=== PATIENT | male | born 1990 | race African-American/Black ===

== ENCOUNTER 2025-02-05 17:32 | Inpatient (IN) | payer OTHER, SELFPAY ==
[2025-02-05 17:51] VITALS: BP 154/74; PULSE 123; RESP 18; TEMP 36.9; O2SAT 99; BMI 21.7
--- NOTE | 2025-02-05 19:32 | ED.SKABFB ---
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 He has a history of hidradenitis suppurative and in [place] has been working with Dermatology, surgeons and primary care. And on multiple antibiotics for control including clindamycin, doxycycline, rifampin and minocycline currently is on both clindamycin and rifampin. He states that he is having a significant flare of his hidradenitis suppurative with increasing pain and difficulty sitting with purulence from multiple sites along his buttock and groin. Did speak with his heating fixture tender in [place] who said that the next step in treatment would either be surgery or 1 of the biologic injectables. 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 He comes in for further evaluation. Aside from significant pain he does not complain of fevers or chills. He is concerned that the draining is getting worse Related Data Home Medications ?Medication ?Instructions ?Recorded ?Confirmed clindamycin HCl 300 mg capsule 300 mg PO BID 02/06/25 02/06/25 prednisone 10 mg tablet 30 mg PO DAILY 02/06/25 02/06/25 rifampin 300 mg capsule 600 mg PO DAILY 02/06/25 02/06/25 Allergies Allergy/AdvReac Type Severity Reaction Status Date / Time Penicillins Allergy Severe Hives Verified 02/05/25 17:50 Review of Systems Review of Systems Narrative: Pertinent positive and negative findings as per HPI Patient History Medical History Suppurative hidradenitis Social History household members: family Smoking Status: Never smoker alcohol intake: current Smoking Status: Never smoker Exam Initial Vital Signs Initial Vital Signs: Vital Signs Temperature 98.5 F 02/05/25 17:51 Pulse Rate 123 H 02/05/25 17:51 Respiratory Rate 18 02/05/25 17:51 Blood Pressure 154/74 H 02/05/25 17:51 Pulse Oximetry 99 02/05/25 17:51 Oxygen Delivery Method Room Air 02/05/25 17:51 General: Healthy appearing, in obvious pain but Able to give a complete and coherent history. Well-nourished well-developed HEENT: Moist mucous membranes, normal sclera with reactive pupils, Respiratory: Lungs are clear to auscultation, no wheezing no rales no rhonchi. Full and symmetrical air movement Cardiac: Tachycardic but otherwise Regular rate and rhythm no murmurs no bruits Abdomen: Soft, nontender, no rebound or guarding, no flank pain Skin: Skin over the left buttocks and groin with induration and drainage with scarring consistent with hidradenitis suppurative Neurologic: Grossly neurologically intact with no obvious asymmetries or abnormalities Extremities: No trauma, well perfused Psych: Cooperative, appropriate insight and affect Course Orders Ordered: Acetaminophen (Acetaminophen 325 Mg Tablet) 975 mg PO Q6H PRN PRN Reason: Fever/Mild Pain (1-3) Hydromorphone HCl (Hydromorphone 0.5 Mg Inj) 0.5 mg IV Q2H PRN PRN Reason: Pain, Severe (7-10) Last Admin: 02/06/25 04:04 Dose: 0.5 mg Documented By: [facility] Lactated Ringer's (Lactated Ringers) 1,000 mls @ 100 mls/hr IV CONT [facility] Last Admin: 02/06/25 02:27 Dose: 100 mls/hr Documented By: [facility] Ceftriaxone Sodium 2,000 mg/ (Sodium Chloride) 100 mls @ 200 mls/hr IV Q24H [facility] Vancomycin HCl (Vancomycin) 1,000 mg in 200 mls @ 200 mls/hr IV Q8H [facility] Naloxone HCl (Naloxone 0.4 Mg/Ml Vial) 0.2 mg IV Q2MIN PRN PRN Reason: Opiate Reversal Ondansetron HCl (Ondansetron 4 Mg/2 Ml Inj) 4 mg IV Q8HR PRN PRN Reason: Nausea And Vomiting Tramadol HCl (Tramadol 50 Mg Tablet) 100 mg PO Q6H PRN PRN Reason: Pain, Moderate (4-6) Vancomycin HCl (Vancomycin Per Pharmacy) 1 request MIS NOW PRN PRN Reason: cellulitis Vancomycin HCl (Vancomycin Trough) 1 request [facility] [address] [facility] Stop: 02/07/25 11:31 Discontinued Medications Hydromorphone HCl (Hydromorphone 0.5 Mg Inj) 0.5 mg IV Q15MIN PRN PRN Reason: Pain, Ceftriaxone Sodium 2,000 mg/ (Sodium Chloride) 100 mls @ 200 mls/hr IV NOW ONE Stop: 02/05/25 19:59 Last Infusion: 02/05/25 21:10 Dose: Infused Documented By: Admin: 02/05/25 20:32 Dose: 200 mls/hr Documented By: SHRADDHA Vancomycin HCl/Dextrose (Vancomycin) 1,500 mg in 300 mls @ 200 mls/hr IV NOW ONE Stop: 02/05/25 21:44 Last Infusion: 02/05/25 22:48 Dose: Infused Documented By: Admin: 02/05/25 21:15 Dose: 200 mls/hr Documented By: LAM Vancomycin HCl 750 mg/ Sodium (Chloride) 250 mls @ 250 mls/hr IV Q8H [facility] Last Admin: 02/06/25 06:07 Dose: 250 mls/hr Documented By: DEBORAH Ketorolac Tromethamine (Ketorolac 30 Mg/Ml Vial) 15 mg IV NOW ONE Stop: 02/05/25 19:59 Last Admin: 02/05/25 20:32 Dose: 15 mg Documented By: SHRADDHA Oxycodone/Acetaminophen (Oxycodone/Acetaminophen 5/325 Tablet) 1 tab PO NOW ONE Stop: 02/05/25 23:39 Last Admin: 02/05/25 23:55 Dose: 1 tab Documented By: EDELMIRA Vancomycin HCl (Vancomycin Per Pharmacy) 1 request MISC NOW ONE Stop: 02/05/25 20:02 Last Admin: 02/05/25 21:36 Dose: 1 request Documented By: SHRADDHA Vital Signs Vital signs: Vital Signs - 8 hr 02/05/25 17:51 02/05/25 21:47 Temperature 98.5 F Pulse Rate 123 H 90 Respiratory Rate 18 18 Blood Pressure 154/74 H 115/71 Pulse Oximetry 99 100 Oxygen Delivery Method Room Air Room Air MDM - Skin/Abscess/Foreign Bdy Lab Data 02/06/25 06:32 02/06/25 06:32 Labs: Lab Results 02/05/25 Range/Units 20:15 WBC 13.3 H (4.5-11.0) X10^3/uL RBC 3.97 L (4.5-5.9) X10^6/uL Hgb 12.3 L (13.5-17.5) g/dL Hct 36.9 L (41-53) % MCV 92.9 (80-100) fL MCH 31.0 (26-34) PG MCHC 33.4 (30-36) % RDW 12.8 (11.6-14.8) % Plt Count 549 H (150-400) X10^3/uL Neut % (Auto) 71.5 (50-75) % Lymph % (Auto) 21.6 L (25-40) % [place] % (Auto) 5.4 (3-14) % Eos % (Auto) 0.8 L (2-4) % Baso % (Auto) 0.7 (0-2) % Neut # (Auto) 9500 H (1618-1408) /uL Lymph # (Auto) 2900 (2616-5155) /uL [place] # (Auto) 700 (0-900) /uL Eos # (Auto) 100 (0-450) /uL Baso # (Auto) 100 (0-100) /uL Sodium 138 (137-145) mmol/L Potassium 4.5 (3.4-5.1) mmol/L Chloride 103 (98-107) mmol/L Carbon Dioxide 27 (22-32) mmol/L BUN 16 (9-20) mg/dL Creatinine 1.15 (0.66-1.25) mg/dL Estimated GFR > 60 (>60) mL/min BUN/Creatinine Ratio 13.9 (6-22) Glucose 97 (70-99) mg/dL Lactate 1.0 (0.7-2.1) mmol/L Calcium 9.1 (8.4-10.2) mg/dL Total Bilirubin 0.3 (0.2-1.3) mg/dL AST 28 (17-59) IU/L ALT 24 (<50) IU/L Alkaline Phosphatase 99 (38-126) U/L Total Protein 9.9 H (6.3-8.2) g/dL Albumin 3.8 (3.5-5.0) g/dL Globulin 6.1 H (1.7-4.1) g/dL Albumin/Globulin Ratio 0.6 L (1.0-2.8) Imaging Data CT scan - abdomen/pelvis: Radiologist's Impression: PROCEDURE: CT ABDOMEN PELVIS W CON INDICATIONS: buttock and groin abscess TECHNIQUE: After the administration of intravenous contrast, axial sections acquired from the lung bases to the pubic symphysis. Coronal and sagittal reformats were performed. For radiation dose reduction, the following was used: automated exposure control, adjustment of mA and/or kV according to patient size. COMPARISON: None. FINDINGS: Image quality: Diagnostic. Lower Chest: No significant findings. ABDOMEN: Liver: No solid mass. Gallbladder: No wall thickening or calcified stones. Biliary ducts: No biliary dilation. Pancreas: No ductal dilation. Spleen: Size is within normal limits. Adrenal Glands: No adrenal nodules. Kidneys and Ureters: Symmetric enhancement. No nephrolithiasis or hydronephrosis. No visible mass or cyst requiring follow up. No hydroureter. Stomach and Bowel: Stomach and small bowel loops are normal caliber. Normal quantity of colonic stool. No suspicious colon wall thickening or inflammation. Normal appendix. Peritoneum: No abnormal intraperitoneal fluid. No free air. Ventral Wall: No significant ventral hernia. Abdominal Nodes: No retroperitoneal or mesenteric adenopathy by size criteria. Vessels: The abdominal aorta, IVC, and portal vein are of normal caliber. PELVIS: Pelvic Organs: Normal size prostate gland. Bladder: No bladder wall thickening, accounting for underdistention. Pelvic Nodes: Borderline left common iliac/pelvic sidewall node measuring 9 mm. Bulky left inguinal node measuring at least 1.5 cm short axis. Miscellaneous: Diffuse skin thickening over the left medial buttock from the superior gluteal cleft, inferior to the level of the thigh. At the inferior-most aspect, within the thickened skin, there is of small, ill-defined area measuring by 1.3 cm of decreased density which may be small phlegmon. There are also scattered foci of gas within the thickened skin. Skin thickening extends anteriorly to the perineal body and also involves the inferomedial right gluteal region. No other areas fluid or definite foci of gas. Bones: No aggressive osseous abnormality. IMPRESSION: Findings of cellulitis along the gluteal and perineal regions with a few foci of gas within the skin. Very small possible phlegmon in the left gluteal region. 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 Scattered reactive adenopathy in the left pelvis. Dictated by: Erica Suarez M.D. 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 Significant induration and drainage throughout the buttocks and groin worse on the left side Lab Test results independently reviewed as above. Pertinent findings: CBC shows a white count of 13.3, H and H of 12.3 and 36.9 Chemistries are reassuring with creatinine at 1.15 Lactic acid is not elevated Imaging studies independently reviewed: CT scan is reviewed. Reactive adenopathy, superficial cellulitis punctate areas of deeper infection no deeper abscess. Possibility of Yobany's gangrene was brought up by the radiologist however the subcutaneous air appreciated absolutely explained with his hidradenitis tracts. Consultations: Discussed with Dr Weber, surgeon. will consult will discuss with hospitalist. Treatments: Vancomycin, ceftriaxone Toradol, Dilaudid Re-evaluations: Discussed findings with the patient along with recommendation for hospitalization for IV antibiotics and surgical consultation to decide if any of these tracts need to be unroofed. Discussion: 34-year-old gentleman with severe hidradenitis suppurative with increasing infection despite clindamycin and rifampin appropriate suppressive doses currently being used. Increasing drainage and pain. CT scan shows a thickened skin with cellulitis, subcutaneous air as would be expected with this process no obvious deeper abscess but he does have reactive nodes. I recommended hospitalization for IV antibiotics and surgical consultation. 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
--- NOTE | 2025-02-05 19:59 | DI.CT.S_ITS ---
PROCEDURE: CT ABDOMEN PELVIS W CON INDICATIONS: buttock and groin abscess TECHNIQUE: After the administration of intravenous contrast, axial sections acquired from the lung bases to the pubic symphysis. Coronal and sagittal reformats were performed. For radiation dose reduction, the following was used: automated exposure control, adjustment of mA and/or kV according to patient size. COMPARISON: None. FINDINGS: Image quality: Diagnostic. Lower Chest: No significant findings. ABDOMEN: Liver: No solid mass. Gallbladder: No wall thickening or calcified stones. Biliary ducts: No biliary dilation. Pancreas: No ductal dilation. Spleen: Size is within normal limits. Adrenal Glands: No adrenal nodules. Kidneys and Ureters: Symmetric enhancement. No nephrolithiasis or hydronephrosis. No visible mass or cyst requiring follow up. No hydroureter. Stomach and Bowel: Stomach and small bowel loops are normal caliber. Normal quantity of colonic stool. No suspicious colon wall thickening or inflammation. Normal appendix. Peritoneum: No abnormal intraperitoneal fluid. No free air. Ventral Wall: No significant ventral hernia. Abdominal Nodes: No retroperitoneal or mesenteric adenopathy by size criteria. Vessels: The abdominal aorta, IVC, and portal vein are of normal caliber. PELVIS: Pelvic Organs: Normal size prostate gland. Bladder: No bladder wall thickening, accounting for underdistention. Pelvic Nodes: Borderline left common iliac/pelvic sidewall node measuring 9 mm. Bulky left inguinal node measuring at least 1.5 cm short axis. Miscellaneous: Diffuse skin thickening over the left medial buttock from the superior gluteal cleft, inferior to the level of the thigh. At the inferior-most aspect, within the thickened skin, there is of small, ill-defined area measuring by 1.3 cm of decreased density which may be small phlegmon. There are also scattered foci of gas within the thickened skin. Skin thickening extends anteriorly to the perineal body and also involves the inferomedial right gluteal region. No other areas fluid or definite foci of gas. Bones: No aggressive osseous abnormality. IMPRESSION: Findings of cellulitis along the gluteal and perineal regions with a few foci of gas within the skin. Very small possible phlegmon in the left gluteal region. 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 Scattered reactive adenopathy in the left pelvis. Dictated by: Erica Suarez M.D. on 02/05/2025 at 20:53 Approved by: Erica Suarez M.D. on 02/05/2025 at 21:01
[2025-02-05 20:27] LABS: Add Manual Diff / Slide Review NO; Basophils Absolute Auto 100 /uL (0-100); Basophils Percent Auto 0.7 % (0-2); Eosinophils Absolute Auto 100 /uL (0-450); Eosinophils Percent Auto 0.8 % (2-4); Hematocrit 36.9 % (41-53); Hemoglobin 12.3 g/dL (13.5-17.5); Lymphocytes Absolute Auto 2900 /uL (1100-4500); Lymphocytes Percent Auto 21.6 % (25-40); Mean Corpuscular HGB Conc 33.4 % (30-36); Mean Corpuscular Volume 92.9 fL (80-100); Monocytes Absolute Auto 700 /uL (0-900); Monocytes Percent Auto 5.4 % (3-14); Neutrophils Absolute Auto 9500 /uL (1500-7000); Neutrophils Percent Auto 71.5 % (50-75); Platelet Count 549 X10^3/uL (150-400); Red Blood Cell Count 3.97 X10^6/uL (4.5-5.9); Red Cell Distribution Width 12.8 % (11.6-14.8); White Blood Cell Count 13.3 X10^3/uL (4.5-11.0)
[2025-02-05] MEDS: cefTRIAXone 2,000 MG in SODIUM CHLORIDE 0.9% 100 ML 200 MG IV (20:32)
[2025-02-05] MEDS: KETOROLAC 30 MG/ML VIAL 15 MG IV (20:32)
[2025-02-05 20:39] LABS: Alanine Aminotransferase 24 IU/L (<50); Albumin 3.8 g/dL (3.5-5.0); Albumin Globulin Ratio 0.6 (1.0-2.8); Alkaline Phosphatase 99 U/L (38-126); Aspartate Aminotransferase 28 IU/L (17-59); BUN Creatinine Ratio 13.9 (6-22); Bilirubin Total 0.3 mg/dL (0.2-1.3); Blood Urea Nitrogen 16 mg/dL (9-20); Calcium 9.1 mg/dL (8.4-10.2); Carbon Dioxide 27 mmol/L (22-32); Chloride 103 mmol/L (98-107); Estimated Glomerular Filt Rate > 60 mL/min (>60); Globulin 6.1 g/dL (1.7-4.1); Glucose 97 mg/dL (70-99); HEMOLYSIS < 15 (0-50); Potassium 4.5 mmol/L (3.4-5.1); Sodium 138 mmol/L (137-145); Total Protein 9.9 g/dL (6.3-8.2)
[2025-02-05] MEDS: VANCOMYCIN 1,500 MG/300 ML PIGGYBACK 200 MG IV (21:15)
[2025-02-05] MEDS: VANCOMYCIN PER PHARMACY 1 REQUEST MISC (21:36)
[2025-02-05 21:47] VITALS: BP 115/71; PULSE 90; RESP 18; O2SAT 100
[2025-02-05] MEDS: OXYCODONE/ACETAMINOPHEN 5/325 TABLET 1 TAB PO (23:55)
[2025-02-06] VITALS (16 sets, daily range): BP systolic 97–141; BP diastolic 49–83; PULSE 64–91; RESP 12–18; TEMP 36.1–36.7; O2SAT 97–100; BMI 20.9
--- NOTE | 2025-02-06 01:17 | PC.WOUNDPHOT ---
Right armpit Left armpit back buttocks Left buttocks/thigh Right buttocks/thigh
--- NOTE | 2025-02-06 01:52 | PC.WOUNDPHOT ---
Left cheek/neck Right neck chin
--- NOTE | 2025-02-06 01:58 | P.HP_ITS ---
History of Present Illness History of Present Illness Date Patient Seen: 02/06/25 Time Patient Seen: 01:00 Chief complaint: swelling and pain in groin Narrative: 34 y/o with PMH of hydradenitis suppurativa on current maintenance therapy with rifampin, clindamycin and prednisone, came to ED with swelling and pain in groin and multiple draining boils on left buttock and groin. Mild leukocytosis. Has significant tenderness and pain preventing him to work. He gets care in [place] where he follows with PCP, clinical nutritionist and surgeon for hydradenitis. 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 Discussed with surgery for I&D upon admission to medicine for IV abx and pain control.. [facility] Medical History Suppurative hidradenitis Social History household members: family Smoking Status: Never smoker alcohol intake: current Meds Home Medications and Allergies Home Medications ?Medication ?Instructions ?Recorded ?Confirmed ?Type clindamycin HCl 300 mg capsule 300 mg PO BID 02/06/25 02/06/25 History prednisone 10 mg tablet 30 mg PO DAILY 02/06/2501/26 History rifampin 300 mg capsule 600 mg PO DAILY 02/06/2508/21 History Allergies Allergy/AdvReac Type Severity Reaction Status Date / Time Penicillins Allergy Severe Hives Verified 02/05/25 17:50 Review of Systems Review of Systems Narrative: General - without fever or chills CVS - w/o chest pain RS - w/o cough ro dyspnea GI / - negative SKIN - draining boils in left groin / buttock Exam Vital Signs (past 8 hours): - 02/05/25 21:47 02/06/25 00:12 02/06/25 00:30 Temperature 98.1 F Pulse Rate 90 89 89 Respiratory Rate 18 18 18 Blood Pressure 115/71 141/72 H 105/63 Pulse Oximetry 100 100 100 Oxygen Delivery Method Room Air Room Air Oxygen Flow Rate 0 02/06/25 01:17 Temperature Pulse Rate Respiratory Rate Blood Pressure Pulse Oximetry Oxygen Delivery Method Room Air Oxygen Flow Rate Oxygen Delivery Method Room Air Oxygen Flow Rate 0 Narrative Exam Narrative: General - in no distress Skin - Lt buttock / groin - cellulitis, draining hydradenitis supp. CVVS - RRR RS - normal respiratory effort Neuro - lucid, normal mood, w/o deficits Objective Imaging CT scan - abdomen: Radiologist's impression: Findings of cellulitis along the gluteal and perineal regions with a few foci of gas within the skin. Very small possible phlegmon in the left gluteal region. 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 Scattered reactive adenopathy in the left pelvis. Labs 02/05/25 20:15 02/05/25 20:15 Labs: Laboratory Results - last 24 hr 02/05/25 20:15 WBC 13.3 H RBC 3.97 L Hgb 12.3 L Hct 36.9 L MCV 92.9 MCH 31.0 MCHC 33.4 RDW 12.8 Plt Count 549 H Neut % (Auto) 71.5 Lymph % (Auto) 21.6 L [place] % (Auto) 5.4 Eos % (Auto) 0.8 L Baso % (Auto) 0.7 Neut # (Auto) 9500 H Lymph # (Auto) 2900 [place] # (Auto) 700 Eos # (Auto) 100 Baso # (Auto) 100 Sodium 138 Potassium 4.5 Chloride 103 Carbon Dioxide 27 BUN 16 Creatinine 1.15 Estimated GFR > 60 BUN/Creatinine Ratio 13.9 Glucose 97 Lactate 1.0 Calcium 9.1 Total Bilirubin 0.3 AST 28 ALT 24 Alkaline Phosphatase 99 Total Protein 9.9 H Albumin 3.8 Globulin 6.1 H Albumin/Globulin Ratio 0.6 L Assessment & Plan Assessment and plan (1) Hidradenitis suppurativa of anogenital region: Status: Acute (2) Abscess of skin or subcutaneous tissue: Qualifiers: Site of cutaneous abscess: buttock Qualified Code(s): L02.31 - Cutaneous abscess of buttock Status: Acute (3) Cellulitis: Qualifiers: Site of cellulitis: buttock Qualified Code(s): L03.317 - Cellulitis of buttock Status: Acute Assessment & Plan narrative: Hydradenitis Suppurativa of groin / Cellulitis - IV Rocephin and vancomycin on admission, can deescalate - pain control - NPO, LR for possible I&D by surgery in AM DVT prophylaxis - SCDs Patient consented to telemedicine, audio-video encounter with RN assisting during the exam. Patient located at [place], [place]. Provider located in [place]. Time-Based Coding :: [TOTAL MINUTES] spent with patient and on the chart (including review of chart, obtaining history, exam, reviewing outside data, placing orders, documenting exam and treatment plan, and counseling patient) on [DATE].
[2025-02-06] MEDS: LACTATED RINGERS 1,000 ML 100 ML IV (02:27)
--- NOTE | 2025-02-06 02:49 | PC.NURSE ---
Patient admitted to room 210 per wheelchair from ER. States he came to the ER due to HS flare. Is alert and oriented. Breath sounds CTA with RA sat of 100%. HRR. Denied nausea. BT present and abdomen is soft. Denied dysuria with urination. Is independent with mobility but has tentative movements related to discomfort from HS. Open, draining wounds beneath bilateral axilla; redressed. Open wounds surrounded by firmness noted on left buttock. Open, draining, purulent, foul smelling wounds on bilateral groin/inner thighs. Drainage is brown with blood tinge; wound cultures done and sent to lab. Denied any pain at time of assessment. Fall risk score is low. Provided urinal to use in bed so as to minimize movements. Declined use of SCD's. Seen by Dr Meyer via tele medicine. MD talked with patient and discussed need for antibiotics and surgical consult. Wound pictures taken and MD will review them in [employer] once they are uploaded to chart. Oriented to room and call light. Provided snack per MD verbal order after which he was made NPO. Placed in contact isolation until wound culture results are returned.
[2025-02-06] MEDS: HYDROMORPHONE 0.5 MG INJ IV (04:04)
[2025-02-06] MEDS: VANCOMYCIN HCL 750 MG in SODIUM CHLORIDE 0.9% 250 ML 250 MG IV (06:07)
[2025-02-06 06:43] LABS: Add Manual Diff / Slide Review NO; Basophils Absolute Auto 100 /uL (0-100); Basophils Percent Auto 0.8 % (0-2); Eosinophils Absolute Auto 200 /uL (0-450); Eosinophils Percent Auto 1.3 % (2-4); Hematocrit 33.5 % (41-53); Hemoglobin 11.5 g/dL (13.5-17.5); Lymphocytes Absolute Auto 2200 /uL (1100-4500); Lymphocytes Percent Auto 17.4 % (25-40); Mean Corpuscular HGB Conc 34.2 % (30-36); Mean Corpuscular Hemoglobin 31.6 PG (26-34); Mean Corpuscular Volume 92.5 fL (80-100); Monocytes Absolute Auto 800 /uL (0-900); Monocytes Percent Auto 6.5 % (3-14); Neutrophils Absolute Auto 9300 /uL (1500-7000); Platelet Count 448 X10^3/uL (150-400); Red Blood Cell Count 3.62 X10^6/uL (4.5-5.9); Red Cell Distribution Width 12.8 % (11.6-14.8); White Blood Cell Count 12.6 X10^3/uL (4.5-11.0)
[2025-02-06 06:54] LABS: BUN Creatinine Ratio 12.8 (6-22); Blood Urea Nitrogen 16 mg/dL (9-20); Calcium 8.8 mg/dL (8.4-10.2); Carbon Dioxide 25 mmol/L (22-32); Chloride 105 mmol/L (98-107); Estimated Glomerular Filt Rate > 60 mL/min (>60); Glucose 109 mg/dL (70-99); HEMOLYSIS < 15 (0-50); Potassium 4.2 mmol/L (3.4-5.1); Sodium 136 mmol/L (137-145)
--- NOTE | 2025-02-06 08:25 | PM.HP.IH.1 ---
History of Present Illness History of Present Illness Date Patient Seen: 02/06/25 Time Patient Seen: 08:00 Chief complaint: swelling and pain in groin [facility] Medical History Suppurative hidradenitis Social History household members: family Smoking Status: Never smoker alcohol intake: current Meds Home Medications and Allergies Home Medications ?Medication ?Instructions ?Recorded ?Confirmed ?Type clindamycin HCl 300 mg capsule 300 mg PO BID 02/06/25 02/06/25 History prednisone 10 mg tablet 30 mg PO DAILY 02/06/25 02/06/25 History rifampin 300 mg capsule 600 mg PO DAILY 02/06/25 02/06/25 History Allergies Allergy/AdvReac Type Severity Reaction Status Date / Time Penicillins Allergy Severe Hives Verified 02/05/25 17:50 Exam Vital Signs (past 8 hours): - 02/06/25 00:30 02/06/25 01:17 Temperature 98.1 F Pulse Rate 89 Respiratory Rate 18 Blood Pressure 105/63 Pulse Oximetry 100 Oxygen Delivery Method Room Air Oxygen Flow Rate 0 Oxygen Delivery Method Room Air Oxygen Flow Rate 0 Objective Labs 02/07/25 05:55 02/07/25 05:55 Labs: Laboratory Results - last 24 hr 02/05/25 02/06/25 20:15 06:32 WBC 13.3 H 12.6 H RBC 3.97 L 3.62 L Hgb 12.3 L 11.5 L Hct 36.9 L 33.5 L MCV 92.9 92.5 MCH 31.0 31.6 MCHC 33.4 34.2 RDW 12.8 12.8 Plt Count 549 H 448 H Neut % (Auto) 71.5 74.0 Lymph % (Auto) 21.6 L 17.4 L [place] % (Auto) 5.4 6.5 Eos % (Auto) 0.8 L 1.3 L Baso % (Auto) 0.7 0.8 Neut # (Auto) 9500 H 9300 H Lymph # (Auto) 2900 2200 [place] # (Auto) 700 800 Eos # (Auto) 100 200 Baso # (Auto) 100 100 Sodium 138 136 L Potassium 4.5 4.2 Chloride 103 105 Carbon Dioxide 27 25 BUN 16 16 Creatinine 1.15 1.25 Estimated GFR > 60 > 60 BUN/Creatinine Ratio 13.9 12.8 Glucose 97 109 H Lactate 1.0 Calcium 9.1 8.8 Total Bilirubin 0.3 AST 28 ALT 24 Alkaline Phosphatase 99 Total Protein 9.9 H Albumin 3.8 Globulin 6.1 H Albumin/Globulin Ratio 0.6 L Assessment & Plan Time-Based Coding :: [TOTAL MINUTES] spent with patient and on the chart (including review of chart, obtaining history, exam, reviewing outside data, placing orders, documenting exam and treatment plan, and counseling patient) on [DATE]. [employer] Document charge(s): Yes
--- NOTE | 2025-02-06 09:17 | P.CONS_ITS ---
History of Present Illness Consult details Date Patient Seen: 02/06/25 Time Patient Seen: 08:00 Chief complaint: swelling and pain in groin Narrative: 34-year-old male with history of hidradenitis suppurativa managed as an outpatient by a energy systems laboratory director in [place]. The patient's job brought him to [place] at which time he noted a flare of his hidradenitis with increased pain and drainage. Proceeded to the emergency department where several areas of drainage from both groins and both buttocks were noted. CT scan demonstrated a possible phlegmon. I am consulted to render a surgical opinion regarding the need for surgical intervention to drain the various areas of his groin and buttock. He indicates that he feels better this morning than he did at presentation last night. Meds Home Medications and Allergies Home Medications ?Medication ?Instructions ?Recorded ?Confirmed ?Type clindamycin HCl 300 mg capsule 300 mg PO BID 02/06/25 02/06/25 History prednisone 10 mg tablet 30 mg PO DAILY 02/06/2501/26 History rifampin 300 mg capsule 600 mg PO DAILY 02/06/2508/21 History Allergies Allergy/AdvReac Type Severity Reaction Status Date / Time Penicillins Allergy Severe Hives Verified 02/05/25 17:50 Review of Systems Review of Systems Narrative: Comprehensive review of systems negative to direct questioning with the exception of the previously mentioned chronic conditions. Exam Vital Signs (past 8 hours): - 02/06/25 07:00 Temperature 97.5 F L Pulse Rate 85 Respiratory Rate 16 Blood Pressure 113/67 Pulse Oximetry 99 Oxygen Flow Rate 0 Oxygen Delivery Method Room Air Oxygen Flow Rate 0 Narrative Exam Narrative: Head is normocephalic and atraumatic. Neck is supple. Back is without CVA or spinous process tenderness. Lungs are clear to auscultation. Chest is symmetric and nontender with normal inspiratory and expiratory excursion. Heart has a regular rate and rhythm with no murmur or gallop. Abdomen is soft and nontender with normal bowel sounds. Groin exam is remarkable for 1 x 2 cm areas of induration, tenderness and drainage bilaterally at the scrotal base. There is a small area of fluctuance in the right groin of 7 x 12 mm size. Right medial thigh is remarkable for a 4 x 5 cm area of tenderness and fluctuance with a few punctate areas of drainage. A similar areas present on the left medial thigh. There is on the right buttock a 3 x 4 cm area of induration with no drainage. Left buttock is remarkable for a 6 by 8 mm area of induration, tenderness with a few dependent areas of punctate drainage. Genital exam is otherwise unremarkable. Neurological exam is nonfocal. Extremities manifests full range of motion with a 5 of 5 strength. Objective Labs 02/06/25 06:32 02/06/25 06:32 Labs: Laboratory Results - last 24 hr 02/05/25 02/06/25 20:15 06:32 WBC 13.3 H 12.6 H RBC 3.97 L 3.62 L Hgb 12.3 L 11.5 L Hct 36.9 L 33.5 L MCV 92.9 92.5 MCH 31.0 31.6 MCHC 33.4 34.2 RDW 12.8 12.8 Plt Count 549 H 448 H Neut % (Auto) 71.5 74.0 Lymph % (Auto) 21.6 L 17.4 L [place] % (Auto) 5.4 6.5 Eos % (Auto) 0.8 L 1.3 L Baso % (Auto) 0.7 0.8 Neut # (Auto) 9500 H 9300 H Lymph # (Auto) 2900 2200 [place] # (Auto) 700 800 Eos # (Auto) 100 200 Baso # (Auto) 100 100 Sodium 138 136 L Potassium 4.5 4.2 Chloride 103 105 Carbon Dioxide 27 25 BUN 16 16 Creatinine 1.15 1.25 Estimated GFR > 60 > 60 BUN/Creatinine Ratio 13.9 12.8 Glucose 97 109 H Lactate 1.0 Calcium 9.1 8.8 Total Bilirubin 0.3 AST 28 ALT 24 Alkaline Phosphatase 99 Total Protein 9.9 H Albumin 3.8 Globulin 6.1 H Albumin/Globulin Ratio 0.6 L [facility] Medical History Suppurative hidradenitis Social History household members: family Tobacco & Substance Use Smoking Status: Never smoker alcohol intake: current Assessment & Plan Assessment and plan (1) Hidradenitis suppurativa of anogenital region: Status: Acute (2) Abscess of skin or subcutaneous tissue: Qualifiers: Site of cutaneous abscess: buttock Qualified Code(s): L02.31 - Cutaneous abscess of buttock Status: Acute Plan IV antibiotics are indicated. I believe the individual is best served with drainage and debridement of groin, thighs and buttock areas of induration and drainage with secondary intent healing. Alternatives, risks and benefits were discussed in detail. The patient desires to proceed as I have outlined. We will accommodate him today when an OR can be made available. Time-Based Coding :: [TOTAL MINUTES] spent with patient and on the chart (including review of chart, obtaining history, exam, reviewing outside data, placing orders, documenting exam and treatment plan, and counseling patient) on [DATE]. PROFEE Charge Codes Inpatient or Observation consultation: [id number]
--- NOTE | 2025-02-06 12:10 | CM.DANOTE ---
Initial DCP Assessment Visit Note Reviewed EMR and team rounds for pt's medical status and updates. Met with pt at bedside to introduce self and role, pt was found to be somnolent, however was alert/oriented during this visit interaction. Pt lives independently with family in his home in [place], [place]. 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 His shipping company will take care of his transportation and arrangements at the time of discharge. No CM needs other than completing Fit For Duty paperwork forms and Surgeon's recommendations in order for pt to have 2-weeks medical leave for recovery needs. Payor: Cristopher Attending: Dr. Solorzano/Hospitalist Pt is a 34 year-old M sent by his shipping company to the ED for further evaluation of painful, open, draining wounds on his buttock. Pt has a medical hx of hydradenitis suppurative, and has been working with his medical team in [place] due to several, chronic flares that he gets. He's on a combination of antibiotics and dermatology care. Unfortunately, pt does have a flare with several open, draining wounds along his buttock. Surgery was consulted, and the plan was made to take him to the OR this afternoon for an I&D. Pt may d/c after the procedure, or tomorrow am to a local motel. His company will be assisting him to make these arrangements. Discharge Planning/Care Management CM Discharge Assessment Start: 02/06/25 00:14 Freq: Status: Active Protocol: Document 02/06/25 12:08 DPL (Rec: 02/06/25 12:09 DPL [id number]) Discharge Planning Assessment Assigned Discharge MATHEUS Chen Marketing Communications Assistant Advance Directives? No History Provided By Patient,Medical Record Has Patient been No admitted in last 30 days? Prior Living House Arrangements Household Members family Type of Drives own vehicle transporation used prior to admit Independent with ADL Yes 's Is patient alert and Yes oriented? Caregiver for Yes: family Another Comment No identified home d/c needs at this time. Barriers to No Discharge Discharge Plan Home Referrals Initiated None needed Whiteboard Updated Yes in Patient Room with name and ext. # of Pig Furnace Operator Review Status In Process Please Provide Date 02/06/25 Initial DC Assessment Was Performed
[2025-02-06] MEDS: VANCOMYCIN 1,000 MG/200 ML PIGGYBACK 200 MG IV (12:22)
[2025-02-06] MEDS: LACTATED RINGERS 1,000 ML 42 ML IV (15:02)
--- NOTE | 2025-02-06 16:12 | SUR.OPER ---
Lithotomy on padded OR bed, head on pillow, arms secured on padded arm boards at <90 degrees abduction. Legs secured in padded yellow fins stirrups.
--- NOTE | 2025-02-06 16:27 | PM.HP.1 ---
History of Present Illness History of Present Illness Date Patient Seen: 02/06/25 Time Patient Seen: 01:00 Chief complaint: swelling and pain in groin Narrative: Per admitting provider, 34 y/o with PMH of hydradenitis suppurativa on current maintenance therapy with rifampin, clindamycin and prednisone, came to ED with swelling and pain in groin and multiple draining boils on left buttock and groin. Mild leukocytosis. Has significant tenderness and pain preventing him to work. 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 Discussed with surgery for I&D upon admission to medicine for IV abx and pain control.. [facility] Medical History Suppurative hidradenitis Social History household members: family Smoking Status: Never smoker alcohol intake: current Meds Home Medications and Allergies Home Medications ?Medication ?Instructions ?Recorded ?Confirmed ?Type clindamycin HCl 300 mg capsule 300 mg PO BID 02/06/25 02/06/25 History prednisone 10 mg tablet 30 mg PO DAILY 02/06/25 02/06/25 History rifampin 300 mg capsule 600 mg PO DAILY 02/06/25 02/06/25 History Allergies Allergy/AdvReac Type Severity Reaction Status Date / Time Penicillins Allergy Severe Hives Verified 02/05/25 17:50 Review of Systems Review of Systems Narrative: All other systems reviewed with the patient and are negative unless otherwise stated. Exam Vital Signs (past 8 hours): - 02/06/25 15:03 Temperature 98.1 F Pulse Rate 88 Respiratory Rate 16 Blood Pressure 104/67 Pulse Oximetry 98 Oxygen Delivery Method Room Air Oxygen Delivery Method Room Air Oxygen Flow Rate 0 Narrative Exam Narrative: General - in no distress CVVS - RRR RS - normal respiratory effort Neuro - lucid, normal mood, w/o deficits Objective Labs 02/06/25 06:32 02/06/25 06:32 Labs: Laboratory Results - last 24 hr 02/05/25 02/06/25 20:15 06:32 WBC 13.3 H 12.6 H RBC 3.97 L 3.62 L Hgb 12.3 L 11.5 L Hct 36.9 L 33.5 L MCV 92.9 92.5 MCH 31.0 31.6 MCHC 33.4 34.2 RDW 12.8 12.8 Plt Count 549 H 448 H Neut % (Auto) 71.5 74.0 Lymph % (Auto) 21.6 L 17.4 L [place] % (Auto) 5.4 6.5 Eos % (Auto) 0.8 L 1.3 L Baso % (Auto) 0.7 0.8 Neut # (Auto) 9500 H 9300 H Lymph # (Auto) 2900 2200 [place] # (Auto) 700 800 Eos # (Auto) 100 200 Baso # (Auto) 100 100 Sodium 138 136 L Potassium 4.5 4.2 Chloride 103 105 Carbon Dioxide 27 25 BUN 16 16 Creatinine 1.15 1.25 Estimated GFR > 60 > 60 BUN/Creatinine Ratio 13.9 12.8 Glucose 97 109 H Lactate 1.0 Calcium 9.1 8.8 Total Bilirubin 0.3 AST 28 ALT 24 Alkaline Phosphatase 99 Total Protein 9.9 H Albumin 3.8 Globulin 6.1 H Albumin/Globulin Ratio 0.6 L Assessment & Plan Assessment & Plan narrative: Hydradenitis Suppurativa of groin / Cellulitis - IV Rocephin and vancomycin on admission, can deescalate once cultures available. Mild leukocytosis 13 on admit improved slightly to 12.6 today. - pain control as needed. - NPO today for planned surgery. - Cr 1.25 today, 1.15 on admit, no other signs of sepsis. Continue to monitor with morning labs. DVT prophylaxis - SCDs Code: Full, discussed with patient. DVT: SCDs I have utilized all available immediate resources to obtain, update, or review the patient's current medications. Dispo: patient admitted under inpatient status. Likely discharge home in 1-2 days depending on surgical interventions and care after. Additional history obtained via discussions with the overnight hospitalist. These discussions contributed to the creation of the above assessment and plan. I have reviewed patient's presenting documentation, labs, and imaging personally. Time-Based Coding :: [TOTAL MINUTES] spent with patient and on the chart (including review of chart, obtaining history, exam, reviewing outside data, placing orders, documenting exam and treatment plan, and counseling patient) on [DATE].
[2025-02-06] MEDS: LACTATED RINGERS 1,000 ML 120 ML IV (16:48)
--- NOTE | 2025-02-06 16:55 | PM.OP.1 ---
Operative Date/Time/Diagnoses Date of procedure: 02/06/25 Time of procedure: 15:30 Pre-op diagnosis: Hidradenitis suppurative Post-op diagnosis: same Procedure & Clinicians Procedure: Incision drainage and debridement Same procedure as scheduled: Yes Indications: Hidradenitis suppurative I Surgeon: Anton Samuel Click Yes if Unassisted: Yes Anesthesia Type: General Operative Notes Findings: Hidradenitis suppurativa with multiple serpiginous sub dermal sinus tracts. Closure Type: non-primary Specimen(s): other (Wound culture) Applied: none Estimated Blood Loss (mL): 50 Blood products transfused: none Procedure in detail: Patient was transported to the operating room and was placed on the table in the supine position. General endotracheal anesthesia was induced and the patient was placed in lithotomy position. The perineum and groins were prepped and draped in the usual sterile manner. Attention was directed to the right groin where a 1 x 2 cm abscess was incised and drained. This was packed open. There was no tracking. Attention was directed to the right medial thigh in a series of drainage sites were interconnected. These were traced with hemostats and lacrimal probes. The tracts were all unroofed sharply with the electrocautery and were packed open. This resulted in an X shape wound whose legs were 6 cm in length. Attention was directed to the left medial thigh. Another series of drainage sites were tract and the tract unroofed. This resulted in a wound of 5 cm length by 1 cm. A small abscess of the right scrotal base was incised and this was of 1 cm length. Attention was directed to the left buttock where another series of drainage sites were probed with hemostats and lacrimal probes. These were all unroofed and this traced up the left side of the gluteal cleft from a point overlying the ipsilateral ischial spine a distance of about 15 cm. All sinus tracts were bluntly debrided and hemostasis was obtained with direct pressure. Tracts were traced back to the point where dermis was firmly fixed to underlying tissues and completely unroofed. Dressings were applied. The patient tolerated the procedure well and was transported to the recovery room in stable condition. Complications: none Post-operative Condition: stable Disposition: PACU Plan for aftercare: Local wound care and pain control.
[2025-02-06] MEDS: OXYCODONE IR 5 MG TABLET PO (17:09)
[2025-02-06] MEDS: HYDROMORPHONE 1 MG INJ IV ×4 (17:10→17:25)
[2025-02-06] MEDS: LACTATED RINGERS 1,000 ML 125 ML IV (18:23)
--- NOTE | 2025-02-06 21:59 | PC.NURSE ---
shift boss RN was given note from desk interviewer staff to talk with Bessie at [employer]; RN confirmed this with patient prior to contacting hetras Patient verbalized okay to release information. RN called given number; and left a message to return call at main RN phone line; Patient is stable post opt, MD has a plan of care to monitor patient for 1-2 days for any signs of infection/complications and pain management; then D/C with oral medications [place] to [place] and [place].
[2025-02-06] MEDS: HYDROMORPHONE 2 MG TABLET PO (23:53)
[2025-02-07 02:00] VITALS: O2SAT 99
[2025-02-07] MEDS: HYDROMORPHONE 2 MG TABLET PO ×2 (04:09→08:46)
[2025-02-07 05:48] VITALS: O2SAT 99
[2025-02-07 06:16] LABS: Add Manual Diff / Slide Review NO; Basophils Absolute Auto 100 /uL (0-100); Basophils Percent Auto 0.6 % (0-2); Eosinophils Absolute Auto 100 /uL (0-450); Eosinophils Percent Auto 0.6 % (2-4); Hematocrit 31.6 % (41-53); Hemoglobin 10.8 g/dL (13.5-17.5); Lymphocytes Absolute Auto 1600 /uL (1100-4500); Lymphocytes Percent Auto 11.5 % (25-40); Mean Corpuscular HGB Conc 34.2 % (30-36); Mean Corpuscular Hemoglobin 31.3 PG (26-34); Mean Corpuscular Volume 91.5 fL (80-100); Monocytes Absolute Auto 500 /uL (0-900); Monocytes Percent Auto 4.1 % (3-14); Neutrophils Absolute Auto 11200 /uL (1500-7000); Neutrophils Percent Auto 83.2 % (50-75); Platelet Count 440 X10^3/uL (150-400); Red Blood Cell Count 3.46 X10^6/uL (4.5-5.9); Red Cell Distribution Width 12.5 % (11.6-14.8); White Blood Cell Count 13.5 X10^3/uL (4.5-11.0)
[2025-02-07 06:22] LABS: BUN Creatinine Ratio 13.6 (6-22); Blood Urea Nitrogen 15 mg/dL (9-20); Calcium 8.7 mg/dL (8.4-10.2); Carbon Dioxide 26 mmol/L (22-32); Chloride 103 mmol/L (98-107); Estimated Glomerular Filt Rate > 60 mL/min (>60); Glucose 87 mg/dL (70-99); HEMOLYSIS < 15 (0-50); Potassium 4.3 mmol/L (3.4-5.1); Sodium 134 mmol/L (137-145)
--- NOTE | 2025-02-07 07:45 | P.PN_ITS ---
Subjective Subjective Date Patient Seen: 02/07/25 Interval history: Chief complaint: Anal cleft and groin pain secondary to hidradenitis suppurativa and cellulitis History of present illness: 02/05/25: 34 y/o with PMH of hydradenitis suppurativa on current maintenance therapy with rifampin, clindamycin and prednisone, came to ED with swelling and pain in groin and multiple draining boils on left buttock and groin. Mild leukocytosis. Has significant tenderness and pain preventing him to work. 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 Discussed with surgery for I&D upon admission to medicine for IV abx and pain control.. CT of the abdomen pelvis: PELVIS: Pelvic Organs: Normal size prostate gland. Bladder: No bladder wall thickening, accounting for underdistention. Pelvic Nodes: Borderline left common iliac/pelvic sidewall node measuring 9 mm. Bulky left inguinal node measuring at least 1.5 cm short axis. Miscellaneous: Diffuse skin thickening over the left medial buttock from the superior gluteal cleft, inferior to the level of the thigh. At the inferior-most aspect, within the thickened skin, there is of small, ill-defined area measuring by 1.3 cm of decreased density which may be small phlegmon. There are also scattered foci of gas within the thickened skin. Skin thickening extends anteriorly to the perineal body and also involves the inferomedial right gluteal region. No other areas fluid or definite foci of gas. Bones: No aggressive osseous abnormality. IMPRESSION: Findings of cellulitis along the gluteal and perineal regions with a few foci of gas within the skin. Very small possible phlegmon in the left gluteal region. 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 Scattered reactive adenopathy in the left pelvis. Hospital course: 02/06: Patient underwent surgical debridement: Started on vancomycin and ceftriaxone in the emergency department Operative Notes Findings: Hidradenitis suppurativa with multiple serpiginous sub dermal sinus tracts. Closure Type: non-primary Specimen(s): other (Wound culture) ?...The perineum and groins were prepped and draped in the usual sterile manner. Attention was directed to the right groin where a 1 x 2 cm abscess was incised and drained. This was packed open. There was no tracking. Attention was directed to the right medial thigh in a series of drainage sites were interconnected. These were traced with hemostats and lacrimal probes. The tracts were all unroofed sharply with the electrocautery and were packed open. This resulted in an X shape wound whose legs were 6 cm in length. Attention was directed to the left medial thigh. Another series of drainage sites were tract and the tract unroofed. This resulted in a wound of 5 cm length by 1 cm. A small abscess of the right scrotal base was incised and this was of 1 cm length. Attention was directed to the left buttock where another series of drainage sites were probed with hemostats and lacrimal probes. These were all unroofed and this traced up the left side of the gluteal cleft from a point overlying the ipsilateral ischial spine a distance of about 15 cm. All sinus tracts were bluntly debrided and hemostasis was obtained with direct pressure. Tracts were traced back to the point where dermis was firmly fixed to underlying tissues and completely unroofed. Dressings were applied. The patient tolerated the procedure well and was transported to the recovery room in stable condition. Complications: none... 02/07: Pain satisfactory controlled postoperatively no fevers or chills overnight white count [id number] a 3% neutrophils Review of systems: No fevers or chills overnight No nausea or vomiting Good appetite No chest pains shortness of breath Physical exam: No acute distress No labored respirations No extremity edema Preliminary wound culture: Gram Stain Final 02/06/25-1757 White blood cells Moderate WBCs Gram Positive Cocci 4+ Gram Positive Rods 3+ Gram Negative Rods 1+ Aerobic Culture for wounds Pending Anaerobic Culture Pending Assessment and plan: Hydradenitis Suppurativa of groin / Cellulitis status post surgical debridement 02/06 * IV Rocephin and vancomycin on admission, changed to Zosyn per surgery stewardship * Monitor CBC tomorrow * Dressings per surgery orders Code: Full, discussed with patient. DVT: SCDs Time-Based Coding :: 35 minutes spent with patient and on the chart (including review of chart, obtaining history, exam, reviewing outside data, placing orders, documenting exam and treatment plan, and counseling patient) Exam Vital Signs (past 8 hours): - 02/06/25 23:49 02/07/25 02:00 02/07/25 05:48 Temperature 97.3 F L Pulse Rate 91 H Respiratory Rate 16 Blood Pressure 111/67 Pulse Oximetry 99 99 99 Oxygen Delivery Method Room Air Room Air Oxygen Flow Rate 0 Oxygen Delivery Method Room Air Oxygen Flow Rate 0 Objective Labs 02/07/25 05:55 02/07/25 05:55 Labs: Laboratory Results - last 24 hr 02/07/25 05:55 WBC 13.5 H RBC 3.46 L Hgb 10.8 L Hct 31.6 L MCV 91.5 MCH 31.3 MCHC 34.2 RDW 12.5 Plt Count 440 H Neut % (Auto) 83.2 H Lymph % (Auto) 11.5 L [place] % (Auto) 4.1 Eos % (Auto) 0.6 L Baso % (Auto) 0.6 Neut # (Auto) 20062 H Lymph # (Auto) 1600 [place] # (Auto) 500 Eos # (Auto) 100 Baso # (Auto) 100 Sodium 134 L Potassium 4.3 Chloride 103 Carbon Dioxide 26 BUN 15 Creatinine 1.10 Estimated GFR > 60 BUN/Creatinine Ratio 13.6 Glucose 87 Calcium 8.7 PFSH Medical History Suppurative hidradenitis Social History household members: family Smoking Status: Never smoker alcohol intake: current Assessment & Plan Time-Based Coding :: [TOTAL MINUTES] spent with patient and on the chart (including review of chart, obtaining history, exam, reviewing outside data, placing orders, documenting exam and treatment plan, and counseling patient) on [DATE].
[2025-02-07] MEDS: ENOXAPARIN 40 MG/0.4 ML SYRINGE SUBCUT (08:47)
[2025-02-07 10:00] VITALS: BP 116/67; PULSE 112; RESP 12; TEMP 37.1; O2SAT 98; O2SAT 99
--- NOTE | 2025-02-07 10:00 | P.PN_ITS ---
Subjective Subjective Date Patient Seen: 02/07/25 Time Patient Seen: 09:50 Exam Vital Signs (past 8 hours): - 02/07/25 05:48 Pulse Oximetry 99 Oxygen Delivery Method Room Air Oxygen Delivery Method Room Air Oxygen Flow Rate 0 Objective Labs 02/07/25 05:55 02/07/25 05:55 Labs: Laboratory Results - last 24 hr 02/07/25 05:55 WBC 13.5 H RBC 3.46 L Hgb 10.8 L Hct 31.6 L MCV 91.5 MCH 31.3 MCHC 34.2 RDW 12.5 Plt Count 440 H Neut % (Auto) 83.2 H Lymph % (Auto) 11.5 L [place] % (Auto) 4.1 Eos % (Auto) 0.6 L Baso % (Auto) 0.6 Neut # (Auto) 06958 H Lymph # (Auto) 1600 [place] # (Auto) 500 Eos # (Auto) 100 Baso # (Auto) 100 Sodium 134 L Potassium 4.3 Chloride 103 Carbon Dioxide 26 BUN 15 Creatinine 1.10 Estimated GFR > 60 BUN/Creatinine Ratio 13.6 Glucose 87 Calcium 8.7 PFSH Medical History Suppurative hidradenitis Social History household members: family Smoking Status: Never smoker alcohol intake: current Assessment & Plan Time-Based Coding :: [TOTAL MINUTES] spent with patient and on the chart (including review of chart, obtaining history, exam, reviewing outside data, placing orders, documenting exam and treatment plan, and counseling patient) on [DATE].
--- NOTE | 2025-02-07 10:02 | P.PN_ITS ---
Subjective Subjective Date Patient Seen: 02/07/25 Time Patient Seen: 09:50 Interval history: FEELS MUCH BETTER THAN PREOPERATIVELY. SIGNIFICANTLY LESS PAIN. TOLERANT OF REGULAR DIET. Exam Vital Signs (past 8 hours): - 02/07/25 05:48 Pulse Oximetry 99 Oxygen Delivery Method Room Air Oxygen Delivery Method Room Air Oxygen Flow Rate 0 Narrative Exam Narrative: LUNGS ARE CLEAR TO AUSCULTATION. HEART HAS A REGULAR RATE AND RHYTHM WITH NO MURMUR OR GALLOP. ABDOMEN IS SOFT AND NONTENDER WITH NORMAL BOWEL SOUNDS. DRESSING CHANGE WAS DONE ABOUT AN HOUR AGO. DRESSINGS ARE DRY. THEY APPEARED TO BE ADEQUATE. Objective Labs 02/07/25 05:55 02/07/25 05:55 Labs: Laboratory Results - last 24 hr 02/07/25 05:55 WBC 13.5 H RBC 3.46 L Hgb 10.8 L Hct 31.6 L MCV 91.5 MCH 31.3 MCHC 34.2 RDW 12.5 Plt Count 440 H Neut % (Auto) 83.2 H Lymph % (Auto) 11.5 L [place] % (Auto) 4.1 Eos % (Auto) 0.6 L Baso % (Auto) 0.6 Neut # (Auto) 71498 H Lymph # (Auto) 1600 [place] # (Auto) 500 Eos # (Auto) 100 Baso # (Auto) 100 Sodium 134 L Potassium 4.3 Chloride 103 Carbon Dioxide 26 BUN 15 Creatinine 1.10 Estimated GFR > 60 BUN/Creatinine Ratio 13.6 Glucose 87 Calcium 8.7 PFSH Medical History Suppurative hidradenitis Social History household members: family Smoking Status: Never smoker alcohol intake: current Assessment & Plan Assessment and plan (1) Hidradenitis suppurativa of anogenital region: Status: Acute Plan DOING WELL POSTOP DAY 1. CONTINUE DRESSING CHANGES. CONTINUE ZOSYN. Time-Based Coding :: [TOTAL MINUTES] spent with patient and on the chart (including review of chart, obtaining history, exam, reviewing outside data, placing orders, documenting exam and treatment plan, and counseling patient) on [DATE]. PROFEE Wildlife Science Professor Document charge(s): No
[2025-02-07] MEDS: PIPERACILLIN/TAZO 3.375 GM in SODIUM CHLORIDE 0.9% 100 ML IV ×2 (10:31→17:56)
--- NOTE | 2025-02-07 12:03 | PC.NURSE ---
Addendum entered by Gina Rodgers R.N. 02/07/25 16:51: Wet -- dry dsg change done to buttocks and scrotum. Med prior w/ Dilaudid 4mg po and half hr later 0.5mg IVP Pt tolerated fairly well New order for 1.0mg IVP prior to dsg change recieved. SL intact/patent. stood at bed side for a short time Call light w/in reach, pt calls appropriately for needs. Continue w/plan of care. Original Note: Pt med at 0845 for discomfort. Dsg saturated through Dsg changed w/ 4x4 & ABD pads. Pt tolerated fair. SL x 2 intact/patent Call light w/in reach, pt calls appropriately for needs.
--- NOTE | 2025-02-07 12:07 | CM.DPNOTE ---
DCP Continued: Reviewed EMR and team rounds for pt?s medical status. Per hospitalist, patient is post-op day 1 with continued IV abx and wound care. Anticipating not being medically cleared until 02/10, possibly. MELODY spoke with Bessie, Nurse Certified Home Health Aide at [facility]. She reviewed that she would appreciate the Medical Evaluation Treatment/Maximum Medical Improvement Letter and Travel Release form to be sent only when discharge is imminent for most updated pt status. She is requesting this to be sent via fax ([phone]) or email ([email or web address]). MELODY sent most updated clinicals via secure email to [facility] Certified [facility] Health Aide for review [Signed Release of Information at Care Management office]. Plan: Anticipating medical discharge on 02/10 or when medically cleared, pt Employer to coordinate travel arrangements back to [place], [place]. CM Team will continue to follow for coordination of discharge plans. RADHA Borjas
[2025-02-07 14:00] VITALS: O2SAT 96
[2025-02-07] MEDS: HYDROMORPHONE 2 MG TABLET 4 MG PO (15:20)
[2025-02-07] MEDS: HYDROMORPHONE 0.5 MG INJ IV (15:51)
[2025-02-07 18:00] VITALS: O2SAT 98
[2025-02-07 20:11] VITALS: BP 110/64; PULSE 88; RESP 19; TEMP 36.7; O2SAT 100
[2025-02-07] MEDS: HYDROMORPHONE 1 MG INJ IV (20:21)
[2025-02-07] MEDS: SODIUM CHLORIDE 0.9% FLUSH 10 ML IV (20:22)
[2025-02-08] VITALS (7 sets, daily range): BP systolic 104–110; BP diastolic 57–63; PULSE 77–86; RESP 15–21; TEMP 36.5–36.8; O2SAT 98–100
[2025-02-08] MEDS: HYDROMORPHONE 2 MG TABLET PO (00:33)
[2025-02-08] MEDS: PIPERACILLIN/TAZO 3.375 GM in SODIUM CHLORIDE 0.9% 100 ML IV ×3 (02:08→18:01)
[2025-02-08] MEDS: HYDROMORPHONE 0.5 MG INJ IV ×3 (02:10→22:21)
[2025-02-08] MEDS: ENOXAPARIN 40 MG/0.4 ML SYRINGE SUBCUT (08:23)
[2025-02-08] MEDS: SODIUM CHLORIDE 0.9% FLUSH 10 ML IV ×2 (08:23→22:21)
--- NOTE | 2025-02-08 09:13 | PM.PN.IH.1 ---
Subjective Subjective Date Patient Seen: 02/08/25 Time Patient Seen: 09:15 Interval history: Continues to feel well. Tolerant of regular diet. Pain control is adequate. Exam Vital Signs (past 8 hours): - 02/08/25 02:00 02/08/25 02:00 02/08/25 06:00 Temperature 98.3 F Pulse Rate 86 Respiratory Rate 21 Blood Pressure 107/61 Pulse Oximetry 100 100 Oxygen Delivery Method Room Air Room Air Oxygen Flow Rate 0 02/08/25 07:42 Temperature 97.7 F Pulse Rate 77 Respiratory Rate 15 Blood Pressure 104/57 L Pulse Oximetry 99 Oxygen Delivery Method Oxygen Flow Rate 0 Oxygen Delivery Method Room Air Oxygen Flow Rate 0 Narrative Exam Narrative: Lungs are clear to auscultation. Heart has a regular rate and rhythm. Abdomen is soft and nontender. Dressings are in place. They are dry. The wounds appear to be clean on examination. Objective Labs 02/07/25 05:55 02/07/25 05:55 [facility] Medical History Suppurative hidradenitis Social History household members: family Smoking Status: Never smoker alcohol intake: current Assessment & Plan Assessment and plan (1) Hidradenitis suppurativa of anogenital region: Status: Acute Plan Postop day 2 from incision drainage and debridement of perineal and bilateral inguinal hidradenitis suppurativa. Dressing changes and IV antibiotics are ongoing. Both these to be continued. As the patient is from [place], and will be returning there, the logistics of arranging his postoperative home health visits will be complicated. We will defer to social work and discharge planning in this regard. Dressing changes will likely be ongoing for several weeks. Time-Based Coding :: [TOTAL MINUTES] spent with patient and on the chart (including review of chart, obtaining history, exam, reviewing outside data, placing orders, documenting exam and treatment plan, and counseling patient) on [DATE]. 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
[2025-02-08 09:33] LABS: Add Manual Diff / Slide Review NO; Basophils Absolute Auto 100 /uL (0-100); Basophils Percent Auto 0.9 % (0-2); Eosinophils Absolute Auto 100 /uL (0-450); Eosinophils Percent Auto 1.4 % (2-4); Hematocrit 34.2 % (41-53); Hemoglobin 11.6 g/dL (13.5-17.5); Lymphocytes Absolute Auto 1400 /uL (1100-4500); Lymphocytes Percent Auto 15.7 % (25-40); Mean Corpuscular Hemoglobin 31.5 PG (26-34); Mean Corpuscular Volume 92.6 fL (80-100); Monocytes Absolute Auto 400 /uL (0-900); Monocytes Percent Auto 4.1 % (3-14); Neutrophils Absolute Auto 7000 /uL (1500-7000); Neutrophils Percent Auto 77.9 % (50-75); Platelet Count 453 X10^3/uL (150-400); Red Blood Cell Count 3.69 X10^6/uL (4.5-5.9); Red Cell Distribution Width 12.8 % (11.6-14.8)
[2025-02-08 09:41] LABS: BUN Creatinine Ratio 6.1 (6-22); Blood Urea Nitrogen 8 mg/dL (9-20); Carbon Dioxide 26 mmol/L (22-32); Chloride 101 mmol/L (98-107); Estimated Glomerular Filt Rate > 60 mL/min (>60); Glucose 166 mg/dL (70-99); HEMOLYSIS < 15 (0-50); Sodium 135 mmol/L (137-145)
[2025-02-08] MEDS: HYDROMORPHONE 1 MG INJ IV ×2 (14:36→18:02)
--- NOTE | 2025-02-08 16:05 | PC.NURSE ---
Addendum entered by Gena Frey R.N. 02/08/25 18:37: Provided second dressing change d/t contamination with stool after patient had BM. (Pt ambulated with FWW safely to bathroom and back.) Removed gauze and ABD pads premedicated with 1mg IVP hydromorphone, and replaced gauze + ABDs + paper tape. Pt states pain has gone down from 5/10 to 1/10. Pt states all needs met. Pt resting comfortably, call light within reach, bed low/locked, plan of care continues. Original Note: Premedicated pt with 1mg IVP hydromorphone; waited 35 minutes. Pt states pain is 1/10, but feels spicy/burning with movement. Removed ABD pads and gauze; repacked wounds with wet to dry dressing (gauze and ABD pads) as per MD orders. Retaped using paper tape, as pt states plastic tape is irritating to skin. Pt states pain is 3/10, but jumps with movement. Replaced pt hospital undies with new ones and replaced chucks pad. Pt currently resting comfortably, call light within reach, bed low/locked, plan of care continues.
--- NOTE | 2025-02-08 16:08 | P.PN_ITS ---
Subjective Subjective Date Patient Seen: 02/08/25 Interval history: Chief complaint: Anal cleft and groin pain secondary to hidradenitis suppurativa and cellulitis History of present illness: 02/05/25:34 y/o with PMH of hydradenitis suppurativa on current maintenance therapy with rifampin, clindamycin and prednisone, came to ED with swelling and pain in groin and multiple draining boils on left buttock and groin. Mild leukocytosis. Has significant tenderness and pain preventing him to work. 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 Discussed with surgery for I&D upon admission to medicine for IV abx and pain control.. CT of the abdomen pelvis: PELVIS: Pelvic Organs: Normal size prostate gland. Bladder: No bladder wall thickening, accounting for underdistention. Pelvic Nodes: Borderline left common iliac/pelvic sidewall node measuring 9 mm. Bulky left inguinal node measuring at least 1.5 cm short axis. Miscellaneous: Diffuse skin thickening over the left medial buttock from the superior gluteal cleft, inferior to the level of the thigh. At the inferior-most aspect, within the thickened skin, there is of small, ill-defined area measuring by 1.3 cm of decreased density which may be small phlegmon. There are also scattered foci of gas within the thickened skin. Skin thickening extends anteriorly to the perineal body and also involves the inferomedial right gluteal region. No other areas fluid or definite foci of gas. Bones: No aggressive osseous abnormality. IMPRESSION: Findings of cellulitis along the gluteal and perineal regions with a few foci of gas within the skin. Very small possible phlegmon in the left gluteal region. 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 Scattered reactive adenopathy in the left pelvis. Hospital course: 02/06: Patient underwent surgical debridement: Started on vancomycin and ceftriaxone in the emergency department Operative Notes Findings: Hidradenitis suppurativa with multiple serpiginous sub dermal sinus tracts. Closure Type: non-primary Specimen(s): other (Wound culture) ?...The perineum and groins were prepped and draped in the usual sterile manner. Attention was directed to the right groin where a 1 x 2 cm abscess was incised and drained. This was packed open. There was no tracking. Attention was directed to the right medial thigh in a series of drainage sites were interconnected. These were traced with hemostats and lacrimal probes. The tracts were all unroofed sharply with the electrocautery and were packed open. This resulted in an X shape wound whose legs were 6 cm in length. Attention was directed to the left medial thigh. Another series of drainage sites were tract and the tract unroofed. This resulted in a wound of 5 cm length by 1 cm. A small abscess of the right scrotal base was incised and this was of 1 cm length. Attention was directed to the left buttock where another series of drainage sites were probed with hemostats and lacrimal probes. These were all unroofed and this traced up the left side of the gluteal cleft from a point overlying the ipsilateral ischial spine a distance of about 15 cm. All sinus tracts were bluntly debrided and hemostasis was obtained with direct pressure. Tracts were traced back to the point where dermis was firmly fixed to underlying tissues and completely unroofed. Dressings were applied. The patient tolerated the procedure well and was transported to the recovery room in stable condition. Complications: none... 02/07: Pain satisfactory controlled postoperatively no fevers or chills overnight white count 49621 a 83% neutrophils 02/08: Pain medication increased during dressing changes due to pain white count as de-escalated to 9000 Review of systems: No fevers or chills overnight No nausea or vomiting Good appetite No chest pains shortness of breath Physical exam: No acute distress No labored respirations No extremity edema Preliminary wound culture: Gram Stain Final 02/06/25-1757 White blood cells Moderate WBCs Gram Positive Cocci 4+ Gram Positive Rods 3+ Gram Negative Rods 1+ Aerobic Culture for wounds Pending Anaerobic Culture Pending Assessment and plan: Hydradenitis Suppurativa of groin / Cellulitis status post surgical debridement 02/06 * IV Rocephin and vancomycin on admission, changed to Zosyn per surgery stewardship * Monitor CBC tomorrow * Dressings per surgery orders Code: Full, discussed with patient. 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 * Arrangements for outpatient treatment and transition we will require creativity through case management Time-Based Coding :: 35 minutes spent with patient and on the chart (including review of chart, obtaining history, exam, reviewing outside data, placing orders, documenting exam and treatment plan, and counseling patient) Exam Vital Signs (past 8 hours): - 02/08/25 10:00 02/08/25 14:00 Pulse Oximetry 99 99 Oxygen Delivery Method Room Air Room Air Oxygen Flow Rate 0 0 Oxygen Delivery Method Room Air Oxygen Flow Rate 0 Objective Labs 02/08/25 09:08 02/08/25 09:08 Labs: Laboratory Results - last 24 hr 02/08/25 09:08 WBC 9.0 RBC 3.69 L Hgb 11.6 L Hct 34.2 L MCV 92.6 MCH 31.5 MCHC 34.0 RDW 12.8 Plt Count 453 H Neut % (Auto) 77.9 H Lymph % (Auto) 15.7 L [place] % (Auto) 4.1 Eos % (Auto) 1.4 L Baso % (Auto) 0.9 Neut # (Auto) 7000 Lymph # (Auto) 1400 [place] # (Auto) 400 Eos # (Auto) 100 Baso # (Auto) 100 Sodium 135 L Potassium 4.0 Chloride 101 Carbon Dioxide 26 BUN 8 L Creatinine 1.31 H Estimated GFR > 60 BUN/Creatinine Ratio 6.1 Glucose 166 H Calcium 9.0 PFSH Medical History Suppurative hidradenitis Social History household members: family Smoking Status: Never smoker alcohol intake: current Assessment & Plan Time-Based Coding :: [TOTAL MINUTES] spent with patient and on the chart (including review of chart, obtaining history, exam, reviewing outside data, placing orders, documenting exam and treatment plan, and counseling patient) on [DATE].
[2025-02-09] MEDS: HYDROMORPHONE 0.5 MG INJ IV (01:47)
[2025-02-09] MEDS: PIPERACILLIN/TAZO 3.375 GM in SODIUM CHLORIDE 0.9% 100 ML IV ×3 (01:47→18:18)
[2025-02-09 02:00] VITALS: O2SAT 99
[2025-02-09] MEDS: HYDROMORPHONE 1 MG INJ IV ×4 (04:02→22:09)
[2025-02-09 06:00] VITALS: O2SAT 99
[2025-02-09 08:00] VITALS: BP 93/59; PULSE 72; RESP 14; TEMP 36.3; O2SAT 100
--- NOTE | 2025-02-09 08:27 | P.PN_ITS ---
Subjective Subjective Date Patient Seen: 02/09/25 Time Patient Seen: 08:30 Interval history: Feels well. Pain control adequate. Tolerant of regular diet. Exam Vital Signs (past 8 hours): - 02/09/25 02:00 02/09/25 06:00 02/09/25 08:00 Temperature 97.3 F L Pulse Rate 72 Respiratory Rate 14 Blood Pressure 93/59 L Pulse Oximetry 99 99 100 Oxygen Delivery Method Room Air Room Air Oxygen Flow Rate 0 Oxygen Delivery Method Room Air Oxygen Flow Rate 0 Narrative Exam Narrative: Lungs are clear to auscultation. Heart has a regular rate and rhythm with no murmur or gallop. Abdomen is soft and nontender. Lungs are clean and dressed. Objective Labs 02/08/25 09:08 02/08/25 09:08 Labs: Laboratory Results - last 24 hr 02/08/25 09:08 WBC 9.0 RBC 3.69 L Hgb 11.6 L Hct 34.2 L MCV 92.6 MCH 31.5 MCHC 34.0 RDW 12.8 Plt Count 453 H Neut % (Auto) 77.9 H Lymph % (Auto) 15.7 L [place] % (Auto) 4.1 Eos % (Auto) 1.4 L Baso % (Auto) 0.9 Neut # (Auto) 7000 Lymph # (Auto) 1400 [place] # (Auto) 400 Eos # (Auto) 100 Baso # (Auto) 100 Sodium 135 L Potassium 4.0 Chloride 101 Carbon Dioxide 26 BUN 8 L Creatinine 1.31 H Estimated GFR > 60 BUN/Creatinine Ratio 6.1 Glucose 166 H Calcium 9.0 PFSH Medical History Suppurative hidradenitis Social History household members: family Smoking Status: Never smoker alcohol intake: current Assessment & Plan Assessment and plan (1) Hidradenitis suppurativa of anogenital region: Status: Acute (2) Abscess of skin or subcutaneous tissue: Qualifiers: Site of cutaneous abscess: buttock Qualified Code(s): L02.31 - Cutaneous abscess of buttock Status: Acute Plan Doing well status post incision and drainage/debridement of hidradenitis flare. Continue IV antibiotics and dressing changes. Time-Based Coding :: [TOTAL MINUTES] spent with patient and on the chart (including review of chart, obtaining history, exam, reviewing outside data, placing orders, documenting exam and treatment plan, and counseling patient) on [DATE]. 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
[2025-02-09] MEDS: SODIUM CHLORIDE 0.9% FLUSH 10 ML IV ×3 (08:37→22:14)
[2025-02-09] MEDS: ENOXAPARIN 40 MG/0.4 ML SYRINGE SUBCUT (08:37)
[2025-02-09] MEDS: HYDROMORPHONE 2 MG TABLET 4 MG PO (08:46)
[2025-02-09 09:00] LABS: Add Manual Diff / Slide Review NO; Basophils Absolute Auto 100 /uL (0-100); Basophils Percent Auto 0.9 % (0-2); Eosinophils Absolute Auto 200 /uL (0-450); Eosinophils Percent Auto 2.8 % (2-4); Hematocrit 34.9 % (41-53); Hemoglobin 11.9 g/dL (13.5-17.5); Lymphocytes Absolute Auto 2100 /uL (1100-4500); Lymphocytes Percent Auto 24.1 % (25-40); Mean Corpuscular HGB Conc 34.3 % (30-36); Mean Corpuscular Hemoglobin 31.5 PG (26-34); Mean Corpuscular Volume 91.9 fL (80-100); Monocytes Absolute Auto 400 /uL (0-900); Monocytes Percent Auto 4.5 % (3-14); Neutrophils Absolute Auto 5900 /uL (1500-7000); Neutrophils Percent Auto 67.7 % (50-75); Platelet Count 491 X10^3/uL (150-400); Red Cell Distribution Width 12.7 % (11.6-14.8); White Blood Cell Count 8.6 X10^3/uL (4.5-11.0)
[2025-02-09 09:11] LABS: Blood Urea Nitrogen 11 mg/dL (9-20); Calcium 9.1 mg/dL (8.4-10.2); Carbon Dioxide 26 mmol/L (22-32); Chloride 102 mmol/L (98-107); Estimated Glomerular Filt Rate > 60 mL/min (>60); Glucose 117 mg/dL (70-99); HEMOLYSIS < 15 (0-50); Potassium 4.1 mmol/L (3.4-5.1); Sodium 136 mmol/L (137-145)
--- NOTE | 2025-02-09 09:19 | P.PN_ITS ---
Subjective Subjective Date Patient Seen: 02/09/25 Interval history: Chief complaint: Anal cleft and groin pain secondary to hidradenitis suppurativa and cellulitis wound culture positive for Pseudomonas also minor involvement of bilateral axilla History of present illness: 02/05/25:34 y/o with PMH of hydradenitis suppurativa on current maintenance therapy with rifampin, clindamycin and prednisone, came to ED with swelling and pain in groin and multiple draining boils on left buttock and groin. Mild leukocytosis. Has significant tenderness and pain preventing him to work. 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 Discussed with surgery for I&D upon admission to medicine for IV abx and pain control.. CT of the abdomen pelvis: PELVIS: Pelvic Organs: Normal size prostate gland. Bladder: No bladder wall thickening, accounting for underdistention. Pelvic Nodes: Borderline left common iliac/pelvic sidewall node measuring 9 mm. Bulky left inguinal node measuring at least 1.5 cm short axis. Miscellaneous: Diffuse skin thickening over the left medial buttock from the superior gluteal cleft, inferior to the level of the thigh. At the inferior-most aspect, within the thickened skin, there is of small, ill-defined area measuring by 1.3 cm of decreased density which may be small phlegmon. There are also scattered foci of gas within the thickened skin. Skin thickening extends anteriorly to the perineal body and also involves the inferomedial right gluteal region. No other areas fluid or definite foci of gas. Bones: No aggressive osseous abnormality. IMPRESSION: Findings of cellulitis along the gluteal and perineal regions with a few foci of gas within the skin. Very small possible phlegmon in the left gluteal region. 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 Scattered reactive adenopathy in the left pelvis. Hospital course: 02/06: Patient underwent surgical debridement: Started on vancomycin and ceftriaxone in the emergency department Operative Notes Findings: Hidradenitis suppurativa with multiple serpiginous sub dermal sinus tracts. Closure Type: non-primary Specimen(s): other (Wound culture) ?...The perineum and groins were prepped and draped in the usual sterile manner. Attention was directed to the right groin where a 1 x 2 cm abscess was incised and drained. This was packed open. There was no tracking. Attention was directed to the right medial thigh in a series of drainage sites were interconnected. These were traced with hemostats and lacrimal probes. The tracts were all unroofed sharply with the electrocautery and were packed open. This resulted in an X shape wound whose legs were 6 cm in length. Attention was directed to the left medial thigh. Another series of drainage sites were tract and the tract unroofed. This resulted in a wound of 5 cm length by 1 cm. A small abscess of the right scrotal base was incised and this was of 1 cm length. Attention was directed to the left buttock where another series of drainage sites were probed with hemostats and lacrimal probes. These were all unroofed and this traced up the left side of the gluteal cleft from a point overlying the ipsilateral ischial spine a distance of about 15 cm. All sinus tracts were bluntly debrided and hemostasis was obtained with direct pressure. Tracts were traced back to the point where dermis was firmly fixed to underlying tissues and completely unroofed. Dressings were applied. The patient tolerated the procedure well and was transported to the recovery room in stable condition. Complications: none... 02/07: Pain satisfactory controlled postoperatively no fevers or chills overnight white count 21630 a 83% neutrophils 02/08: Pain medication increased during dressing changes due to pain white count as de-escalated to 9000 02/09: Subjectively pain is less still requires pain medication from time to time no sweats or chills or fevers overnight white blood cell count de-escalated to 8.6 with 68% neutrophils. Wound culture positive for Pseudomonas Intravenous antibiotics Zosyn and dressing changes are being continued under the stewardship of surgery service Review of systems: No fevers or chills overnight No nausea or vomiting Good appetite No chest pains shortness of breath Physical exam: No acute distress No labored respirations No extremity edema Preliminary wound culture: Gram Stain Final 02/06/25-1757 White blood cells Moderate WBCs Gram Positive Cocci 4+ Gram Positive Rods 3+ Gram Negative Rods 1+ 1. Pseudomonas aeruginosa M.I.C. RX --------- --- * Cefepime 2 S * Ceftazidime 2 S * Ciprofloxacin 0.5 S * Levofloxacin 0.5 S * Meropenem 0.5 S * Piperacillin/Tazobactam 8 S Assessment and plan: Hydradenitis Suppurativa of groin / Cellulitis with culture positive of Pseudomonas status post surgical debridement 02/06 * IV Rocephin and vancomycin on admission, changed to Zosyn per surgery stewardship but may consider switching to meropenem or Cipro at discretion of surgery * Monitor CBC tomorrow * Dressings per surgery orders Code: Full, discussed with patient. 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 * Arrangements for outpatient treatment and transition we will require creativity through case management Time-Based Coding :: 35 minutes spent with patient and on the chart (including review of chart, obtaining history, exam, reviewing outside data, placing orders, documenting exam and treatment plan, and counseling patient) Exam Vital Signs (past 8 hours): - 02/09/25 02:00 02/09/25 06:00 02/09/25 08:00 Temperature 97.3 F L Pulse Rate 72 Respiratory Rate 14 Blood Pressure 93/59 L Pulse Oximetry 99 99 100 Oxygen Delivery Method Room Air Room Air Oxygen Flow Rate 0 Oxygen Delivery Method Room Air Oxygen Flow Rate 0 Objective Labs 02/09/25 08:42 02/08/25 09:08 Labs: Laboratory Results - last 24 hr 02/08/25 02/09/25 09:08 08:42 WBC 9.0 8.6 RBC 3.69 L 3.80 L Hgb 11.6 L 11.9 L Hct 34.2 L 34.9 L MCV 92.6 91.9 MCH 31.5 31.5 MCHC 34.0 34.3 RDW 12.8 12.7 Plt Count 453 H 491 H Neut % (Auto) 77.9 H 67.7 Lymph % (Auto) 15.7 L 24.1 L [place] % (Auto) 4.1 4.5 Eos % (Auto) 1.4 L 2.8 Baso % (Auto) 0.9 0.9 Neut # (Auto) 7000 5900 Lymph # (Auto) 1400 2100 [place] # (Auto) 400 400 Eos # (Auto) 100 200 Baso # (Auto) 100 100 Sodium 135 L Potassium 4.0 Chloride 101 Carbon Dioxide 26 BUN 8 L Creatinine 1.31 H Estimated GFR > 60 BUN/Creatinine Ratio 6.1 Glucose 166 H Calcium 9.0 PFSH Medical History Suppurative hidradenitis Social History household members: family Smoking Status: Never smoker alcohol intake: current Assessment & Plan Time-Based Coding :: [TOTAL MINUTES] spent with patient and on the chart (including review of chart, obtaining history, exam, reviewing outside data, placing orders, documenting exam and treatment plan, and counseling patient) on [DATE].
[2025-02-09 10:00] VITALS: O2SAT 99
--- NOTE | 2025-02-09 10:44 | CM.DPC ---
DCP Cont: Per MD, results returned from cultures showing pseudomonas+ and Surgeon to help determine final abx and PO vs IV at discharge. May need to wait for further healing before pt can safely discharge and fly on a plane due to his open wounds, anticipated discharge date still to be determined. SIMONE spoke to pt's Bessie Laura, Medical Nurse CM with [employer], and updated her on pt status and she is aware that transport might be difficult with his wounds on his buttocks. SIMONE secure emailed Bessie at [email or web address] the requested updated Surgeon and Hospitalist prog notes from yesterday and today along with op note, consult note, and culture results to review. Pt's travel/work forms still needed to be completed by Hospitalist or Surgeon closer to discharge and sent to Bessie for coordination of transport back to [facility]. MATHEUS Flaherty
[2025-02-09 14:00] VITALS: O2SAT 99
--- NOTE | 2025-02-09 15:32 | PC.NURSE ---
Pt resting at intervals T/O day. Med at 0850 w/ 4mg po Dilaudid w/ good relief. Taking po w/o nausea. Some drainage noted on dsgs Med w/ 1.0 mg IVP Dilaudid prior to dsg change w/ good relief Dsg done w/wet-dry gauze and ABD's Tolerared fair. Call light w/in reach, pt calls appropriately for needs. Continue w/plan of care.
--- NOTE | 2025-02-09 17:46 | PC.NURSE ---
wound care pt up to bathroom for BM. previous dressing need to be removed for bowel movement. post BM pericare provided and wounds irrigated with saline. New wet saline gauze dressings applied per wet to dry instructions with abdominal pads taped over top to help secure dressings. Mesh underware overtop to help hold things in place. pt with increase in pain with wound care. medicated, reference EMAR.
[2025-02-09 20:45] VITALS: BP 116/69; PULSE 82; RESP 16; TEMP 36.2; O2SAT 100
[2025-02-10] MEDS: HYDROMORPHONE 0.5 MG INJ IV ×2 (00:38→22:51)
[2025-02-10] MEDS: PIPERACILLIN/TAZO 3.375 GM in SODIUM CHLORIDE 0.9% 100 ML IV (01:53)
[2025-02-10] MEDS: HYDROMORPHONE 1 MG INJ IV ×3 (01:54→15:11)
--- NOTE | 2025-02-10 05:20 | PC.NURSE ---
Addendum entered by Dona Gasca R.N. 02/10/25 06:41: Pt was encourage to turn in bed every 2 hours. Pt states, I am having a hard time getting comfortable when you guys turn me in bed so I am turning a bit at a time. Pt educated on PI prevention. Addendum entered by Dona Gasca R.N. 02/10/25 06:28: Pt premedicated with po dilaudid 4 mg and ivp 1 mg prior to wound assessement, At the time pt declined to have dressing change due to pain. Dressing to buttocks are intact and with minimal drainage noted. Original Note: Pt states he is having a hard time controlling his pain tonight, he is requesting IVP medications only due to increase pain level.
[2025-02-10] MEDS: HYDROMORPHONE 2 MG TABLET 4 MG PO ×2 (05:24→18:35)
[2025-02-10 06:00] VITALS: O2SAT 99
[2025-02-10] MEDS: SODIUM CHLORIDE 0.9% FLUSH 10 ML IV ×3 (06:07→22:10)
[2025-02-10 08:00] VITALS: BP 110/74; PULSE 76; RESP 14; TEMP 36; O2SAT 100
[2025-02-10 08:36] LABS: Add Manual Diff / Slide Review NO; Basophils Absolute Auto 100 /uL (0-100); Basophils Percent Auto 1.2 % (0-2); Eosinophils Absolute Auto 300 /uL (0-450); Eosinophils Percent Auto 3.3 % (2-4); Hematocrit 35.7 % (41-53); Lymphocytes Absolute Auto 2200 /uL (1100-4500); Lymphocytes Percent Auto 27.3 % (25-40); Mean Corpuscular HGB Conc 33.6 % (30-36); Mean Corpuscular Hemoglobin 31.2 PG (26-34); Mean Corpuscular Volume 92.8 fL (80-100); Monocytes Absolute Auto 500 /uL (0-900); Monocytes Percent Auto 6.1 % (3-14); Neutrophils Absolute Auto 5000 /uL (1500-7000); Neutrophils Percent Auto 62.1 % (50-75); Platelet Count 508 X10^3/uL (150-400); Red Blood Cell Count 3.85 X10^6/uL (4.5-5.9); Red Cell Distribution Width 12.9 % (11.6-14.8); White Blood Cell Count 8.1 X10^3/uL (4.5-11.0)
[2025-02-10] MEDS: ENOXAPARIN 40 MG/0.4 ML SYRINGE SUBCUT (10:00)
--- NOTE | 2025-02-10 10:18 | DIET.CONS ---
Dietary Consultation Note Admission Date: 02/05/2025 23:53 Assessment: 34 y M admitted for Hydradenitis Suppurativa. Dietitian screened for LOS. Recent recorded PO intakes 75-100%. DFM reviewed for meal composition. Normal BMI for age. No nutritional interventions needed at this time. Will continue to monitor PO intakes. Ht: 182.88 cm Wt: 70 kg BMI: 20.9 UBW: no wt hx Last BM: 02/09/25 (02/09/25 17:44) MNA: 12 Elias Score: 19 Diet: 02/06/25 Dinner General (Regular) Diet Diet Modifications: Food Texture: Level 7 - Regular Liquid Consistency: Level 0 - Thin Nutrition Percent Meal Consumed 75% 02/09/25 17:44 Percent Meal Consumed 75% 02/09/25 09:53 Percent Meal Consumed 100% 02/08/25 18:40 Percent Meal Consumed 75% 02/08/25 12:56 Labs: RBC 3.85 X10^6/uL (4.5-5.9) L 02/10/25 08:21 Hgb 12.0 g/dL (13.5-17.5) L 02/10/25 08:21 Hct 35.7 % (41-53) L 02/10/25 08:21 Creatinine 1.22 mg/dL (0.66-1.25) 02/09/25 08:42 Lactate 1.0 mmol/L (0.7-2.1) 02/05/25 20:15 Electronically Signed by: Ciara Irby 02/10/25 10:18 Clinical Dietitian [address] [id number]
[2025-02-10] MEDS: MEROPENEM 2 GM in SODIUM CHLORIDE 0.9% 100 ML IV ×2 (11:12→22:04)
--- NOTE | 2025-02-10 14:32 | P.PN_ITS ---
Subjective Subjective Date Patient Seen: 02/10/25 Time Patient Seen: 14:32 Interval history: Lito is having daily wet-to-dry dressing changes. No other changes to his status. Exam Vital Signs (past 8 hours): - 02/10/25 08:00 Temperature 96.8 F L Pulse Rate 76 Respiratory Rate 14 Blood Pressure 110/74 Pulse Oximetry 100 Oxygen Flow Rate 0 Oxygen Delivery Method Room Air Oxygen Flow Rate 0 Narrative Exam Narrative: Wounds are open and clean Objective Labs 02/10/25 08:21 02/09/25 08:42 Labs: Laboratory Results - last 24 hr 02/10/25 08:21 WBC 8.1 RBC 3.85 L Hgb 12.0 L Hct 35.7 L MCV 92.8 MCH 31.2 MCHC 33.6 RDW 12.9 Plt Count 508 H Neut % (Auto) 62.1 Lymph % (Auto) 27.3 [place] % (Auto) 6.1 Eos % (Auto) 3.3 Baso % (Auto) 1.2 Neut # (Auto) 5000 Lymph # (Auto) 2200 [place] # (Auto) 500 Eos # (Auto) 300 Baso # (Auto) 100 PFSH Medical History Suppurative hidradenitis Social History household members: family Smoking Status: Never smoker alcohol intake: current Assessment & Plan Post-op Postoperative Procedures: Procedures Operation Date: 02/06/25 15:30 Actual Procedure Side Surgeon p Incision and Drainage, Bilateral groin and left buttocks Bilateral Anton Samuel MD Postoperative status narrative: Continue with local wound care until he is able to fly home
--- NOTE | 2025-02-10 14:59 | P.PN_ITS ---
Subjective Subjective Date Patient Seen: 02/10/25 Interval history: Chief complaint: Anal cleft and groin pain secondary to hidradenitis suppurativa and cellulitis wound culture positive for Pseudomonas also minor involvement of bilateral axilla History of present illness: 02/05/25:34 y/o with PMH of hydradenitis suppurativa on current maintenance therapy with rifampin, clindamycin and prednisone, came to ED with swelling and pain in groin and multiple draining boils on left buttock and groin. Mild leukocytosis. Has significant tenderness and pain preventing him to work. 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 Discussed with surgery for I&D upon admission to medicine for IV abx and pain control.. CT of the abdomen pelvis: PELVIS: Pelvic Organs: Normal size prostate gland. Bladder: No bladder wall thickening, accounting for underdistention. Pelvic Nodes: Borderline left common iliac/pelvic sidewall node measuring 9 mm. Bulky left inguinal node measuring at least 1.5 cm short axis. Miscellaneous: Diffuse skin thickening over the left medial buttock from the superior gluteal cleft, inferior to the level of the thigh. At the inferior-most aspect, within the thickened skin, there is of small, ill-defined area measuring by 1.3 cm of decreased density which may be small phlegmon. There are also scattered foci of gas within the thickened skin. Skin thickening extends anteriorly to the perineal body and also involves the inferomedial right gluteal region. No other areas fluid or definite foci of gas. Bones: No aggressive osseous abnormality. IMPRESSION: Findings of cellulitis along the gluteal and perineal regions with a few foci of gas within the skin. Very small possible phlegmon in the left gluteal region. 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 Scattered reactive adenopathy in the left pelvis. Hospital course: 02/06: Patient underwent surgical debridement: Started on vancomycin and ceftriaxone in the emergency department Operative Notes Findings: Hidradenitis suppurativa with multiple serpiginous sub dermal sinus tracts. Closure Type: non-primary Specimen(s): other (Wound culture) ?...The perineum and groins were prepped and draped in the usual sterile manner. Attention was directed to the right groin where a 1 x 2 cm abscess was incised and drained. This was packed open. There was no tracking. Attention was directed to the right medial thigh in a series of drainage sites were interconnected. These were traced with hemostats and lacrimal probes. The tracts were all unroofed sharply with the electrocautery and were packed open. This resulted in an X shape wound whose legs were 6 cm in length. Attention was directed to the left medial thigh. Another series of drainage sites were tract and the tract unroofed. This resulted in a wound of 5 cm length by 1 cm. A small abscess of the right scrotal base was incised and this was of 1 cm length. Attention was directed to the left buttock where another series of drainage sites were probed with hemostats and lacrimal probes. These were all unroofed and this traced up the left side of the gluteal cleft from a point overlying the ipsilateral ischial spine a distance of about 15 cm. All sinus tracts were bluntly debrided and hemostasis was obtained with direct pressure. Tracts were traced back to the point where dermis was firmly fixed to underlying tissues and completely unroofed. Dressings were applied. The patient tolerated the procedure well and was transported to the recovery room in stable condition. Complications: none... 02/07: Pain satisfactory controlled postoperatively no fevers or chills overnight white count 85094 a 83% neutrophils 02/08: Pain medication increased during dressing changes due to pain white count as de-escalated to 9000 02/09: Subjectively pain is less still requires pain medication from time to time no sweats or chills or fevers overnight white blood cell count de-escalated to 8.6 with 68% neutrophils. Wound culture positive for Pseudomonas Intravenous antibiotics Zosyn and dressing changes are being continued under the stewardship of surgery service for consensus decision patient was adjusted to meropenem 2 g IV q.12 hours for 7 days 02/10: Patient is improved today less pain no fevers or chills Review of systems: No fevers or chills overnight No nausea or vomiting Good appetite No chest pains shortness of breath Physical exam: No acute distress No labored respirations No extremity edema Preliminary wound culture: Gram Stain Final 02/06/25-1757 White blood cells Moderate WBCs Gram Positive Cocci 4+ Gram Positive Rods 3+ Gram Negative Rods 1+ 1. Pseudomonas aeruginosa M.I.C. RX --------- --- * Cefepime 2 S * Ceftazidime 2 S * Ciprofloxacin 0.5 S * Levofloxacin 0.5 S * Meropenem 0.5 S * Piperacillin/Tazobactam 8 S Assessment and plan: Hydradenitis Suppurativa of groin / Cellulitis with culture positive of Pseudomonas status post surgical debridement 02/06 * Meropenem 2 g IV q.12 hours for 7 days end date 02/17/2025 possibly outpatient arranged per case management * Dressing changes to be arranged with case management Code: Full, discussed with patient. 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 * Arrangements for outpatient treatment and transition we will require creativity through case management Time-Based Coding :: 35 minutes spent with patient and on the chart (including review of chart, obtaining history, exam, reviewing outside data, placing orders, documenting exam and treatment plan, and counseling patient) Exam Vital Signs (past 8 hours): - 02/10/25 08:00 Temperature 96.8 F L Pulse Rate 76 Respiratory Rate 14 Blood Pressure 110/74 Pulse Oximetry 100 Oxygen Flow Rate 0 Oxygen Delivery Method Room Air Oxygen Flow Rate 0 Objective Labs 02/10/25 08:21 02/09/25 08:42 Labs: Laboratory Results - last 24 hr 02/10/25 08:21 WBC 8.1 RBC 3.85 L Hgb 12.0 L Hct 35.7 L MCV 92.8 MCH 31.2 MCHC 33.6 RDW 12.9 Plt Count 508 H Neut % (Auto) 62.1 Lymph % (Auto) 27.3 [place] % (Auto) 6.1 Eos % (Auto) 3.3 Baso % (Auto) 1.2 Neut # (Auto) 5000 Lymph # (Auto) 2200 [place] # (Auto) 500 Eos # (Auto) 300 Baso # (Auto) 100 PFSH Medical History Suppurative hidradenitis Social History household members: family Smoking Status: Never smoker alcohol intake: current Assessment & Plan Time-Based Coding :: [TOTAL MINUTES] spent with patient and on the chart (including review of chart, obtaining history, exam, reviewing outside data, placing orders, documenting exam and treatment plan, and counseling patient) on [DATE].
--- NOTE | 2025-02-10 15:25 | CM.DPC ---
DCP Cont: Per MD, determined pt will need 7 days IV Meropenem Q12 as cultures returned and starting today. Per RN, pt's dressing changes still 2x a day and multiple wounds on his back side that pt cannot complete himself and if he has a bm will need additional assist with dressing changes. Pt has not been able to sit in a chair or in the bed and has been off loading due to pain and discomfort and cannot imagine pt being able to safely traveling via plane yet. PICC orders placed today and waiting for PICC placement. SIMONE spoke to pt bedside and he confirms he cannot see his wounds but had RN and Surgeon take a picture so he could see. He confirms dressing changes have been less painful and pain seems somewhat better managed. Pt does not feel he could safely travel back to [place] at this time and has concerns that he has been dealing with his wounds for months if not years and really wants the best healing to reduce his risk of readmit or further I&D. Discussed option of eventual d/c to local hotel with [facility]BERT RN for wound care 3x week and outpt Wound Clinic once pt needing less than once daily dressing changes. SIMONE spoke to pt's [employer] [facility] [place] [phone] again and faxed script for Meropenem and F2F and [facility] order to review and then discussed pt's current medical needs and unlikely he can d/c by tomorrow for flight home or to hotel due to his pain and dressing change needs. Bessie confirms that they would pay for hotel if needed and IV abx or SNF if needed. Will follow closely for safe d/c plan and Bessie would be the one to approve outpt services needed. SIMONE made initial referral to [facility] to review in case he can d/c on IV Meropenum Q12 but they would need to coordinate payment through Bessie. SIMONE made initial referral to [facility] to review to determine if they could accept pt's insurance through Bessie at [employer]. F2F and HH orders done but not sent yet. Wound Consult orders placed towards more assist with wound care recommendations and in case pt needs outpt wound care at [facility]. MATHEUS Flaherty
--- NOTE | 2025-02-10 16:56 | PM.CN ---
History of Present Illness Consult details Date Patient Seen: 02/10/25 Time Patient Seen: 16:00 Chief complaint: swelling and pain in groin Narrative: The patient is a 34-year-old male with long-standing history of hidradenitis suppurativa that has been managed with clindamycin, rifampin, and prednisone. He was admitted to the hospital with an acute flare up and underwent extensive I&D of the left buttock, groin, and thighs. He is currently receiving saline wet to wet dressing changes covered with ABD pads and secured with mesh underwear. The patient reports that his pain has been improving but he is still unable to sit. He has had significant serosanguineous drainage. The patient remains on IV antibiotic therapy. The patient is planning to travel back to home in [place] [facility] after discharge. Meds Home Medications and Allergies Home Medications ?Medication ?Instructions ?Recorded ?Confirmed ?Type hydromorphone 2 mg tablet 2 mg PO Q4HR PRN Pain, Moderate 02/10/25 Rx (4-6) #20 tabs meropenem 1 gram intravenous 2 gm IV Q12H #14 ea 02/10/25 Rx solution meropenem 2 gram intravenous 2 g IV Q12H 7 days 02/10/25 Rx solution Allergies Allergy/AdvReac Type Severity Reaction Status Date / Time Penicillins Allergy Severe Hives Verified 02/05/25 17:50 Review of Systems Constitutional Comments: No fever or chills Integumentary/Breasts Comments: Long history of hidradenitis Exam Vital Signs (past 8 hours): Oxygen Delivery Method Room Air Oxygen Flow Rate 0 Narrative Exam Narrative: Well-developed well-nourished male who is alert and oriented, no apparent distress Skin Other: Dressings intact, wound photos reviewed Objective Labs 02/10/25 08:21 02/09/25 08:42 Labs: Laboratory Results - last 24 hr 02/10/25 08:21 WBC 8.1 RBC 3.85 L Hgb 12.0 L Hct 35.7 L MCV 92.8 MCH 31.2 MCHC 33.6 RDW 12.9 Plt Count 508 H Neut % (Auto) 62.1 Lymph % (Auto) 27.3 [place] % (Auto) 6.1 Eos % (Auto) 3.3 Baso % (Auto) 1.2 Neut # (Auto) 5000 Lymph # (Auto) 2200 [place] # (Auto) 500 Eos # (Auto) 300 Baso # (Auto) 100 [facility] Medical History Suppurative hidradenitis Social History household members: family Tobacco & Substance Use Smoking Status: Never smoker alcohol intake: current Assessment & Plan Assessment and plan (1) Hidradenitis suppurativa of anogenital region: Status: Acute (2) Unspecified open wound of left buttock, initial encounter: Status: Acute Assessment & Plan narrative: The patient with large open wounds following incision and drainage for flare up of hidradenitis suppurativa. Recommend continuing saline wet to wet dressing changes, follow up at wound center after discharge for assistance with dressing changes until he is able to travel. Time-Based Coding :: [40 MINUTES] spent with patient and on the chart (including review of chart, obtaining history, exam, reviewing outside data, placing orders, documenting exam and treatment plan, and counseling patient) on [02/10/25].
--- NOTE | 2025-02-10 20:06 | PC.NURSE ---
Patient requires minimal assistance to bathroom, but using walker to help with discomfort during ambulation. Patient had BM this afternoon and then assisted with bed bath/partial shower as tolerated. Dressings changed today approx [id number]. Old dressings removed, all open wound areas cleansed with sterile saline, then wet to dry gauze with additional gauze and then covered with ABD pads and paper tape. Dressings remain CDI at change of shift, wearing mesh brief to help hold in place. Patient is able to lift his hips and pelvic off bed and turn/shift weight on his own. Patient using cushion and pillows to adjust for his comfort. Call light and urinal within reach, able to call and make his needs know.
[2025-02-10 20:08] VITALS: BP 107/70; PULSE 76; RESP 14; TEMP 36.6; O2SAT 99
--- NOTE | 2025-02-11 00:08 | PC.NURSE ---
Patient is alert and oriented. Breath sounds CTA with RA sat of 99%. HRR. Denied nausea. BT present and reports having had BM on previous shift. Is voiding per urinal and denied dysuria. Is able to turn himself except when having increased pain at which time he requests assistance. When out of bed he is using a walker and provided SBA. Dressings to groins/inner thighs/gluteal cleft intact and are currently CDI. Is declining use of SCDs so reminded to ankle wave when awake. Denied pain at shift change but then having 8/10 later and was medicated with IV Dilaudid with pain decreasing to 3/10 and is currently asleep. Fall risk score is moderate but patient calls appropriately for assistance so bed alarm is not currently in use.
[2025-02-11 06:00] VITALS: O2SAT 97
[2025-02-11 08:48] LABS: Add Manual Diff / Slide Review NO; Basophils Absolute Auto 100 /uL (0-100); Eosinophils Absolute Auto 300 /uL (0-450); Eosinophils Percent Auto 3.3 % (2-4); Hemoglobin 12.2 g/dL (13.5-17.5); Lymphocytes Absolute Auto 2200 /uL (1100-4500); Lymphocytes Percent Auto 29.4 % (25-40); Mean Corpuscular HGB Conc 33.9 % (30-36); Mean Corpuscular Hemoglobin 31.3 PG (26-34); Mean Corpuscular Volume 92.2 fL (80-100); Monocytes Absolute Auto 500 /uL (0-900); Monocytes Percent Auto 6.7 % (3-14); Neutrophils Absolute Auto 4500 /uL (1500-7000); Neutrophils Percent Auto 59.6 % (50-75); Platelet Count 546 X10^3/uL (150-400); Red Blood Cell Count 3.91 X10^6/uL (4.5-5.9); Red Cell Distribution Width 12.7 % (11.6-14.8); White Blood Cell Count 7.6 X10^3/uL (4.5-11.0)
[2025-02-11 09:04] VITALS: BP 104/66; PULSE 71; RESP 16; TEMP 35.9; O2SAT 100
--- NOTE | 2025-02-11 10:31 | DI.RAD.S_ITS ---
PROCEDURE: XR CHEST FOR PICC 1V INDICATIONS: line placement COMPARISON: None. FINDINGS: Left PICC terminates at the level of the mid superior vena cava could be advanced up to 4 cm to to the level of the distal superior vena cava/right atrial junction. No pneumothorax, no pleural effusion no lobar consolidation. Cardiopericardial silhouette and pulmonary vasculature within normal limits. IMPRESSION: Tip of PICC projects to the area of mid superior vena cava as discussed above Dictated by: Brock Jamil M.D. on 02/11/2025 at 12:12 Approved by: Brock Jamil M.D. on 02/11/2025 at 12:15
[2025-02-11] MEDS: ENOXAPARIN 40 MG/0.4 ML SYRINGE SUBCUT (10:54)
[2025-02-11] MEDS: SODIUM CHLORIDE 0.9% FLUSH 10 ML IV ×2 (10:55→22:24)
[2025-02-11] MEDS: MEROPENEM 2 GM in SODIUM CHLORIDE 0.9% 100 ML IV ×2 (10:56→20:50)
--- NOTE | 2025-02-11 12:12 | CM.DPC ---
DCP Cont. Reviewed EMR and team rounds for pt's medical status and updates. 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 Plan is now d/c to [facility] tomorrow, 02/12, between 1-2pm. 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 Cancelled [facility].
[2025-02-11] MEDS: HYDROMORPHONE 1 MG INJ IV (12:41)
[2025-02-11] MEDS: HYDROMORPHONE 0.5 MG INJ IV ×2 (13:45→20:51)
--- NOTE | 2025-02-11 13:51 | PC.RNWOUND ---
Wound Care Nurse Consult Note: Removed dressing, photo documentation and wound measurements with patients nurse Javan. Javan will document photos and measurements. Patient was pre-medicated via IV Dilaudid prior to procedure. Dressings had moderate amount of serosanguenous drainage except for Left buttock which had serosanguenous drainage and some purulent green drainage, moderate amount. Wound beds pink/red granulation tissue. Dressing: Moist Normal saline on gauze then covered with gauze or abd and secure hypafix. Netting underware. Will recommend to Dr. Camarillo using Lidocaine topically before wound cleaning and new dressing. Recommend using Aquacel or adding hydrogel to normal saline guaze and cover with a border foam dressing.
--- NOTE | 2025-02-11 14:49 | PC.WOUNDPHOT ---
Addendum entered by Javan Cotton R.N. 02/11/25 19:50: Update with measurements (program crashed while uploading photos). (1) Left thigh 2.2 cm X 2.8 cm X 1 cm with undermining at 3 oclock measuring 0.4cm, pink granulation tissue (2) Left buttocks/gluteal fold 10.3cm x 2.3cm x 1.4cm with flap at 1-6 oclock, undermining 1.5cm (3) right thigh 4.6cm x 6.1cm x 1.1 cm flap at 2-4 oclock 0.5cm, with undermining 9-10 oclock 0.4cm (4) left proximal buttocks, with firm surrounding tissue/scarring 0.4cm x 0.2cm x 0.2cm (5) left inner thigh 4cm x 2.7cm x 0.6 cm see wound nurse Alia's note for dressing changes done today Original Note:
--- NOTE | 2025-02-11 15:12 | PM.PN.1 ---
Subjective Subjective Date Patient Seen: 02/11/25 Interval history: Chief complaint: Anal cleft and groin pain secondary to hidradenitis suppurativa and cellulitis wound culture positive for Pseudomonas also minor involvement of bilateral axilla History of present illness: 02/05/25:34 y/o with PMH of hydradenitis suppurativa on current maintenance therapy with rifampin, clindamycin and prednisone, came to ED with swelling and pain in groin and multiple draining boils on left buttock and groin. Mild leukocytosis. Has significant tenderness and pain preventing him to work. 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 Discussed with surgery for I&D upon admission to medicine for IV abx and pain control.. CT of the abdomen pelvis: PELVIS: Pelvic Organs: Normal size prostate gland. Bladder: No bladder wall thickening, accounting for underdistention. Pelvic Nodes: Borderline left common iliac/pelvic sidewall node measuring 9 mm. Bulky left inguinal node measuring at least 1.5 cm short axis. Miscellaneous: Diffuse skin thickening over the left medial buttock from the superior gluteal cleft, inferior to the level of the thigh. At the inferior-most aspect, within the thickened skin, there is of small, ill-defined area measuring by 1.3 cm of decreased density which may be small phlegmon. There are also scattered foci of gas within the thickened skin. Skin thickening extends anteriorly to the perineal body and also involves the inferomedial right gluteal region. No other areas fluid or definite foci of gas. Bones: No aggressive osseous abnormality. IMPRESSION: Findings of cellulitis along the gluteal and perineal regions with a few foci of gas within the skin. Very small possible phlegmon in the left gluteal region. 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 Scattered reactive adenopathy in the left pelvis. Hospital course: 02/06: Patient underwent surgical debridement: Started on vancomycin and ceftriaxone in the emergency department Operative Notes Findings: Hidradenitis suppurativa with multiple serpiginous sub dermal sinus tracts. Closure Type: non-primary Specimen(s): other (Wound culture) ?...The perineum and groins were prepped and draped in the usual sterile manner. Attention was directed to the right groin where a 1 x 2 cm abscess was incised and drained. This was packed open. There was no tracking. Attention was directed to the right medial thigh in a series of drainage sites were interconnected. These were traced with hemostats and lacrimal probes. The tracts were all unroofed sharply with the electrocautery and were packed open. This resulted in an X shape wound whose legs were 6 cm in length. Attention was directed to the left medial thigh. Another series of drainage sites were tract and the tract unroofed. This resulted in a wound of 5 cm length by 1 cm. A small abscess of the right scrotal base was incised and this was of 1 cm length. Attention was directed to the left buttock where another series of drainage sites were probed with hemostats and lacrimal probes. These were all unroofed and this traced up the left side of the gluteal cleft from a point overlying the ipsilateral ischial spine a distance of about 15 cm. All sinus tracts were bluntly debrided and hemostasis was obtained with direct pressure. Tracts were traced back to the point where dermis was firmly fixed to underlying tissues and completely unroofed. Dressings were applied. The patient tolerated the procedure well and was transported to the recovery room in stable condition. Complications: none... 02/07: Pain satisfactory controlled postoperatively no fevers or chills overnight white count 18501 a 83% neutrophils 02/08: Pain medication increased during dressing changes due to pain white count as de-escalated to 9000 02/09: Subjectively pain is less still requires pain medication from time to time no sweats or chills or fevers overnight white blood cell count de-escalated to 8.6 with 68% neutrophils. Wound culture positive for Pseudomonas Intravenous antibiotics Zosyn and dressing changes are being continued under the stewardship of surgery service for consensus decision patient was adjusted to meropenem 2 g IV q.12 hours for 7 days 02/10: Patient is improved today less pain no fevers or chills 02/11: Wound is healing quite well margins look good on photo documentation seen by wound care: Recommend continuing saline wet to wet dressing changes, follow up at wound center after discharge for assistance with dressing changes until he is able to travel. Review of systems: No fevers or chills overnight No nausea or vomiting Good appetite No chest pains shortness of breath Physical exam: No acute distress No labored respirations No extremity edema Wound culture: 1. Pseudomonas aeruginosa M.I.C. RX --------- --- * Cefepime 2 S * Ceftazidime 2 S * Ciprofloxacin 0.5 S * Levofloxacin 0.5 S * Meropenem 0.5 S * Piperacillin/Tazobactam 8 S Assessment and plan: Hydradenitis Suppurativa of groin / Cellulitis with culture positive of Pseudomonas status post surgical debridement 02/06 Meropenem 2 g IV q.12 hours for 7 days end date 02/17/2025 possibly outpatient arranged per case management Dressing changes to be arranged with case management Wound care Recommends continuing saline wet to wet dressing changes, follow up at wound center after discharge for assistance with dressing changes until he is able to travel. 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 Arrangements for outpatient treatment and transition we will require creativity through case management Time-Based Coding :: 35 minutes spent with patient and on the chart (including review of chart, obtaining history, exam, reviewing outside data, placing orders, documenting exam and treatment plan, and counseling patient) Exam Vital Signs (past 8 hours): - 02/11/25 09:04 Temperature 96.6 F L Pulse Rate 71 Respiratory Rate 16 Blood Pressure 104/66 Pulse Oximetry 100 Oxygen Flow Rate 0 Oxygen Delivery Method Room Air Oxygen Flow Rate 0 Objective Labs 02/11/25 08:27 02/09/25 08:42 Labs: Laboratory Results - last 24 hr 02/11/25 08:27 WBC 7.6 RBC 3.91 L Hgb 12.2 L Hct 36.0 L MCV 92.2 MCH 31.3 MCHC 33.9 RDW 12.7 Plt Count 546 H Neut % (Auto) 59.6 Lymph % (Auto) 29.4 [place] % (Auto) 6.7 Eos % (Auto) 3.3 Baso % (Auto) 1.0 Neut # (Auto) 4500 Lymph # (Auto) 2200 [place] # (Auto) 500 Eos # (Auto) 300 Baso # (Auto) 100 [facility] Medical History Suppurative hidradenitis Social History household members: family Smoking Status: Never smoker alcohol intake: current Assessment & Plan Time-Based Coding :: [TOTAL MINUTES] spent with patient and on the chart (including review of chart, obtaining history, exam, reviewing outside data, placing orders, documenting exam and treatment plan, and counseling patient) on [DATE].
--- NOTE | 2025-02-11 15:28 | PC.WOUNDPHOT ---
Right Anterior groin: 0.8L x 2.2W x 0.4D, see additional photos as documented by Wan
--- NOTE | 2025-02-11 17:08 | PM.PN.IH.1 ---
Subjective Subjective Date Patient Seen: 02/11/25 Time Patient Seen: 17:08 Interval history: Following a discussion with Dr. Camarillo and the patient we have considered the possibility of returning to the OR for potential delayed primary closure over drains. Exam Vital Signs (past 8 hours): Oxygen Delivery Method Room Air Oxygen Flow Rate 0 Narrative Exam Narrative: The largest wound is in the left posterior gluteal region running superiorly from the perianal region The right side wound is smaller Objective Labs 02/11/25 08:27 02/09/25 08:42 Labs: Laboratory Results - last 24 hr 02/11/25 08:27 WBC 7.6 RBC 3.91 L Hgb 12.2 L Hct 36.0 L MCV 92.2 MCH 31.3 MCHC 33.9 RDW 12.7 Plt Count 546 H Neut % (Auto) 59.6 Lymph % (Auto) 29.4 Griggs % (Auto) 6.7 Eos % (Auto) 3.3 Baso % (Auto) 1.0 Neut # (Auto) 4500 Lymph # (Auto) 2200 [place]gs # (Auto) 500 Eos # (Auto) 300 Baso # (Auto) 100 PFSH Medical History Suppurative hidradenitis Social History household members: family Smoking Status: Never smoker alcohol intake: current Assessment & Plan Assessment and plan (1) Unspecified open wound of left buttock, initial encounter: Status: Acute Plan I recommended wound exploration in the operating room tomorrow in the prone carlos-knife position. If the wounds look suitable we could attempt a delayed primary closure over drain on 1 or both of the posterior wounds. The patient understands the primary risk of the wound failing to heal and having to open back up and he would like to proceed. Time-Based Coding :: [TOTAL MINUTES] spent with patient and on the chart (including review of chart, obtaining history, exam, reviewing outside data, placing orders, documenting exam and treatment plan, and counseling patient) on [DATE]. 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
[2025-02-11] MEDS: HYDROMORPHONE 2 MG TABLET 4 MG PO ×2 (17:37→23:40)
[2025-02-11 19:00] VITALS: O2SAT 97
[2025-02-11 22:06] VITALS: BP 103/68; PULSE 86; RESP 14; TEMP 36.2; O2SAT 100
[2025-02-11 23:00] VITALS: O2SAT 100
[2025-02-12] VITALS (14 sets, daily range): BP systolic 93–123; BP diastolic 57–73; PULSE 66–85; RESP 11–16; TEMP 36–36.8; O2SAT 98–100; BMI 20.9
[2025-02-12] MEDS: LACTATED RINGERS 1,000 ML 42 ML IV (01:05)
[2025-02-12] MEDS: HYDROMORPHONE 1 MG INJ IV ×6 (04:40→20:25)
[2025-02-12] MEDS: SODIUM CHLORIDE 0.9% FLUSH 10 ML IV (10:11)
[2025-02-12] MEDS: MEROPENEM 2 GM in SODIUM CHLORIDE 0.9% 100 ML IV (10:11)
--- NOTE | 2025-02-12 12:06 | DIET.PN1 ---
Dietary Progress Note Assessment: RD consulted for wounds. Met with pt at bedside, reports good appetite, 75-100% of meals 3x/day, snacks as needed, each meal has a good protein source (beef, chx, fish, eggs, etc). Has not noticed weight changes nor changes in appetite in last 6 months. Ht: 182.88 cm Wt: 72.575-70 kg BMI: 20.9 UBW: 160-170 lb (72.72-77.27 kg) within last 6 months, no weight hx per EMR Last BM: 02/11/25 (02/12/25 07:00) MNA: 12 Elias Score: 21 Diet: 02/12/25 00:01 NPO Diet Diet Modifications: NPO Type: NPO after Midnight Nutrition Percent Meal Consumed 100% 02/11/25 18:35 Percent Meal Consumed 10 02/11/25 09:03 Labs: RBC 3.91 X10^6/uL (4.5-5.9) L 02/11/25 08:27 Hgb 12.2 g/dL (13.5-17.5) L 02/11/25 08:27 Hct 36.0 % (41-53) L 02/11/25 08:27 Creatinine 1.22 mg/dL (0.66-1.25) 02/09/25 08:42 Lactate 1.0 mmol/L (0.7-2.1) 02/05/25 20:15 Nutrition Diagnosis: Increased nutrient needs r/t healing aeb wounds Interventions: Discussed nutrition in wound healing, adequate intakes, and monitoring weight and implementing additional small meal if weight loss occurs. Pt meeting protein needs with current diet via DFM review. EER: [id number] (25-30 kcals/kg per BMI) 70 g protein (1 g/kg) Monitoring/Evaluations: f/u PRN Electronically Signed by: Ciara Irby 02/12/25 12:06 Clinical Dietitian [address] [address]
--- NOTE | 2025-02-12 12:44 | P.PN_ITS ---
Subjective Subjective Date Patient Seen: 02/12/25 Time Patient Seen: 12:44 Interval history: No change since yesterday Exam Vital Signs (past 8 hours): - 02/12/25 07:00 02/12/25 08:33 02/12/25 11:43 Temperature 96.9 F L 96.9 F L Pulse Rate 67 77 Respiratory Rate 16 16 Blood Pressure 93/57 L 95/59 L Pulse Oximetry 100 100 100 Oxygen Delivery Method Room Air Oxygen Flow Rate 0 0 Oxygen Delivery Method Room Air Oxygen Flow Rate 0 Const General: No acute distress Objective Labs 02/11/25 08:27 02/09/25 08:42 [facility] Medical History Suppurative hidradenitis Social History household members: family Smoking Status: Never smoker alcohol intake: current Assessment & Plan Assessment and plan (1) Hidradenitis suppurativa of anogenital region: Status: Acute Plan To OR today for debridement of wounds and possible delayed primary closure of certain wounds if they look good Time-Based Coding :: [TOTAL MINUTES] spent with patient and on the chart (including review of chart, obtaining history, exam, reviewing outside data, placing orders, documenting exam and treatment plan, and counseling patient) on [DATE]. 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
--- NOTE | 2025-02-12 13:51 | CM.DPC ---
DCP Cont. Reviewed EMR and team rounds for pt's status updates. Pt was taken to the OR today to close the wounds that had been opened for I&D. Per Hospitalist, he likely will not need IV antibiotics at d/c, and likely won't need the multiple dressing changes per day after this surgery. Called Bessie at [facility] and updated her that [facility] Called [facility] and cancelled the referral. Will need to update the [employer] for Duty forms and fax to Bessie prior to d/c, call her to coordinate d/c, likely to a motel.
--- NOTE | 2025-02-12 14:14 | P.PN_ITS ---
Subjective Subjective Date Patient Seen: 02/11/25 Interval history: Chief complaint: Anal cleft and groin pain secondary to hidradenitis suppurativa and cellulitis wound culture positive for Pseudomonas also minor involvement of bilateral axilla History of present illness: 02/05/25:34 y/o with PMH of hydradenitis suppurativa on current maintenance therapy with rifampin, clindamycin and prednisone, came to ED with swelling and pain in groin and multiple draining boils on left buttock and groin. Mild leukocytosis. Has significant tenderness and pain preventing him to work. 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 Discussed with surgery for I&D upon admission to medicine for IV abx and pain control.. CT of the abdomen pelvis: PELVIS: Pelvic Organs: Normal size prostate gland. Bladder: No bladder wall thickening, accounting for underdistention. Pelvic Nodes: Borderline left common iliac/pelvic sidewall node measuring 9 mm. Bulky left inguinal node measuring at least 1.5 cm short axis. Miscellaneous: Diffuse skin thickening over the left medial buttock from the superior gluteal cleft, inferior to the level of the thigh. At the inferior-most aspect, within the thickened skin, there is of small, ill-defined area measuring by 1.3 cm of decreased density which may be small phlegmon. There are also scattered foci of gas within the thickened skin. Skin thickening extends anteriorly to the perineal body and also involves the inferomedial right gluteal region. No other areas fluid or definite foci of gas. Bones: No aggressive osseous abnormality. IMPRESSION: Findings of cellulitis along the gluteal and perineal regions with a few foci of gas within the skin. Very small possible phlegmon in the left gluteal region. 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 Scattered reactive adenopathy in the left pelvis. Hospital course: 02/06: Patient underwent surgical debridement: Started on vancomycin and ceftriaxone in the emergency department Operative Notes Findings: Hidradenitis suppurativa with multiple serpiginous sub dermal sinus tracts. Closure Type: non-primary Specimen(s): other (Wound culture) ?...The perineum and groins were prepped and draped in the usual sterile manner. Attention was directed to the right groin where a 1 x 2 cm abscess was incised and drained. This was packed open. There was no tracking. Attention was directed to the right medial thigh in a series of drainage sites were interconnected. These were traced with hemostats and lacrimal probes. The tracts were all unroofed sharply with the electrocautery and were packed open. This resulted in an X shape wound whose legs were 6 cm in length. Attention was directed to the left medial thigh. Another series of drainage sites were tract and the tract unroofed. This resulted in a wound of 5 cm length by 1 cm. A small abscess of the right scrotal base was incised and this was of 1 cm length. Attention was directed to the left buttock where another series of drainage sites were probed with hemostats and lacrimal probes. These were all unroofed and this traced up the left side of the gluteal cleft from a point overlying the ipsilateral ischial spine a distance of about 15 cm. All sinus tracts were bluntly debrided and hemostasis was obtained with direct pressure. Tracts were traced back to the point where dermis was firmly fixed to underlying tissues and completely unroofed. Dressings were applied. The patient tolerated the procedure well and was transported to the recovery room in stable condition. Complications: none... 02/07: Pain satisfactory controlled postoperatively no fevers or chills overnight white count [id number] a 83% neutrophils 02/08: Pain medication increased during dressing changes due to pain white count as de-escalated to 9000 02/09: Subjectively pain is less still requires pain medication from time to time no sweats or chills or fevers overnight white blood cell count de-escalated to 8.6 with 68% neutrophils. Wound culture positive for Pseudomonas Intravenous antibiotics Zosyn and dressing changes are being continued under the stewardship of surgery service for consensus decision patient was adjusted to meropenem 2 g IV q.12 hours for 7 days 02/10: Patient is improved today less pain no fevers or chills 02/11: Wound is healing quite well margins look good on photo documentation seen by wound care: Recommend continuing saline wet to wet dressing changes, follow up at wound center after discharge for assistance with dressing changes until he is able to travel. 02/12: No additional complaints. Plan to return to OR for further surgical management and possible closure. Exam Vital Signs (past 8 hours): - 02/12/25 07:00 02/12/25 08:33 02/12/25 11:43 Temperature 96.9 F L 96.9 F L Pulse Rate 67 77 Respiratory Rate 16 16 Blood Pressure 93/57 L 95/59 L Pulse Oximetry 100 100 100 Oxygen Delivery Method Room Air Oxygen Flow Rate 0 0 02/12/25 12:40 Temperature 98.2 F Pulse Rate 77 Respiratory Rate 16 Blood Pressure 98/62 Pulse Oximetry 100 Oxygen Delivery Method Room Air Oxygen Flow Rate Oxygen Delivery Method Room Air Oxygen Flow Rate 0 Narrative Exam Narrative: Gen: alert, no acute distress CV: RRR Ext: No edema. Objective Labs 02/11/25 08:27 02/09/25 08:42 [facility] Medical History Suppurative hidradenitis Social History household members: family Smoking Status: Never smoker alcohol intake: current Assessment & Plan Assessment & Plan narrative: Hydradenitis Suppurativa of groin / Cellulitis with culture positive of Pseudomonas status post surgical debridement 02/06 * Meropenem 2 g IV q.12 hours can be changed to a fluoroquinolone for psuedomonas based on sensitivites. Will change to Ciprofloxacin 750 mg BID starting tonight. End date therapy 02/17. * Dressing changes to be arranged with case management, may require SNF placement. Will depend on possible primary closure today with surgery. * Wound care Recommends continuing saline wet to wet dressing changes, follow up at wound center after discharge for assistance with dressing changes until he is able to travel. 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
--- NOTE | 2025-02-12 14:50 | SUR.OPER ---
Prone on padded OR bed, head in foam head support, gel chest rolls, gel pad under knees, pillow under lower legs, toes free of pressure, arms secured on padded arm boards at <90 degrees abduction. Safety belt at thigh. Bed Maurizio-Knifed
[2025-02-12] MEDS: ACETAMINOPHEN IV 1,000 MG/100 ML VIAL 400 MG IV (15:15)
[2025-02-12] MEDS: BUPIVACAINE 0.5% W/ EPI (PF) 30 ML VIAL INJ (15:46)
[2025-02-12] MEDS: OXYCODONE IR 5 MG TABLET PO (15:52)
[2025-02-12] MEDS: hydrOXYzine 50 MG/ML INJ 25 MG IM (15:54)
--- NOTE | 2025-02-12 16:19 | PM.OP.1 ---
Operative Date/Time/Diagnoses Date of procedure: 02/12/25 Time of procedure: 16:19 Pre-op diagnosis: Hidradenitis suppurativa Post-op diagnosis: same Procedure & Clinicians Procedure: Incision and debridement Delayed secondary closure of right gluteal wound Same procedure(s) as scheduled: Yes Surgeon: Jose R Parkinson Transit Bus Driver: Ganesh Dozier Click Yes if Unassisted: Yes Anesthesia Type: General Operative Notes Findings: 2 additional small purulent draining wounds in the left gluteal region Well-developed healthy granulation tissue in the pre-existing wounds Applied: none Estimated Blood Loss (mL): 5 Procedure in detail: The patient is a 34-year-old man with severe hidradenitis suppurativa. He had undergone incision and debridement by Dr. Samuel about 6 days prior. He was consented for debridement of wounds and possible delayed primary closure of his longest wound which was on his right gluteal region. He was on scheduled antibiotics. The patient was brought to the operating room and general endotracheal anesthesia was induced. He was then positioned in the prone carlos-knife position. We removed all of the packing from the multiple wounds. The longest incision was roughly 15 cm involving the left gluteal region about 5 cm off the midline. There were also noted to be 2 draining wounds in the left gluteus kade region that expressed purulent drainage when palpated. We started with these two wounds. The lower wound was opened with a 15 blade scalpel. The incision was about 2 cm. The more superior and medial wound was opened with a scalpel about 1 cm. These new wounds were then packed with iodoform gauze. Next we turned to the 15 cm left gluteal wound. Some gentle debridement was performed with a dry sponge. The wound appeared to be reasonably clean so we placed a small [place] drain into the wound and closed the skin with multiple interrupted horizontal mattress sutures using 2-0 nylon. A small opening was left at the inferior most portion of the wound. A few inches of the drain was allowed to protrude from the superior aspect of the wound and was secured to the skin with the superior most nylon stitch. The rest of the wounds were gently debrided and repacked with gauze. The patient was awakened and brought to recovery room. EBL: 10 mL Ganesh LANDRY provided assistance with exposure, retraction and closure of incisions. Complications: none Post-operative Condition: stable Disposition: PACU
[2025-02-12] MEDS: CIPROFLOXACIN 250 MG TABLET 750 MG PO (20:42)
[2025-02-13] VITALS (8 sets, daily range): BP systolic 99–109; BP diastolic 60–64; PULSE 71–83; RESP 16–19; TEMP 35.9–36.1; O2SAT 99–100
[2025-02-13] MEDS: HYDROMORPHONE 0.5 MG INJ IV ×2 (01:12→04:25)
[2025-02-13 06:05] LABS: Add Manual Diff / Slide Review NO; Basophils Absolute Auto 100 /uL (0-100); Eosinophils Absolute Auto 100 /uL (0-450); Eosinophils Percent Auto 0.9 % (2-4); Hematocrit 31.5 % (41-53); Hemoglobin 10.6 g/dL (13.5-17.5); Lymphocytes Absolute Auto 2900 /uL (1100-4500); Lymphocytes Percent Auto 24.1 % (25-40); Mean Corpuscular HGB Conc 33.7 % (30-36); Mean Corpuscular Hemoglobin 30.9 PG (26-34); Mean Corpuscular Volume 91.7 fL (80-100); Monocytes Absolute Auto 1000 /uL (0-900); Monocytes Percent Auto 8.5 % (3-14); Neutrophils Absolute Auto 7900 /uL (1500-7000); Neutrophils Percent Auto 65.5 % (50-75); Platelet Count 452 X10^3/uL (150-400); Red Blood Cell Count 3.43 X10^6/uL (4.5-5.9); Red Cell Distribution Width 12.5 % (11.6-14.8)
[2025-02-13 06:15] LABS: BUN Creatinine Ratio 16.1 (6-22); Blood Urea Nitrogen 15 mg/dL (9-20); Calcium 8.5 mg/dL (8.4-10.2); Carbon Dioxide 27 mmol/L (22-32); Chloride 103 mmol/L (98-107); Estimated Glomerular Filt Rate > 60 mL/min (>60); Glucose 96 mg/dL (70-99); HEMOLYSIS < 15 (0-50); Potassium 3.9 mmol/L (3.4-5.1); Sodium 135 mmol/L (137-145)
[2025-02-13] MEDS: CIPROFLOXACIN 250 MG TABLET 750 MG PO ×2 (06:23→20:54)
[2025-02-13] MEDS: CALCIUM CARBONATE 500 MG TAB PO (08:16)
[2025-02-13] MEDS: SODIUM CHLORIDE 0.9% FLUSH 10 ML IV ×2 (08:16→20:54)
[2025-02-13] MEDS: ENOXAPARIN 40 MG/0.4 ML SYRINGE SUBCUT (08:16)
[2025-02-13] MEDS: HYDROMORPHONE 1 MG INJ IV ×4 (09:30→20:53)
--- NOTE | 2025-02-13 09:58 | PC.NURSE ---
Post-surg wound care instructions per MD Parkinson via telephone: BID (or as needed) dressing changes [place] drain in place for largest L gluteal incision, don't remove drain Gauze or ABD over ends to absorb drainage 2 incisions lateral to left gluteal area Iodaform (not super packed, just enough to keep from closing/wick drainage ou)t Cover with gauze or ABD to absorb drainage Other previous surgical incisions Wet to dry (wring out as much liquid as possible) or dry to dry if heavy drainage, ABD pad to cover if needed
--- NOTE | 2025-02-13 10:51 | CM.DPC ---
DCP SNF Planning Cont: Per MD, pt was taken to OR yesterday with Surgeon for further I&D and were able to close up one wound but found additional new abscess and pin cuong drain placed in one wound. Pt remains with need for daily dressing changes and not healed enough yet for d/c to hotel or to fly home yet. Recommendation remains SNF for wound healing and care before stable for lower level of care. SIMONE contacted pt's PARUL La and updated her and she confirms they have coordinated with [facility] and in agreement to pay privately for SNF for wound healing and aware of likely outpt [facility] and Surgeon f/u and after d/c will get updated notes from those clinics directly. Faxed updated MD and Surgeon prog notes from yesterday along with Op note and Wound Consult note to review. Bessie confirms they will still need the Medical Tx Form completed and signed by MD at d/c even if pt discharges to SNF. SIMONE updated [facility] admission of likely need for SNF at d/c (thought maybe pt would have wounds closed for d/c to [facility], but no longer the case) and pt switched to PO abx for coverage and they can still accept if payment received by pt's employer. PASRR done in anticipation of SNF in the next couple to few days pending Surgeon and Wound MD recommendations. Plan: SW to follow for plan of d/c to [facility] private pay by employer and to fax d/c summary and Medical tx forms to [employer] [facility] at d/c. MATHEUS Flaherty
--- NOTE | 2025-02-13 11:25 | PC.NURSE ---
Pt ambulated 2x around [facility] with SBA/FWW, pt tolerated well. Pt reports pain improved. Plan of care continues.
--- NOTE | 2025-02-13 13:29 | PM.PN.1 ---
Subjective Subjective Date Patient Seen: 02/11/25 Interval history: Chief complaint: Anal cleft and groin pain secondary to hidradenitis suppurativa and cellulitis wound culture positive for Pseudomonas also minor involvement of bilateral axilla History of present illness: 02/05/25:34 y/o with PMH of hydradenitis suppurativa on current maintenance therapy with rifampin, clindamycin and prednisone, came to ED with swelling and pain in groin and multiple draining boils on left buttock and groin. Mild leukocytosis. Has significant tenderness and pain preventing him to work. 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 Discussed with surgery for I&D upon admission to medicine for IV abx and pain control.. CT of the abdomen pelvis: PELVIS: Pelvic Organs: Normal size prostate gland. Bladder: No bladder wall thickening, accounting for underdistention. Pelvic Nodes: Borderline left common iliac/pelvic sidewall node measuring 9 mm. Bulky left inguinal node measuring at least 1.5 cm short axis. Miscellaneous: Diffuse skin thickening over the left medial buttock from the superior gluteal cleft, inferior to the level of the thigh. At the inferior-most aspect, within the thickened skin, there is of small, ill-defined area measuring by 1.3 cm of decreased density which may be small phlegmon. There are also scattered foci of gas within the thickened skin. Skin thickening extends anteriorly to the perineal body and also involves the inferomedial right gluteal region. No other areas fluid or definite foci of gas. Bones: No aggressive osseous abnormality. IMPRESSION: Findings of cellulitis along the gluteal and perineal regions with a few foci of gas within the skin. Very small possible phlegmon in the left gluteal region. 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 Scattered reactive adenopathy in the left pelvis. Hospital course: 02/06: Patient underwent surgical debridement: Started on vancomycin and ceftriaxone in the emergency department Operative Notes Findings: Hidradenitis suppurativa with multiple serpiginous sub dermal sinus tracts. Closure Type: non-primary Specimen(s): other (Wound culture) ?...The perineum and groins were prepped and draped in the usual sterile manner. Attention was directed to the right groin where a 1 x 2 cm abscess was incised and drained. This was packed open. There was no tracking. Attention was directed to the right medial thigh in a series of drainage sites were interconnected. These were traced with hemostats and lacrimal probes. The tracts were all unroofed sharply with the electrocautery and were packed open. This resulted in an X shape wound whose legs were 6 cm in length. Attention was directed to the left medial thigh. Another series of drainage sites were tract and the tract unroofed. This resulted in a wound of 5 cm length by 1 cm. A small abscess of the right scrotal base was incised and this was of 1 cm length. Attention was directed to the left buttock where another series of drainage sites were probed with hemostats and lacrimal probes. These were all unroofed and this traced up the left side of the gluteal cleft from a point overlying the ipsilateral ischial spine a distance of about 15 cm. All sinus tracts were bluntly debrided and hemostasis was obtained with direct pressure. Tracts were traced back to the point where dermis was firmly fixed to underlying tissues and completely unroofed. Dressings were applied. The patient tolerated the procedure well and was transported to the recovery room in stable condition. Complications: none... 02/07: Pain satisfactory controlled postoperatively no fevers or chills overnight white count 01842 a 83% neutrophils 02/08: Pain medication increased during dressing changes due to pain white count as de-escalated to 9000 02/09: Subjectively pain is less still requires pain medication from time to time no sweats or chills or fevers overnight white blood cell count de-escalated to 8.6 with 68% neutrophils. Wound culture positive for Pseudomonas Intravenous antibiotics Zosyn and dressing changes are being continued under the stewardship of surgery service for consensus decision patient was adjusted to meropenem 2 g IV q.12 hours for 7 days 02/10: Patient is improved today less pain no fevers or chills 02/11: Wound is healing quite well margins look good on photo documentation seen by wound care: Recommend continuing saline wet to wet dressing changes, follow up at wound center after discharge for assistance with dressing changes until he is able to travel. 02/12: No additional complaints. Returned to the OR for additional small I&D and closure of the largest wound where a drain was also placed. 02/13: Continued pain, working on disposition options. Has a bit more pressure from the drain now, but otherwise feeling well. Exam Vital Signs (past 8 hours): - 02/13/25 07:00 02/13/25 11:00 02/13/25 11:29 Temperature 96.6 F L Pulse Rate 71 Respiratory Rate 16 Blood Pressure 99/64 Pulse Oximetry 100 99 100 Oxygen Delivery Method Room Air Room Air Oxygen Flow Rate 0 0 Oxygen Delivery Method Room Air Oxygen Flow Rate 0 Narrative Exam Narrative: Gen: alert, no acute distress CV: RRR Ext: No edema. Objective Labs 02/13/25 05:32 02/13/25 05:32 Labs: Laboratory Results - last 24 hr 02/13/25 05:32 WBC 12.0 H D RBC 3.43 L Hgb 10.6 L Hct 31.5 L MCV 91.7 MCH 30.9 MCHC 33.7 RDW 12.5 Plt Count 452 H Neut % (Auto) 65.5 Lymph % (Auto) 24.1 L [place] % (Auto) 8.5 Eos % (Auto) 0.9 L Baso % (Auto) 1.0 Neut # (Auto) 7900 H Lymph # (Auto) 2900 [place] # (Auto) 1000 H Eos # (Auto) 100 Baso # (Auto) 100 Sodium 135 L Potassium 3.9 Chloride 103 Carbon Dioxide 27 BUN 15 Creatinine 0.93 Estimated GFR > 60 BUN/Creatinine Ratio 16.1 Glucose 96 Calcium 8.5 [facility] Medical History Suppurative hidradenitis Social History household members: family Smoking Status: Never smoker alcohol intake: current Assessment & Plan Assessment & Plan narrative: Hydradenitis Suppurativa of groin / Cellulitis with culture positive of Pseudomonas status post surgical debridement 02/06, closure with drain on 02/12 Meropenem 2 g IV q.12 hours changed to a fluoroquinolone for psuedomonas based on sensitivites. Changed to Ciprofloxacin 750 mg BID starting 02/12 PM. End date therapy 02/17. Dressing changes to be arranged with case management, may require SNF placement. Will need to continue BID dressing changes and prn with bowel movements after surgery. Wound care Recommends continuing saline wet to wet dressing changes, follow up at wound center after discharge for assistance with dressing changes until he is able to travel. 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 Possible discharge to SNF until able to get home. Time-Based Coding :: [TOTAL MINUTES] spent with patient and on the chart (including review of chart, obtaining history, exam, reviewing outside data, placing orders, documenting exam and treatment plan, and counseling patient) on [DATE].
--- NOTE | 2025-02-13 17:22 | PM.PNPO.1 ---
Subjective Subjective Date Patient Seen: 02/13/25 Time Patient Seen: 17:23 Interval history: Doing well following delayed primary closure of one of his left gluteal wounds. He was had dressings changed today to the remainder of the wounds. The primary area of sensitivity seems to be the inner thighs. Exam Vital Signs (past 8 hours): - 02/13/25 11:00 02/13/25 11:29 02/13/25 15:00 Temperature 96.6 F L Pulse Rate 71 Respiratory Rate 16 Blood Pressure 99/64 Pulse Oximetry 99 100 100 Oxygen Delivery Method Room Air Room Air Oxygen Flow Rate 0 0 0 Oxygen Delivery Method Room Air Oxygen Flow Rate 0 Const General: healthy appearing and No acute distress Objective Labs 02/13/25 05:32 02/13/25 05:32 Labs: Laboratory Results - last 24 hr 02/13/25 05:32 WBC 12.0 H D RBC 3.43 L Hgb 10.6 L Hct 31.5 L MCV 91.7 MCH 30.9 MCHC 33.7 RDW 12.5 Plt Count 452 H Neut % (Auto) 65.5 Lymph % (Auto) 24.1 L [place] % (Auto) 8.5 Eos % (Auto) 0.9 L Baso % (Auto) 1.0 Neut # (Auto) 7900 H Lymph # (Auto) 2900 [place] # (Auto) 1000 H Eos # (Auto) 100 Baso # (Auto) 100 Sodium 135 L Potassium 3.9 Chloride 103 Carbon Dioxide 27 BUN 15 Creatinine 0.93 Estimated GFR > 60 BUN/Creatinine Ratio 16.1 Glucose 96 Calcium 8.5 PFSH Medical History Suppurative hidradenitis Social History household members: family Smoking Status: Never smoker alcohol intake: current Assessment & Plan Post-op Postoperative Procedures: Procedures Operation Date: 02/06/25 15:30 Actual Procedure Side Surgeon p Incision and Drainage, Bilateral groin and left buttocks Bilateral Anton Samuel MD Operation Date: 02/12/25 15:15 Actual Procedure Side Surgeon p Incision and Drainage groin and Delayed Primary Closure Jose R Parkinson MD Postoperative status narrative: Doing well. We discussed diet and lifestyle. Continue wound care to open wounds. Once he is comfortable enough to travel by plane he will return to [place].
[2025-02-14] MEDS: HYDROMORPHONE 1 MG INJ IV ×2 (00:08→14:16)
[2025-02-14] MEDS: HYDROMORPHONE 2 MG TABLET PO ×3 (00:48→18:50)
[2025-02-14 03:00] VITALS: O2SAT 100
[2025-02-14] MEDS: CIPROFLOXACIN 250 MG TABLET 750 MG PO ×2 (06:26→21:34)
[2025-02-14 06:48] LABS: Add Manual Diff / Slide Review NO; Basophils Absolute Auto 100 /uL (0-100); Basophils Percent Auto 1.6 % (0-2); Eosinophils Absolute Auto 200 /uL (0-450); Eosinophils Percent Auto 3.3 % (2-4); Hematocrit 33.8 % (41-53); Hemoglobin 11.3 g/dL (13.5-17.5); Lymphocytes Absolute Auto 2000 /uL (1100-4500); Lymphocytes Percent Auto 27.6 % (25-40); Mean Corpuscular HGB Conc 33.4 % (30-36); Monocytes Absolute Auto 500 /uL (0-900); Monocytes Percent Auto 7.5 % (3-14); Neutrophils Absolute Auto 4300 /uL (1500-7000); Platelet Count 449 X10^3/uL (150-400); Red Blood Cell Count 3.64 X10^6/uL (4.5-5.9); Red Cell Distribution Width 12.8 % (11.6-14.8); White Blood Cell Count 7.2 X10^3/uL (4.5-11.0)
[2025-02-14 07:03] LABS: BUN Creatinine Ratio 13.5 (6-22); Blood Urea Nitrogen 14 mg/dL (9-20); Carbon Dioxide 29 mmol/L (22-32); Chloride 102 mmol/L (98-107); Estimated Glomerular Filt Rate > 60 mL/min (>60); Glucose 122 mg/dL (70-99); HEMOLYSIS < 15 (0-50); Sodium 136 mmol/L (137-145)
--- NOTE | 2025-02-14 07:28 | PC.NURSE ---
02/13: Forgot to document yesterday. Groin/buttock/inner thigh dressings changed at 1430, armpit dressings changed at 1515. Notified Monica Yusuf and Iggy re: purulent drainage in armpits. No new orders at this time. Pt tolerated well, resting comfortably afterwards.
[2025-02-14] MEDS: GABAPENTIN 100 MG CAPSULE 200 MG PO ×3 (10:06→21:34)
[2025-02-14] MEDS: KETOROLAC 30 MG/ML VIAL 15 MG IV ×3 (10:07→21:35)
[2025-02-14] MEDS: ACETAMINOPHEN 325 MG TABLET 975 MG PO ×2 (10:08→16:31)
[2025-02-14] MEDS: ENOXAPARIN 40 MG/0.4 ML SYRINGE SUBCUT (10:08)
[2025-02-14] MEDS: SODIUM CHLORIDE 0.9% FLUSH 10 ML IV ×2 (10:08→21:36)
[2025-02-14 11:00] VITALS: O2SAT 99
--- NOTE | 2025-02-14 11:04 | PM.PN.IH.1 ---
Subjective Subjective Date Patient Seen: 02/14/25 Time Patient Seen: 09:25 Interval history: No acute changes overnight. Patient feeling overall well today. Pain has been well controlled. Exam Vital Signs (past 8 hours): Oxygen Delivery Method Room Air Oxygen Flow Rate 0 Narrative Exam Narrative: Const General: cooperative, comfortable and alert, awake and oriented x3 Resp: Effort & Inspection: normal respiratory effort and able to speak in complete sentences Cardio: regular rate GI: Soft, nondistended : deferred Integumentary: dry skin Neuro: patient alert, patient awake and patient oriented x3 Extrem: Wound evaluation deferred. Dressing is in place. Psych: mental status grossly normal, judgment good Objective Labs 02/14/25 06:30 02/14/25 06:30 Labs: Laboratory Results - last 24 hr 02/14/25 06:30 WBC 7.2 RBC 3.64 L Hgb 11.3 L Hct 33.8 L MCV 93.0 MCH 31.0 MCHC 33.4 RDW 12.8 Plt Count 449 H Neut % (Auto) 60.0 Lymph % (Auto) 27.6 [place] % (Auto) 7.5 Eos % (Auto) 3.3 Baso % (Auto) 1.6 Neut # (Auto) 4300 Lymph # (Auto) 2000 [place] # (Auto) 500 Eos # (Auto) 200 Baso # (Auto) 100 Sodium 136 L Potassium 4.0 Chloride 102 Carbon Dioxide 29 BUN 14 Creatinine 1.04 Estimated GFR > 60 BUN/Creatinine Ratio 13.5 Glucose 122 H Calcium 9.0 PFSH Medical History Suppurative hidradenitis Social History household members: family Smoking Status: Never smoker alcohol intake: current Assessment & Plan Assessment & Plan narrative: This is a 34-year-old gentleman with a past medical history of hidradenitis who is postop day 8 & 2 s/p incision and drainage of multiple hidradenitis abscesses and delayed primary closure of the largest wound of the left lower extremity. Patient appears to be recovering overall well. -continue multimodal pain control. Tylenol, gabapentin and Toradol added in order to improve patient's pain control. -continue antibiotics for a total of 7 days. Okay to resume patient's home suppressive antibiotic regimen once he has completed antibiotics. -we will monitor patient's wound over the weekend and do a full assessment. -continue physical therapy -continue to work on disposition. Once patient's pain is better controlled and he is able to sit, patient can travel back home to [place]. Continue to local wound care and patient will need follow-up in General surgery Clinic in the next 2 weeks. 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
--- NOTE | 2025-02-14 12:17 | P.PN_ITS ---
Subjective Subjective Date Patient Seen: 02/14/25 Time Patient Seen: 09:40 Interval history: Chief complaint: Anal cleft and groin pain secondary to hidradenitis suppurativa and cellulitis wound culture positive for Pseudomonas also minor involvement of bilateral axilla History of present illness: 02/05/25:34 y/o with PMH of hydradenitis suppurativa on current maintenance therapy with rifampin, clindamycin and prednisone, came to ED with swelling and pain in groin and multiple draining boils on left buttock and groin. Mild leukocytosis. Has significant tenderness and pain preventing him to work. He gets care in [place] where he follows with PCP, senior digital designer and surgeon for hydradenitis. 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 Discussed with surgery for I&D upon admission to medicine for IV abx and pain control.. CT of the abdomen pelvis: PELVIS: Pelvic Organs: Normal size prostate gland. Bladder: No bladder wall thickening, accounting for underdistention. Pelvic Nodes: Borderline left common iliac/pelvic sidewall node measuring 9 mm. Bulky left inguinal node measuring at least 1.5 cm short axis. Miscellaneous: Diffuse skin thickening over the left medial buttock from the superior gluteal cleft, inferior to the level of the thigh. At the inferior-most aspect, within the thickened skin, there is of small, ill-defined area measuring by 1.3 cm of decreased density which may be small phlegmon. There are also scattered foci of gas within the thickened skin. Skin thickening extends anteriorly to the perineal body and also involves the inferomedial right gluteal region. No other areas fluid or definite foci of gas. Bones: No aggressive osseous abnormality. IMPRESSION: Findings of cellulitis along the gluteal and perineal regions with a few foci of gas within the skin. Very small possible phlegmon in the left gluteal region. 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 Scattered reactive adenopathy in the left pelvis. Hospital course: 02/06: Patient underwent surgical debridement: Started on vancomycin and ceftriaxone in the emergency department Operative Notes Findings: Hidradenitis suppurativa with multiple serpiginous sub dermal sinus tracts. Closure Type: non-primary Specimen(s): other (Wound culture) ?...The perineum and groins were prepped and draped in the usual sterile manner. Attention was directed to the right groin where a 1 x 2 cm abscess was incised and drained. This was packed open. There was no tracking. Attention was directed to the right medial thigh in a series of drainage sites were interconnected. These were traced with hemostats and lacrimal probes. The tracts were all unroofed sharply with the electrocautery and were packed open. This resulted in an X shape wound whose legs were 6 cm in length. Attention was directed to the left medial thigh. Another series of drainage sites were tract and the tract unroofed. This resulted in a wound of 5 cm length by 1 cm. A small abscess of the right scrotal base was incised and this was of 1 cm length. Attention was directed to the left buttock where another series of drainage sites were probed with hemostats and lacrimal probes. These were all unroofed and this traced up the left side of the gluteal cleft from a point overlying the ipsilateral ischial spine a distance of about 15 cm. All sinus tracts were bluntly debrided and hemostasis was obtained with direct pressure. Tracts were traced back to the point where dermis was firmly fixed to underlying tissues and completely unroofed. Dressings were applied. The patient tolerated the procedure well and was transported to the recovery room in stable condition. Complications: none... 02/07: Pain satisfactory controlled postoperatively no fevers or chills overnight white count 36445 a 83% neutrophils 02/08: Pain medication increased during dressing changes due to pain white count as de-escalated to 9000 02/09: Subjectively pain is less still requires pain medication from time to time no sweats or chills or fevers overnight white blood cell count de-escalated to 8.6 with 68% neutrophils. Wound culture positive for Pseudomonas Intravenous antibiotics Zosyn and dressing changes are being continued under the stewardship of surgery service for consensus decision patient was adjusted to meropenem 2 g IV q.12 hours for 7 days 02/10: Patient is improved today less pain no fevers or chills 02/11: Wound is healing quite well margins look good on photo documentation seen by wound care: Recommend continuing saline wet to wet dressing changes, follow up at wound center after discharge for assistance with dressing changes until he is able to travel. 02/12: No additional complaints. Returned to the OR for additional small I&D and closure of the largest wound where a drain was also placed. 02/13: Continued pain, working on disposition options. Has a bit more pressure from the drain now, but otherwise feeling well. 02/14: Patient reports ongoing pain. He is able to get up and walk independently per nursing. Surgery is following. Exam Vital Signs (past 8 hours): - 02/14/25 07:00 Oxygen Delivery Method Room Air Oxygen Flow Rate 0 Oxygen Delivery Method Room Air Oxygen Flow Rate 0 Narrative Exam Narrative: Gen: alert, no acute distress CV: RRR Ext: No edema. Dressings in place, clean, dry and intact Objective Labs 02/14/25 06:30 02/14/25 06:30 Labs: Laboratory Results - last 24 hr 02/14/25 06:30 WBC 7.2 RBC 3.64 L Hgb 11.3 L Hct 33.8 L MCV 93.0 MCH 31.0 MCHC 33.4 RDW 12.8 Plt Count 449 H Neut % (Auto) 60.0 Lymph % (Auto) 27.6 [place] % (Auto) 7.5 Eos % (Auto) 3.3 Baso % (Auto) 1.6 Neut # (Auto) 4300 Lymph # (Auto) 2000 [place] # (Auto) 500 Eos # (Auto) 200 Baso # (Auto) 100 Sodium 136 L Potassium 4.0 Chloride 102 Carbon Dioxide 29 BUN 14 Creatinine 1.04 Estimated GFR > 60 BUN/Creatinine Ratio 13.5 Glucose 122 H Calcium 9.0 PFSH Medical History Suppurative hidradenitis Social History household members: family Smoking Status: Never smoker alcohol intake: current Assessment & Plan Assessment & Plan narrative: Hydradenitis Suppurativa of groin / Cellulitis with culture positive of Pseudomonas status post surgical debridement 02/06, closure with drain on 02/12 * Meropenem 2 g IV q.12 hours changed to a fluoroquinolone for pseudomonas based on sensitivites. Changed to Ciprofloxacin 750 mg BID starting 02/12 PM. End date therapy 02/17. * Dressing changes to be arranged with case management, may require SNF placement. Will need to continue BID dressing changes and prn with bowel movements after surgery. * Wound care Recommends continuing saline wet to wet dressing changes, follow up at wound center after discharge for assistance with dressing changes until he is able to travel. * Follows with outpatient dermatology at home. Consider adalimumab outpatient therapy given refractory nature. 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 Possible discharge to SNF until able to get home. PROFEE Poultry Farmer Document charge(s): No Charge Codes Subsequent inpatient/observation care: [id number]
--- NOTE | 2025-02-14 13:01 | PC.NURSE ---
Applied Mepilex to sacral area d/t observed faint blanchable redness and risk for skin integrity/Elias scale. Pt tolerated well.
--- NOTE | 2025-02-14 13:14 | CM.DPNOTE ---
Addendum entered by MATHEUS Chung 02/14/25 16:15: DCP Update: DCP spoke with patient while rn plastic surgery, Alia Bee, at bedside. Updated on discharge plans for 02/15 at 11:30am. Pt verbalized understanding. Per rn plastic surgery, requested a follow up appt be scheduled as soon as next week for patient; asked this BEE ROBBER to call Wound Clinic to schedule. DCP called Wound Clinic. Spoke with Aurora LALA. She kindly preemptively scheduled pt for next available appt on 02/18 at 0800 pending insurance authorization. It is reported that their Employment Representative will follow up on Payor source; [facility] for [facility] stay. Forwarded to rn plastic surgery of Account Solutions Analyst, Bessie Laura, and her contact information. DCP called [employer] regulatory product managerBessie, and updated of pt appt time at [facility]. Discussed authorization and she states it is authorized but is available for any questions for outpatient appt. Insurance CM requesting Medical Treatment Form and Fitness to Travel Authorization forms to be completed and sent on day of discharge. Dary Palomino, [facility] Original Note: DCP Continued: Reviewed EMR and team rounds for pt?s medical status. Per hospitalist, pt cleared for discharge to SNF when available for continued wound care needs until travel back to [place]. DCP spoke with Admissions at [facility], it is reported that patient is accepted when medically cleared; will need payment from pt employer insurance ([employer]) prior to arrival as well as pharmacy payor forms completed by employer insurance. Pt slotted for transfer on 02/15 at 1130 via their facility van. DCP spoke with [employer] regulatory product managerBessie, and updated on patient status. She states her billing department will coordinate with [facility] Business office for payment over the phone as well as reconcile pharmacy release form. DCP sent most recent Progress note from 02/13 for review via secure email. DCP notified hospitalist of possible transport time and noted on patient status board. PASRR completed and with pt facesheet. DCP to attempt to complete Medical Treatment Form and Fitness to Travel Authorization with hospitalist and send to [employer] regulatory product managerBessie, when completed. Plan: Anticipating dc to [facility] on 02/15 at 1130 via their facility van. CM Team will continue to follow for coordination of discharge plans. SYLWIA BorjasSW
--- NOTE | 2025-02-14 13:57 | DIET.PN1 ---
Dietary Progress Note Assessment: RD consulted to discussed processed foods. Surgeon discussed with pt importance of health diet for management of hidradenitis suppurativa. Met with pt at bedside to further discuss nutrition and implementation into lifestyle. Pt has been wanting to transition to healthier style of eating recently as well. 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 grilled/baked over fried, lean protein sources), various snack options, including in fruits and vegs for antioxidants in line with Mediterranean style of eating, label reading for added sugars, and good PO intakes for wound healing. Monitoring/Evaluations: f/u PRN, monitoring PO intakes and for good protein sources at each meal Electronically Signed by: Ciara Irby 02/14/25 13:57 Clinical Diet[address] [id number]
[2025-02-14 15:00] VITALS: O2SAT 100
--- NOTE | 2025-02-14 16:17 | PC.RNWOUND ---
Wound Care Consult Note Asked to see patient with nurseGena. Photos taken. Wet to damp dressing applied, gauze moist with distilled water and border foams to cover. Patient tolerated dressing change. Patient to discharge tomorrow and to follow up with Wound Care Center on Monday, January.
--- NOTE | 2025-02-14 17:04 | PC.NURSE ---
Premedicated with 1mg IVP hydromorphone. Pt reported pain 1/10. Removed dressings and packing, took pictures for EMAR (uploaded by RN Y , see EMAR wound photos) and replaced dressings with help of SPIKE Rojo from wound care. MD Smith also observed. Replaced dressings for small L gluteal incisions with iodaform and small mepilexes. Replaced larger dressings with wet to dry gauze + mepilex. Placed two gauze pieces in fold of groin/thigh to prevent rubbing. Pt states dressings are more comfortable than in past. Pt tolerated dressing changes very well. Medicated after with scheduled APAP and ketorolac. Pt reports pain 2/10. Performed HCl bath with patient's help. Pt resting comfortably and eating dinner. Plan of care continues. Asked MD Smith if PICC should be removed before planned discharge tomorrow. MD Smith ordered to leave it in until d/c is finalized tomorrow. No new orders at this time.
[2025-02-14 20:00] VITALS: BP 105/55; PULSE 70; RESP 18; TEMP 36.2; O2SAT 100
[2025-02-14 22:00] VITALS: O2SAT 99
[2025-02-14] MEDS: HYDROMORPHONE 0.5 MG INJ IV (23:05)
[2025-02-15 02:00] VITALS: O2SAT 96
[2025-02-15 06:00] VITALS: O2SAT 98
[2025-02-15] MEDS: CIPROFLOXACIN 250 MG TABLET 750 MG PO (06:35)
[2025-02-15 07:04] LABS: Add Manual Diff / Slide Review NO; Basophils Absolute Auto 100 /uL (0-100); Basophils Percent Auto 2.5 % (0-2); Eosinophils Absolute Auto 200 /uL (0-450); Eosinophils Percent Auto 4.4 % (2-4); Hematocrit 33.4 % (41-53); Hemoglobin 11.1 g/dL (13.5-17.5); Lymphocytes Absolute Auto 1800 /uL (1100-4500); Lymphocytes Percent Auto 32.4 % (25-40); Mean Corpuscular HGB Conc 33.2 % (30-36); Mean Corpuscular Volume 93.5 fL (80-100); Monocytes Absolute Auto 500 /uL (0-900); Monocytes Percent Auto 9.2 % (3-14); Neutrophils Absolute Auto 2800 /uL (1500-7000); Neutrophils Percent Auto 51.5 % (50-75); Platelet Count 465 X10^3/uL (150-400); Red Blood Cell Count 3.57 X10^6/uL (4.5-5.9); Red Cell Distribution Width 12.7 % (11.6-14.8); White Blood Cell Count 5.4 X10^3/uL (4.5-11.0)
[2025-02-15 07:22] LABS: BUN Creatinine Ratio 15.9 (6-22); Blood Urea Nitrogen 18 mg/dL (9-20); Calcium 9.2 mg/dL (8.4-10.2); Carbon Dioxide 27 mmol/L (22-32); Chloride 105 mmol/L (98-107); Estimated Glomerular Filt Rate > 60 mL/min (>60); Glucose 99 mg/dL (70-99); HEMOLYSIS < 15 (0-50); Potassium 4.4 mmol/L (3.4-5.1); Sodium 137 mmol/L (137-145)
[2025-02-15] MEDS: HYDROMORPHONE 2 MG TABLET 4 MG PO (08:01)
[2025-02-15] MEDS: ACETAMINOPHEN 325 MG TABLET 975 MG PO (09:59)
[2025-02-15] MEDS: ENOXAPARIN 40 MG/0.4 ML SYRINGE SUBCUT (09:59)
[2025-02-15 10:00] VITALS: O2SAT 96
[2025-02-15] MEDS: SODIUM CHLORIDE 0.9% FLUSH 10 ML IV (10:00)
[2025-02-15] MEDS: KETOROLAC 30 MG/ML VIAL 15 MG IV (10:00)
[2025-02-15] MEDS: GABAPENTIN 100 MG CAPSULE 200 MG PO (10:00)
--- NOTE | 2025-02-15 10:22 | PM.DS.1 ---
History of Present Illness History of Present Illness Chief complaint: swelling and pain in groin Narrative: Per H&P: 34 y/o with PMH of hydradenitis suppurativa on current maintenance therapy with rifampin, clindamycin and prednisone, came to ED with swelling and pain in groin and multiple draining boils on left buttock and groin. Mild leukocytosis. Has significant tenderness and pain preventing him to work. He gets care in [place] where he follows with PCP, clinic licensed practical nurse and surgeon for hydradenitis. 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 Discussed with surgery for I&D upon admission to medicine for IV abx and pain control. Discharge Providers Provider Date of admission: 02/05/25 23:53 Discharge Date: 02/15/25 Consults: 02/06/25 07:56 Consult to General Surgery Routine Comment: Consulting Provider: Anton Samuel Reason for consultation: cellulitis/Hydradentits Suppurativa Has provider been notified: Yes 02/06/25 17:12 Consult to Discharge Planning Routine Comment: 02/10/25 10:49 Consult to Home Health Routine Comment: Reason For Exam: Set up RN for wound care and PICC mngmt 02/10/25 15:23 Consult to Wound Care Routine Comment: Consulting Provider: [facility] Discharge provider: Kaylan Mock MD Summary Hospital Course Discharge Diagnosis: 1. Hidradenitis suppurativa of groin, left buttock 2. Pseudomonas infection status post surgical debridement on 02/06/2025 and closure with drain placement on 02/12/2025 Hospital Course: Patient was admitted with worsening hidradenitis of the anogenital region over the 2 weeks prior to admission. He is on chronic suppressive therapy with rifampin, clindamycin, and prednisone. Unfortunately, despite suppressive therapy, and continue to worsen on an outpatient basis. He was admitted and placed on IV antibiotics. General surgery was consulted and he was taken to the operating room for incision and drainage as well as debridement on 02/06/2025. He returned to the operating room for delayed secondary closure of right gluteal wound on 02/12/2025. He was placed on oral ciprofloxacin on 02/12/2025. He will be completing oral antibiotics on 02/17/2025. Plan is to resume his usual chronic suppressive therapy on 02/18/2025. He is encouraged to use antibacterial soap for bathing. No shaving in the areas where he has hidradenitis. He is encouraged to follow-up with his clinic licensed practical nurse upon his return to [place]. Patient is discharged in stable condition Status at Discharge Cognitive/behavioral status at discharge: at baseline, oriented Functional status at discharge: independent ambulation Overall status at discharge: patient is progressing back to baseline Time Spent with Patient Time spent: Greater than 30 minutes Exam Vital Signs (past 8 hours): - 02/15/25 06:00 Pulse Oximetry 98 Oxygen Delivery Method Room Air Oxygen Delivery Method Room Air Oxygen Flow Rate 0 Narrative Exam Narrative: GEN: Very pleasant adult male, Alert and oriented x 3, NAD HEENT:NC, Face symmetric CHEST: Respiratory excursions symmetric, CTAB CV: RRR, no M/R/G ABD: Soft, NT/ND, BT present in all 4 quadrants, no organomegaly or masses EXTR: warm, well perfused, no C/C/E SKIN: warm and dry, no rash, wounds were not visualized NEURO: Alert and oriented x 3, nonfocal Objective Labs 02/15/25 06:54 02/15/25 06:54 Labs: Laboratory Results - last 24 hr 02/15/25 06:54 WBC 5.4 RBC 3.57 L Hgb 11.1 L Hct 33.4 L MCV 93.5 MCH 31.0 MCHC 33.2 RDW 12.7 Plt Count 465 H Neut % (Auto) 51.5 Lymph % (Auto) 32.4 [place] % (Auto) 9.2 Eos % (Auto) 4.4 H Baso % (Auto) 2.5 H Neut # (Auto) 2800 Lymph # (Auto) 1800 [place] # (Auto) 500 Eos # (Auto) 200 Baso # (Auto) 100 Sodium 137 Potassium 4.4 Chloride 105 Carbon Dioxide 27 BUN 18 Creatinine 1.13 Estimated GFR > 60 BUN/Creatinine Ratio 15.9 Glucose 99 Calcium 9.2 [facility] Medical History Suppurative hidradenitis Social History household members: family Smoking Status: Never smoker alcohol intake: current Discharge Plan Discharge Plan Patient Disposition: SNF Transfer to: [facility] and [facility] Under care of provider: Facility MD Provider Discharge Comment: You were admitted w/abscesses related to Hidradenitis Suppurativa. You require ongoing wound care. Wound Care: Dressings: Moisten gauze with distilled gauze (wet to damp) and apply border foams to cover Patient to f/u with Wound Care clinic on Monday02/18/25 Return to the ED: Fevers/chills inability to hold down food/fluids increased swelling or pain to groin/buttocks/armpits INSTRUCTIONS FOR FACILITY: RESUME THE FOLLOWING MEDICATIONS ON 02/18/25 RIFAMPIN 300 MG PO BID CLINDAMYCIN 300 MG BID PREDNISONE 30 MG DAILY Discharge orders & Medications Prescriptions: New acetaminophen 325 mg Tablet 975 mg PO Q8H Qty: 30 0RF ciprofloxacin HCl 250 mg Tablet 750 mg PO 0700,2100 Qty: 15 0RF calcium carbonate 200 mg calcium (500 mg) Tablet,Chewable 500 mg PO PRN PRN (Reason: Dyspepsia) Qty: 30 0RF gabapentin 100 mg Capsule 200 mg PO TID Qty: 30 0RF hydromorphone 2 mg Tablet 4 mg PO Q4HR PRN (Reason: Pain, Severe (7-10)) Qty: 30 0RF Discontinued rifampin 300 mg capsule 600 mg PO DAILY clindamycin HCl 300 mg capsule 300 mg PO BID prednisone 10 mg tablet 30 mg PO DAILY Discharge Health Status Multidrug resistant organism: No MDRO Precautions: [place] Diet/Activity/Treatments Diet: Diet as Tolerated and Regular Liquid consistency: Normal/Thin Food texture: Regular Oxygen: N/A Visit Report/Discharge Packet Instructions: Hidradenitis Suppurativa, DI for Incision and Drainage, [facility]: Wound Care Stand Alone Forms: Patient Portal/API
--- NOTE | 2025-02-15 10:57 | CM.DPC ---
DCP Discharge to SNF Per MD, pt remains medically stable to d/c to SNF today for ongoing wound care needs and healing and completed discharge as well as kindly completed the Medical Forms for pt's employer who is covering the cost of pt's care. SIMONE secure emailed admissions the [facility], signed med list, script, d/c summary and orders to review and they confirm they can waste picker pt around 1130 today for ongoing wound care. SIMONE secure emailed Bessie TERAN for pt's empolyer the completed Medical Forms she requested and d/c summary to review and alerted her that pt is discharging as anticipated to [facility] today. Updated email specialist, PIPELINES SUPERVISOR, and RN and provided number to call report. Pt aware of discharge plan from yesterday and remains in agreement. Plan: Patient to d/c to [facility] for ongoing wound care/healing under private pay by employer and outpt f/u with [facility] on 02/18/25 before safe for travel back to [facility] with his family and ongoing outpt tx. MATHEUS Flaherty
--- NOTE | 2025-02-15 11:10 | PM.PN.IH.1 ---
Subjective Subjective Date Patient Seen: 02/15/25 Time Patient Seen: 11:10 Interval history: No acute issues. Tolerating dressing changes and pain is well controlled. Exam Vital Signs (past 8 hours): - 02/15/25 06:00 Pulse Oximetry 98 Oxygen Delivery Method Room Air Oxygen Delivery Method Room Air Oxygen Flow Rate 0 Narrative Exam Narrative: Const General: cooperative, comfortable and alert, awake and oriented x3 Resp: Effort & Inspection: normal respiratory effort and able to speak in complete sentences Cardio: regular rate GI: Soft, nondistended, nontender no rebound or guarding : deferred Integumentary: Bilateral lower extremity dressing intact. Neuro: patient alert, patient awake and patient oriented x3 Extrem: normal to inspection Psych: mental status grossly normal, judgment good Objective Labs 02/15/25 06:54 02/15/25 06:54 Labs: Laboratory Results - last 24 hr 02/15/25 06:54 WBC 5.4 RBC 3.57 L Hgb 11.1 L Hct 33.4 L MCV 93.5 MCH 31.0 MCHC 33.2 RDW 12.7 Plt Count 465 H Neut % (Auto) 51.5 Lymph % (Auto) 32.4 [place] % (Auto) 9.2 Eos % (Auto) 4.4 H Baso % (Auto) 2.5 H Neut # (Auto) 2800 Lymph # (Auto) 1800 [place] # (Auto) 500 Eos # (Auto) 200 Baso # (Auto) 100 Sodium 137 Potassium 4.4 Chloride 105 Carbon Dioxide 27 BUN 18 Creatinine 1.13 Estimated GFR > 60 BUN/Creatinine Ratio 15.9 Glucose 99 Calcium 9.2 [facility] Medical History Suppurative hidradenitis Social History household members: family Smoking Status: Never smoker alcohol intake: current Assessment & Plan Assessment & Plan narrative: This is a 34-year-old gentleman with a history of hidradenitis of bilateral lower extremity who presented with abscesses of bilateral lower extremities. Patient is now incision and drainage of abscesses and delayed primary closure of the large left lower extremity wound. -plan for follow-up in the next 2 weeks in order to remove sutures and drains. -okay to discharge patient to the facility today -continue multimodal pain control as an outpatient. PROFEE Environmental Health Nurse Document charge(s): Yes Charge Codes Subsequent inpatient/observation care: [id number]
--- NOTE | 2025-02-15 12:29 | PC.NURSE ---
Pt discharged to [facility] rehab at 1200, escorted off floor in wheelchair accompanied by facility designee. PICC line removed, discharge teaching included in packet for facility. Report called to Amanda ([phone]) at 1210. All belongings left with patient.
== END 2025-02-15 12:31 | DRG 364 ==
LOC: ED 23:37 → AC 02-06 02:01
PROVIDERS: Internal Medicine; Surgery; Admitting Provider Internal Medicine; Emergency Provider Emergency Medicine; Visit Provider Internal Medicine
PROC: 0JBM0ZZ Excision of Left Upper Leg Subcutaneous Tissue and Fascia, Open Approach (ICD-10-PCS; CPT 46040; principal; 2025-02-06 15:30)
PROC: 0JD90ZZ Extraction of Buttock Subcutaneous Tissue and Fascia, Open Approach (ICD-10-PCS; CPT 46040; principal; 2025-02-12 15:15)
DX: L73.2 Hidradenitis suppurativa (principal); L02.31 Cutaneous abscess of buttock; L03.317 Cellulitis of buttock; B96.5 Pseudomonas (aeruginosa) (mallei) (pseudomallei) as the cause of diseases classified elsewhere
CPT/HCPCS: 11470; 36415; 36569; 74177; 80048; 80053; 83605; 85025; 87040; 87070; 87075; 87077; 87186; 87205; 96365; 96366; 96367; 96375; 99222; 99233; 99284; J0131; J0696; J1100; J1171; J1650; J1885; J2185; J2405; J2543; J2704; J3010; J3370; J3410; Q9967

== ENCOUNTER → 2025-02-18 08:21 | Outpatient (CLI) | payer OTHER, SELFPAY ==
[2025-02-06 00:56] VITALS: BMI 20.9
== END ==
LOC: WC 08:24
PROVIDERS: Referring Provider Surgery; Visit Provider Surgery
DX: L73.2 Hidradenitis suppurativa (principal); S31.829A Unspecified open wound of left buttock, initial encounter; S31.501A Unspecified open wound of unspecified external genital organs, male, initial encounter
CPT/HCPCS: 99213

== ENCOUNTER 2025-07-31 16:57 | Inpatient (IN) | payer OTHER, SELFPAY ==
[2025-02-06 00:56] VITALS: BMI 20.9
[2025-07-31] VITALS (11 sets, daily range): BP systolic 105–137; BP diastolic 62–84; PULSE 80–106; RESP 16; TEMP 36.9–37.6; O2SAT 97–100; BMI 22.8
--- NOTE | 2025-07-31 18:17 | ED.SKABFB ---
HPI - Skin/Abscess/Foreign Bdy <Lorena Mobley PA-C - Last Filed: 07/31/25 19:47> General Chief complaint: Skin/Abscess/Foreign Body Stated complaint: HS Chronic skin condition inflamed. Time Seen by Provider: 07/31/25 17:18 Source: patient Mode of arrival: Ambulatory Limitations: no limitations History of Present Illness HPI narrative: Lito Pinto is a pleasant 35-year-old male with a past medical history of significant hidradenitis suppurativa for which he has been on oral clindamycin 500 mg b.i.d. for the last 2 years in addition to topical clindamycin for his face who presents to the emergency department for HS flare x1 week. 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 He has been dealing with HS for about 4 years and has had surgical intervention at this hospital in January 28 of this year. He deals with HS on his asif, bilateral axillary region, bilateral groin region, and left glute. About 1 week ago his HS got significantly worse. His oral clindamycin was stopped and he was started on doxycycline and metronidazole instead from the ship telemedicine physician. Patient is here today with draining wounds in his groin and axillary regions and he has most significant HS on his left buttocks. He denies fevers or chills, chest pain or shortness of breath, dysuria constipation or diarrhea. No vomiting. He does report an elevated heart rate. He is allergic to penicillins. He was referred to this hospital for further evaluation of his skin lesions, they also request advice if he can safely continue the clindamycin which has been taken for 2 years, they do recommend bacterial and fungal cultures with medication sensitivities due to his prolonged antibiotic use. Related Data Home Medications ?Medication ?Instructions ?Recorded ?Confirmed clindamycin HCl 300 mg capsule 300 mg PO Q12H 07/31/25 07/31/25 Previous Rx's ?Medication ?Instructions ?Recorded acetaminophen 325 mg tablet 975 mg (3 x 325 mg) PO Q8H #30 tabs 02/15/25 Allergies Allergy/AdvReac Type Severity Reaction Status Date / Time Penicillins Allergy Severe Hives Verified 07/31/25 17:02 Review of Systems <Lorena Mobley PA-C - Last Filed: 07/31/25 19:47> Review of Systems ROS Unobtainable: All systems reviewed & are unremarkable except as noted in HPI and below Patient History <Lorena Mobley PA-C - Last Filed: 07/31/25 19:47> Medical History Suppurative hidradenitis Social History household members: family Smoking Status: Unknown if ever smoked alcohol intake: current Exam <Lorena Mobley PA-C - Last Filed: 07/31/25 19:47> Narrative Exam Narrative: GENERAL: 35 year old male patient appears stated age. Well-developed patient, in no acute distress. HEAD: Atraumatic. Normocephalic. EYES: No scleral icterus. No injection or drainage. NECK: Trachea midline. Cervical ROM intact. CARDIOVASCULAR: Increased rate and regular rhythm. RESPIRATORY: ?Nonlabored respirations. ?Speaking in clear, full sentences. ?Clear to auscultation. Breath sounds equal bilaterally. No wheezes, rales, or rhonchi. ? GASTROINTESTINAL: Abdomen soft, non-tender, nondistended. Normal circumcised penis, no urethral drainage. EXTREMITIES: No LE edema. NEURO: AOx3. ?Clear speech. ?Moves all 4 extremities appropriately. SKIN: Significant hidradenitis suppurativa affecting the facial asif, bilateral axillas, bilateral inguinal folds, perineum and left buttocks. Patient has most significant skin thickening, induration, tenderness, drainage from the left buttocks extending into the perineum and on either sides of the groin folds. There is also skin thickening tenderness and drainage in the bilateral axillary regions. Initial Vital Signs Initial Vital Signs: Vital Signs Temperature 98.4 F 07/31/25 17:02 Pulse Rate 106 H 07/31/25 17:02 Respiratory Rate 16 07/31/25 17:02 Blood Pressure 132/73 07/31/25 17:02 Pulse Oximetry 100 07/31/25 17:02 Oxygen Delivery Method Room Air 07/31/25 17:02 <Denise Ahn DO - Last Filed: 08/01/25 01:37> Initial Vital Signs Initial Vital Signs: Vital Signs Temperature 98.4 F 07/31/25 17:02 Pulse Rate 106 H 07/31/25 17:02 Respiratory Rate 16 07/31/25 17:02 Blood Pressure 132/73 07/31/25 17:02 Pulse Oximetry 100 07/31/25 17:02 Oxygen Delivery Method Room Air 07/31/25 17:02 Course <Lorena Mobley PA-C - Last Filed: 07/31/25 19:47> Orders Ordered: ED Orders 07/31/25 18:30 CBC Auto Diff [Complete Blood Count AUTO DIFF] Stat CMP [Comprehensive Metabolic Panel] Stat CRP [C-Reactive Protein Quant] Stat ESR [Erythrocyte Sedimentation Rate] Stat Lactate (Lactic Acid) Stat 07/31/25 18:43 CT abdomen pelvis w con Stat XR chest 1V Stat 07/31/25 19:22 Blood Culture Stat 07/31/25 21:00 Wound Culture and Gram Stain Stat Acetaminophen (Acetaminophen 325 Mg Tablet) 650 mg PO Q6H PRN PRN Reason: Fever/Mild Pain (1-3) Hydrocodone Bitart/Acetaminophen (Hydrocodone/Acet 5/325 Tablet) 1 tab PO Q4H PRN PRN Reason: Pain, Moderate (4-6) Last Admin: 08/01/25 00:55 Dose: 1 tab Documented By: Sodium Chloride (Normal Saline 0.9%) 1,000 mls @ 100 mls/hr IV CONT [facility] Last Admin: 08/01/25 00:59 Dose: 100 mls/hr Documented By: Clindamycin Phosphate (Cleocin) 900 mg in 50 mls @ 50 mls/hr IV Q6H [facility] Last Infusion: 08/01/25 01:06 Dose: Infused Documented By: Admin: 07/31/25 21:52 Dose: 50 mls/hr Documented By: CY Meropenem 1 gm/ Sodium (Chloride) 100 mls @ 200 mls/hr IV Q8H [facility] Last Infusion: 07/31/25 23:03 Dose: Infused Documented By: Admin: 07/31/25 21:52 Dose: 200 mls/hr Documented By: SH Vancomycin HCl (Vancomycin) 1,250 mg in 250 mls @ 250 mls/hr IV Q12H [facility] Naloxone HCl (Naloxone 0.4 Mg/Ml Vial) 0.2 mg IV Q2MIN PRN PRN Reason: Opiate Reversal Ondansetron HCl (Ondansetron 4 Mg/2 Ml Inj) 4 mg IV Q8HR PRN PRN Reason: Nausea And Vomiting Vancomycin HCl (Vancomycin Per Pharmacy) 1 request MISC NOW PRN PRN Reason: PROTOCOL Discontinued Medications Ceftriaxone Sodium 1,000 mg/ (Sodium Chloride) 100 mls @ 200 mls/hr IV NOW ONE Stop: 07/31/25 18:58 Last Infusion: 07/31/25 20:33 Dose: Infused Documented By: Admin: 07/31/25 19:57 Dose: 200 mls/hr Documented By: LAM Vancomycin HCl/Dextrose (Vancomycin) 1,500 mg in 300 mls @ 200 mls/hr IV NOW ONE Stop: 07/31/25 20:26 Last Infusion: 07/31/25 22:20 Dose: Infused Documented By: Admin: 07/31/25 20:21 Dose: 200 mls/hr Documented By: CY Meropenem 1,000 mg/ Sodium (Chloride) 100 mls @ 200 mls/hr IV NOW ONE Stop: 07/31/25 21:13 Last Admin: 07/31/25 21:53 Dose: Not Given Documented By: Clindamycin Phosphate (Cleocin) 900 mg in 50 mls @ 50 mls/hr IV Q6H [facility] Last Admin: 07/31/25 21:54 Dose: Not Given Documented By: Vital Signs Vital signs: Vital Signs - 8 hr 07/31/25 20:00 07/31/25 20:01 07/31/25 20:01 Pulse Rate 88 83 Blood Pressure 112/78 Pulse Oximetry 100 99 07/31/25 20:30 07/31/25 20:31 07/31/25 20:31 Pulse Rate 91 H 86 Blood Pressure 127/78 Pulse Oximetry 99 98 07/31/25 21:00 07/31/25 21:00 07/31/25 21:30 Pulse Rate 86 Blood Pressure 116/71 106/62 Pulse Oximetry 98 07/31/25 21:30 Pulse Rate 81 Blood Pressure Pulse Oximetry 98 <Denise Ahn, - Last Filed: 08/01/25 01:37> Orders Ordered: ED Orders 07/31/25 18:30 CBC Auto Diff [Complete Blood Count AUTO DIFF] Stat CMP [Comprehensive Metabolic Panel] Stat CRP [C-Reactive Protein Quant] Stat ESR [Erythrocyte Sedimentation Rate] Stat Lactate (Lactic Acid) Stat 07/31/25 18:43 CT abdomen pelvis w con Stat XR chest 1V Stat 07/31/25 19:22 Blood Culture Stat 07/31/25 21:00 Wound Culture and Gram Stain Stat Acetaminophen (Acetaminophen 325 Mg Tablet) 650 mg PO Q6H PRN PRN Reason: Fever/Mild Pain (1-3) Hydrocodone Bitart/Acetaminophen (Hydrocodone/Acet 5/325 Tablet) 1 tab PO Q4H PRN PRN Reason: Pain, Moderate (4-6) Last Admin: 08/01/25 00:55 Dose: 1 tab Documented By: Sodium Chloride (Normal Saline 0.9%) 1,000 mls @ 100 mls/hr IV CONT [facility] Last Admin: 08/01/25 00:59 Dose: 100 mls/hr Documented By: Clindamycin Phosphate (Cleocin) 900 mg in 50 mls @ 50 mls/hr IV Q6H [facility] Last Infusion: 08/01/25 01:06 Dose: Infused Documented By: Admin: 07/31/25 21:52 Dose: 50 mls/hr Documented By: CY Meropenem 1 gm/ Sodium (Chloride) 100 mls @ 200 mls/hr IV Q8H [facility] Last Infusion: 07/31/25 23:03 Dose: Infused Documented By: Admin: 07/31/25 21:52 Dose: 200 mls/hr Documented By: CY Vancomycin HCl (Vancomycin) 1,250 mg in 250 mls @ 250 mls/hr IV Q12H [facility] Naloxone HCl (Naloxone 0.4 Mg/Ml Vial) 0.2 mg IV Q2MIN PRN PRN Reason: Opiate Reversal Ondansetron HCl (Ondansetron 4 Mg/2 Ml Inj) 4 mg IV Q8HR PRN PRN Reason: Nausea And Vomiting Vancomycin HCl (Vancomycin Per Pharmacy) 1 request MISC NOW PRN PRN Reason: PROTOCOL Discontinued Medications Ceftriaxone Sodium 1,000 mg/ (Sodium Chloride) 100 mls @ 200 mls/hr IV NOW ONE Stop: 07/31/25 18:58 Last Infusion: 07/31/25 20:33 Dose: Infused Documented By: Admin: 07/31/25 19:57 Dose: 200 mls/hr Documented By: LAM Vancomycin HCl/Dextrose (Vancomycin) 1,500 mg in 300 mls @ 200 mls/hr IV NOW ONE Stop: 07/31/25 20:26 Last Infusion: 07/31/25 22:20 Dose: Infused Documented By: Admin: 07/31/25 20:21 Dose: 200 mls/hr Documented By: CY Meropenem 1,000 mg/ Sodium (Chloride) 100 mls @ 200 mls/hr IV NOW ONE Stop: 07/31/25 21:13 Last Admin: 07/31/25 21:53 Dose: Not Given Documented By: Clindamycin Phosphate (Cleocin) 900 mg in 50 mls @ 50 mls/hr IV Q6H [facility] Last Admin: 07/31/25 21:54 Dose: Not Given Documented By: Vital Signs Vital signs: Vital Signs - 8 hr 07/31/25 20:00 07/31/25 20:01 07/31/25 20:01 Pulse Rate 88 83 Blood Pressure 112/78 Pulse Oximetry 100 99 07/31/25 20:30 07/31/25 20:31 07/31/25 20:31 Pulse Rate 91 H 86 Blood Pressure 127/78 Pulse Oximetry 99 98 07/31/25 21:00 07/31/25 21:00 07/31/25 21:30 Pulse Rate 86 Blood Pressure 116/71 106/62 Pulse Oximetry 98 07/31/25 21:30 Pulse Rate 81 Blood Pressure Pulse Oximetry 98 MDM - Skin/Abscess/Foreign Bdy <Lorena Mobley PA-C - Last Filed: 07/31/25 19:47> Medical Records Attestation: I reviewed the patient's medical records. Lab Data 07/31/25 18:30 07/31/25 18:30 Labs: Lab Results 07/31/25 Range/Units 18:30 WBC 13.7 H (4.5-11.0) X10^3/uL RBC 3.84 L (4.5-5.9) X10^6/uL Hgb 11.7 L (13.5-17.5) g/dL Hct 34.8 L (41-53) % MCV 90.7 (80-100) fL MCH 30.4 (26-34) PG MCHC 33.5 (30-36) % RDW 13.7 (11.6-14.8) % Plt Count 593 H (150-400) X10^3/uL Neut % (Auto) 73.5 (50-75) % Lymph % (Auto) 19.2 L (25-40) % Rooks % (Auto) 5.5 (3-14) % Eos % (Auto) 0.9 L (2-4) % Baso % (Auto) 0.9 (0-2) % Neut # (Auto) 48107 H (9380-2393) /uL Lymph # (Auto) 2600 (1091-4675) /uL Rooks # (Auto) 800 (0-900) /uL Eos # (Auto) 100 (0-450) /uL Baso # (Auto) 100 (0-100) /uL ESR 102 H (0-15) MM/HR Sodium 140 (137-145) mmol/L Potassium 4.1 (3.4-5.1) mmol/L Chloride 105 (98-107) mmol/L Carbon Dioxide 25 (22-32) mmol/L BUN 11 (9-20) mg/dL Creatinine 1.06 (0.66-1.25) mg/dL Estimated GFR > 60 (>60) mL/min BUN/Creatinine Ratio 10.4 (6-22) Glucose 87 (70-99) mg/dL Lactate 1.1 (0.7-2.1) mmol/L Calcium 9.3 (8.4-10.2) mg/dL Total Bilirubin 0.3 (0.2-1.3) mg/dL AST 25 (17-59) IU/L ALT 13 (<50) IU/L Alkaline Phosphatase 92 (38-126) U/L C-Reactive Protein 4.7 H (<1.0) mg/dL Total Protein 10.2 H (6.3-8.2) g/dL Albumin 4.2 (3.5-5.0) g/dL Globulin 6.0 H (1.7-4.1) g/dL Albumin/Globulin Ratio 0.7 L (1.0-2.8) MDM Narrative Medical decision making narrative: 35-year-old male with a past medical history of significant hidradenitis suppurativa for which he has been on oral clindamycin 500 mg b.i.d. for the last 2 years in addition to topical clindamycin for his face who presents to the emergency department for HS flare x1 week. Differential diagnosis includes but is not limited to hydradenitis suppurativa flare, abscess, Yobany's gangrene, buttocks abscess, cellulitis, etc. On exam patient is in no acute distress, nontoxic appearing, vital signs appropriate except for elevated heart rate 106. He is extremely significant hidradenitis suppurativa and both under arms, bilateral groin, left buttocks, and mildly on the face as well. This is required surgical drainage in the past. We will obtain baseline lab work, CT abdomen and pelvis for further evaluation, treat with fluids. Case discussed with the nighttime physician due to shift change. LRINEC score is 1. <Denise Ahn DO - Last Filed: 08/01/25 01:37> Lab Data Labs: Lab Results 07/31/25 Range/Units 18:30 WBC 13.7 H (4.5-11.0) X10^3/uL RBC 3.84 L (4.5-5.9) X10^6/uL Hgb 11.7 L (13.5-17.5) g/dL Hct 34.8 L (41-53) % MCV 90.7 (80-100) fL MCH 30.4 (26-34) PG MCHC 33.5 (30-36) % RDW 13.7 (11.6-14.8) % Plt Count 593 H (150-400) X10^3/uL Neut % (Auto) 73.5 (50-75) % Lymph % (Auto) 19.2 L (25-40) % Rooks % (Auto) 5.5 (3-14) % Eos % (Auto) 0.9 L (2-4) % Baso % (Auto) 0.9 (0-2) % Neut # (Auto) 04944 H (0654-4150) /uL Lymph # (Auto) 2600 (7686-2872) /uL Rooks # (Auto) 800 (0-900) /uL Eos # (Auto) 100 (0-450) /uL Baso # (Auto) 100 (0-100) /uL ESR 102 H (0-15) MM/HR Sodium 140 (137-145) mmol/L Potassium 4.1 (3.4-5.1) mmol/L Chloride 105 (98-107) mmol/L Carbon Dioxide 25 (22-32) mmol/L BUN 11 (9-20) mg/dL Creatinine 1.06 (0.66-1.25) mg/dL Estimated GFR > 60 (>60) mL/min BUN/Creatinine Ratio 10.4 (6-22) Glucose 87 (70-99) mg/dL Lactate 1.1 (0.7-2.1) mmol/L Calcium 9.3 (8.4-10.2) mg/dL Total Bilirubin 0.3 (0.2-1.3) mg/dL AST 25 (17-59) IU/L ALT 13 (<50) IU/L Alkaline Phosphatase 92 (38-126) U/L C-Reactive Protein 4.7 H (<1.0) mg/dL Total Protein 10.2 H (6.3-8.2) g/dL Albumin 4.2 (3.5-5.0) g/dL Globulin 6.0 H (1.7-4.1) g/dL Albumin/Globulin Ratio 0.7 L (1.0-2.8) Imaging Data CT scan - abdomen/pelvis: Radiologist's Impression: PROCEDURE: CT ABDOMEN PELVIS W CON INDICATIONS: HS in groin, left buttocks, concern abscess TECHNIQUE: After the administration of intravenous contrast, axial sections acquired from the lung bases to the pubic symphysis. Coronal and sagittal reformats were performed. For radiation dose reduction, the following was used: automated exposure control, adjustment of mA and/or kV according to patient size. COMPARISON: [facility], CT, CT ABDOMEN PELVIS W CON, 02/05/2025, 20:05. FINDINGS: Image quality: Diagnostic. Lower Chest: No significant findings. ABDOMEN: Liver: No solid mass. Mild hepatic steatosis. Gallbladder: No radiopaque gallstones or wall thickening. Biliary ducts: No biliary dilation. Pancreas: No ductal dilation. Spleen: Size is within normal limits. Adrenal Glands: No adrenal nodules. Kidneys and Ureters: No hydronephrosis. No solid mass. No complex renal cystic lesion which requires follow up. Stomach and Bowel: Normal colonic caliber, without significant wall thickening. No evidence for small bowel obstruction or associated inflammatory changes. Normal appendix. Peritoneum: No abnormal intraperitoneal fluid. No free air. Ventral Wall: There is a fat-containing umbilical hernia without acute inflammation. Abdominal Nodes: No retroperitoneal or mesenteric adenopathy by size criteria. Vessels: Aorta and inferior vena cava are normal in size. PELVIS: Pelvic Organs: Unremarkable. Bladder: No bladder wall thickening, accounting for underdistention. Pelvic Nodes: Reactive left greater than right inguinal lymph nodes.. Miscellaneous: No inguinal hernias are seen. Bones: No aggressive osseous abnormality. Redemonstration moderate skin thickening of the bilateral buttocks and perineal region more pronounced on the left. Tiny locule gas noted in the medial left buttocks region (152/series 2). No organized fluid collections identified. No deep tissue soft tissue gas. Visualized scrotum appears unremarkable. IMPRESSION: Moderate skin thickening of the bilateral buttocks and perineal region which is more severe on the left side. Findings may represent cellulitis although tiny punctate of gas noted in the medial left buttocks region. Infection from gas-forming organism versus early Yobany's gangrene not excluded. Other chronic/non-acute findings as above. Dictated by: Chas Winter M.D. on 07/31/2025 at 19:37 Approved by: Chas Winter M.D. on 07/31/2025 at 19:45 Chest x-ray: Radiologist's Impression: PROCEDURE: XR CHEST 1V INDICATIONS: systemic skin infection TECHNIQUE: One view of the chest was acquired. COMPARISON: [facility], , XR CHEST FOR PICC 1V, 02/11/2025, 10:27. FINDINGS: Surgical changes and devices: None. Lungs and pleura: Lungs are clear. No pleural effusions or pneumothorax. Mediastinum: Mediastinal contours appear normal. Heart size is normal. Bones and chest wall: No suspicious bony lesions. Overlying soft tissues appear unremarkable. IMPRESSION: No acute cardiopulmonary abnormality is seen. Dictated by: Erica Suarez M.D. on 07/31/2025 at 19:39 MDM Narrative Medical decision making narrative: 35-year-old male with a past medical history of significant hidradenitis suppurativa for which he has been on oral clindamycin 500 mg b.i.d. for the last 2 years in addition to topical clindamycin for his face who presents to the emergency department for HS flare x1 week. Differential diagnosis includes but is not limited to hydradenitis suppurativa flare, abscess, Yobany's gangrene, buttocks abscess, cellulitis, etc. On exam patient is in no acute distress, nontoxic appearing, vital signs appropriate except for elevated heart rate 106. He is extremely significant hidradenitis suppurativa and both under arms, bilateral groin, left buttocks, and mildly on the face as well. This is required surgical drainage in the past. We will obtain baseline lab work, CT abdomen and pelvis for further evaluation, treat with fluids. Case discussed with the nighttime physician due to shift change. LRINEC score is 1. Dr. Ahn, patient signed out to me by Lorena's his go I have seen evaluated patient myself. He has multiple old incision sites on his buttock and perineal region. His left testicle has an incision site that is draining but his scrotum is actually non erythematous nontender, culture taken from this area. I do not appreciate any obvious abscess but there are some small areas on his buttock and perineal region. Some mild erythema. Blood work does show leukocytosis of 13 but normal lactic acid. He has been on outpatient antibiotics followed by Dermatology in [place]. He overall appears very well nontoxic. Vitals are very stable. Considered Yobany's gangrene and necrotizing fasciitis. CT does show a gas forming organism but it is not in the deep tissue and it is in the left buttock. Scrotum appears unremarkable. 2044 Dr. Parkinson on-call surgery updated patient's symptoms test results he is familiar with the patient. Does not think that this is necrotizing fasciitis or Yobany's gangrene is likely tracks which I agree with. No need for emergent surgery. Agrees to follow along and recommended admitting to the hospitalist for IV antibiotics [id number] Dr. Allen updated on symptoms test results Dr. Navarro updated on symptoms specialist recommendations and accepts Discharge Plan Departure Patient Disposition: Admitted As Inpatient Clinical Impression: Hidradenitis suppurativa of anogenital region Cellulitis Qualifiers: Site of cellulitis: buttock Qualified Code(s): L03.317 - Cellulitis of buttock Admit Date/Time: 07/31/25 21:39 Admit Provider: Pedro Navarro
--- NOTE | 2025-07-31 18:43 | DI.CT.S_ITS ---
PROCEDURE: CT ABDOMEN PELVIS W CON INDICATIONS: HS in groin, left buttocks, concern abscess TECHNIQUE: After the administration of intravenous contrast, axial sections acquired from the lung bases to the pubic symphysis. Coronal and sagittal reformats were performed. For radiation dose reduction, the following was used: automated exposure control, adjustment of mA and/or kV according to patient size. COMPARISON: [facility], CT, CT ABDOMEN PELVIS W CON, 02/05/2025, 20:05. FINDINGS: Image quality: Diagnostic. Lower Chest: No significant findings. ABDOMEN: Liver: No solid mass. Mild hepatic steatosis. Gallbladder: No radiopaque gallstones or wall thickening. Biliary ducts: No biliary dilation. Pancreas: No ductal dilation. Spleen: Size is within normal limits. Adrenal Glands: No adrenal nodules. Kidneys and Ureters: No hydronephrosis. No solid mass. No complex renal cystic lesion which requires follow up. Stomach and Bowel: Normal colonic caliber, without significant wall thickening. No evidence for small bowel obstruction or associated inflammatory changes. Normal appendix. Peritoneum: No abnormal intraperitoneal fluid. No free air. Ventral Wall: There is a fat-containing umbilical hernia without acute inflammation. Abdominal Nodes: No retroperitoneal or mesenteric adenopathy by size criteria. Vessels: Aorta and inferior vena cava are normal in size. PELVIS: Pelvic Organs: Unremarkable. Bladder: No bladder wall thickening, accounting for underdistention. Pelvic Nodes: Reactive left greater than right inguinal lymph nodes.. Miscellaneous: No inguinal hernias are seen. Bones: No aggressive osseous abnormality. Redemonstration moderate skin thickening of the bilateral buttocks and perineal region more pronounced on the left. Tiny locule gas noted in the medial left buttocks region (152/series 2). No organized fluid collections identified. No deep tissue soft tissue gas. Visualized scrotum appears unremarkable. IMPRESSION: Moderate skin thickening of the bilateral buttocks and perineal region which is more severe on the left side. Findings may represent cellulitis although tiny punctate of gas noted in the medial left buttocks region. Infection from gas-forming organism versus early Yobany's gangrene not excluded. Other chronic/non-acute findings as above. Dictated by: Chas Winter M.D. on 07/31/2025 at 19:37 Approved by: Chas Winter M.D. on 07/31/2025 at 19:45
--- NOTE | 2025-07-31 18:43 | DI.RAD.S_ITS ---
PROCEDURE: XR CHEST 1V INDICATIONS: systemic skin infection TECHNIQUE: One view of the chest was acquired. COMPARISON: [facility], CR, XR CHEST FOR PICC 1V, 02/11/2025, 10:27. FINDINGS: Surgical changes and devices: None. Lungs and pleura: Lungs are clear. No pleural effusions or pneumothorax. Mediastinum: Mediastinal contours appear normal. Heart size is normal. Bones and chest wall: No suspicious bony lesions. Overlying soft tissues appear unremarkable. IMPRESSION: No acute cardiopulmonary abnormality is seen. Dictated by: Erica Suarez M.D. on 07/31/2025 at 19:39 Approved by: Erica Suarez M.D. on 07/31/2025 at 19:39
[2025-07-31 18:50] LABS: Add Manual Diff / Slide Review NO; Hematocrit 34.8 % (41-53); Hemoglobin 11.7 g/dL (13.5-17.5); Lymphocytes Absolute Auto 2600 /uL (1100-4500); Mean Corpuscular HGB Conc 33.5 % (30-36); Mean Corpuscular Hemoglobin 30.4 PG (26-34); Mean Corpuscular Volume 90.7 fL (80-100); Platelet Count 593 X10^3/uL (150-400)
[2025-07-31 19:10] LABS: Lactate (Lactic Acid) 1.1 mmol/L (0.7-2.1)
[2025-07-31 19:13] LABS: Alanine Aminotransferase 13 IU/L (<50); Albumin 4.2 g/dL (3.5-5.0); Albumin Globulin Ratio 0.7 (1.0-2.8); Alkaline Phosphatase 92 U/L (38-126); Blood Urea Nitrogen 11 mg/dL (9-20); Calcium 9.3 mg/dL (8.4-10.2); Carbon Dioxide 25 mmol/L (22-32); Chloride 105 mmol/L (98-107); Estimated Glomerular Filt Rate > 60 mL/min (>60); Globulin 6.0 g/dL (1.7-4.1); Glucose 87 mg/dL (70-99); HEMOLYSIS < 15 (0-50); Potassium 4.1 mmol/L (3.4-5.1); Sodium 140 mmol/L (137-145); Total Protein 10.2 g/dL (6.3-8.2)
--- NOTE | 2025-07-31 19:17 | W.PC.EDHO ---
Hand off shift report received from Cynthia Lovell RN
[2025-07-31] MEDS: VANCOMYCIN 1,500 MG/300 ML PIGGYBACK 200 MG IV (20:21)
[2025-07-31] MEDS: MEROPENEM 1 GM in SODIUM CHLORIDE 0.9% 100 ML IV (21:52)
[2025-07-31] MEDS: CLINDAMYCIN 900 MG/50 ML PIGGYBACK 50 MG IV (21:52)
--- NOTE | 2025-07-31 22:42 | W.PC.EDHO ---
Hand off report given to SPIKE Sultana (@[id number]). SPIKE Sultana asked that ED insert a 2nd IV due to the amount of incompatible medications that pt is receiving.
--- NOTE | 2025-07-31 23:20 | P.HP_ITS ---
History of Present Illness History of Present Illness Date Patient Seen: 07/31/25 Time Patient Seen: 23:20 Chief complaint: HS Chronic skin condition inflamed. Narrative: 35-year-old male with past medical history of hidradenitis suppurativa that affects multiple area on his body and most recently January 2025 the patient required surgical intervention by surgeon presents today with recurrent lesion in his bilateral groin area and buttocks. Per the patient's report, over the last week, he noticed new lesions on his groin area and there is increased pain and induration on his left buttocks. The patient states that chronically his scrotal area also has some drainage. The patient however denies any fever or chills. Denies any nausea, vomiting, diarrhea, chest pain or shortness of breath. The patient gets concerned of worsening infection and hence presents to our ER today. In the emergency room, the patient was hemodynamically stable without sepsis. Labs were relatively benign except for WBC of 13 with normal lactic acid of 1.1. CT scan of the abdomen and pelvics shows moderate skin thickening of the bilateral buttocks and perineal region which is severe on the left side finding may represent cellulitis with tiny punctate of gas noted on the medial left buttocks region infection from gas-forming organism versus early 40 years gangrene cannot be excluded. ER physician did discuss the finding with Dr. Parkinson our general surgeon who knows the patient well from last January who recommend that we can admit the patient here for IV antibiotics. Dr. Parkinson does not think it is gas gangrene at this point. IV vancomycin, clindamycin and meropenem started. [facility] Medical History Suppurative hidradenitis Social History household members: family alcohol intake: current Meds Home Medications and Allergies Home Medications ?Medication ?Instructions ?Recorded ?Confirmed ?Type acetaminophen 325 mg tablet 975 mg (3 x 325 mg) PO Q8H #30 tabs 02/15/25 Rx calcium carbonate 500 mg (2.5 x 200 mg calcium (500 02/15/25 Rx mg)) PO PRN PRN Dyspepsia #30 tabs gabapentin 100 mg capsule 200 mg (2 x 100 mg) PO TID # 30 caps 02/15/25 Rx hydromorphone 2 mg tablet 4 mg (2 x 2 mg) PO Q4HR PRN Pain, 02/15/25 Rx Severe (7-10) #30 tabs Allergies Allergy/AdvReac Type Severity Reaction Status Date / Time Penicillins Allergy Severe Hives Verified 07/31/25 17:02 Review of Systems Review of Systems ROS: Yes All systems reviewed with the patient and are negative except as otherwise documented Exam Vital Signs (past 8 hours): - 07/31/25 17:02 Temperature 98.4 F Pulse Rate 106 H Respiratory Rate 16 Blood Pressure 132/73 Pulse Oximetry 100 Oxygen Delivery Method Room Air Oxygen Delivery Method Room Air Narrative Exam Narrative: Physical Exam: GENERAL: The patient is not in any acute distressed. Awake and alert. HEENT: Nonicteric sclerae, PERRLA, EOMI. Oropharynx clear. Moist mucous membranes. Conjunctivae appear well perfused. HEART: Regular rate and rhythm without murmurs. No lower extremities edema. LUNGS: Clear to auscultation bilaterally. No wheezing, crackles or rhonchi ABDOMEN: Soft, positive bowel sounds, nontender. SKIN: Lesion noted in left glutial area with also bilatearl scrotal areas with some drainage. Othewrise No rash, no excessive bruising, petechiae, or purpura. NEUROLOGIC: AxO x 3. Cranial nerves II-XII intact without motor/sensory deficit. Objective Labs 07/31/25 18:30 07/31/25 18:30 Labs: Laboratory Results - last 24 hr 07/31/25 18:30 WBC 13.7 H RBC 3.84 L Hgb 11.7 L Hct 34.8 L MCV 90.7 MCH 30.4 MCHC 33.5 RDW 13.7 Plt Count 593 H Neut % (Auto) 73.5 Lymph % (Auto) 19.2 L [place] % (Auto) 5.5 Eos % (Auto) 0.9 L Baso % (Auto) 0.9 Neut # (Auto) 16841 H Lymph # (Auto) 2600 [place] # (Auto) 800 Eos # (Auto) 100 Baso # (Auto) 100 ESR 102 H Sodium 140 Potassium 4.1 Chloride 105 Carbon Dioxide 25 BUN 11 Creatinine 1.06 Estimated GFR > 60 BUN/Creatinine Ratio 10.4 Glucose 87 Lactate 1.1 Calcium 9.3 Total Bilirubin 0.3 AST 25 ALT 13 Alkaline Phosphatase 92 C-Reactive Protein 4.7 H Total Protein 10.2 H Albumin 4.2 Globulin 6.0 H Albumin/Globulin Ratio 0.7 L Assessment & Plan Assessment & Plan narrative: Recurrent hidradenitis suppurativa involving the left gluteal area as well as bilateral groin. Admit the patient to medical inpatient.CT scan of the abdomen and pelvics shows moderate skin thickening of the bilateral buttocks and perineal region which is severe on the left side finding may represent cellulitis with tiny punctate of gas noted on the medial left buttocks region infection from gas-forming organism versus early 40 years gangrene cannot be excluded. ER physician did discuss the finding with Dr. Parkinson our general surgeon who knows the patient well from last January who recommend that we can admit the patient here for IV antibiotics. Dr. Parkinson does not think it is gas gangrene at this point. Continue IV vancomycin, clindamycin and meropenem. Of note the patient is not septic at this time. Lactic acid normal. Appreciate surgical intervention per general surgery Dr. Parkinson. Pain control. Leukocytosis. Likely due to above again not septic. Monitor for now. DVT prophylaxis SCDs and early ambulation. CODE STATUS full code. Disposition likely home in 2 days. - As the provider of this telehealth evaluation, requested by the patient's evaluating physician, I attest that I introduced myself to the patient, provided my credentials and determined that telemedicine via a real-time, 2 way interactive audio and video platform is an appropriate and effective means of providing this service. - I reviewed the patient's chart and had a discussion with the member of the patient's treatment team. - The patient and I mutually agreed with continuation of this evaluation via telemedicine. The patient consented for the telemedicine evaluation. - This virtual encounter was taken place from [place] by Dr. Pedro Navarro. The patient was evaluated at [facility]. The encounter was approximately 35 minutes. The nurse was present during the entire time of the encounter and was able assists with the stethoscope to listen to the patients. Time-Based Coding :: [TOTAL MINUTES] spent with patient and on the chart (including review of chart, obtaining history, exam, reviewing outside data, placing orders, documenting exam and treatment plan, and counseling patient) on [DATE].
--- NOTE | 2025-08-01 00:16 | PC.WOUNDPHOT ---
L buttock R inner thigh bilateral inner thighs L armpit R armpit scrotum
[2025-08-01] MEDS: SODIUM CHLORIDE 0.9% 1,000 ML 100 ML IV ×2 (00:59→10:52)
[2025-08-01] MEDS: CLINDAMYCIN 900 MG/50 ML PIGGYBACK 50 MG IV ×2 (04:30→09:39)
[2025-08-01] MEDS: MEROPENEM 1 GM in SODIUM CHLORIDE 0.9% 100 ML IV ×3 (05:56→21:07)
[2025-08-01] MEDS: VANCOMYCIN 1,250 MG/250 ML PIGGYBACK 250 MG IV (06:17)
[2025-08-01 07:12] LABS: Add Manual Diff / Slide Review NO; Hematocrit 29.8 % (41-53); Hemoglobin 10.1 g/dL (13.5-17.5); Lymphocytes Absolute Auto 3100 /uL (1100-4500); Mean Corpuscular HGB Conc 33.9 % (30-36); Mean Corpuscular Hemoglobin 31.0 PG (26-34); Mean Corpuscular Volume 91.3 fL (80-100); Platelet Count 467 X10^3/uL (150-400)
[2025-08-01 07:25] LABS: Blood Urea Nitrogen 11 mg/dL (9-20); Calcium 8.3 mg/dL (8.4-10.2); Carbon Dioxide 23 mmol/L (22-32); Chloride 106 mmol/L (98-107); Estimated Glomerular Filt Rate > 60 mL/min (>60); Glucose 90 mg/dL (70-99); HEMOLYSIS < 15 (0-50); Potassium 4.2 mmol/L (3.4-5.1); Sodium 137 mmol/L (137-145)
--- NOTE | 2025-08-01 08:40 | CM.DANOTE ---
Initial DCP Assessment Note. Review EMR and PT Interview. Met with patient at bedside to discuss discharge needs.PT is alert x 4 sitting up in bed.. No acute distress. Independent. 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 PCP: , [place], [place]. Summary & Plan:?35 y/o male arrived to ED c/o chronic skin issues. Plan: IV abx for 3-4 days then discharge home. Discharge Planning/Care Management CM Discharge Assessment Start: 07/31/25 22:36 Freq: Status: Active Protocol: Document 08/01/25 08:37 (Rec: 08/01/25 08:40 [id number]) Discharge Planning Assessment Assigned Discharge Najma Bob RN CM Health Information Technician Provider Dr. Duque, [place], [place]. Insurance Other (enter in Comment) Insurance Comment [employer] Self Insured. Advance Directives? No History Provided By Patient,Medical Record Has Patient been No admitted in last 30 days? Prior Living House Arrangements Household Members family Type of Public Transportation transporation used prior to admit Independent with ADL Yes 's Is patient alert and Yes oriented? Barriers to No Discharge Comment Per PT, he is working with a CM from the Ship [place]. Discharge Plan Home Referrals Initiated None needed Review Status In Process Please Provide Date 08/01/25 Initial DC Assessment Was Performed Next Review Type Continued Stay Review
[2025-08-01 11:00] VITALS: BP 114/73; PULSE 74; RESP 16; TEMP 37.6; O2SAT 96
--- NOTE | 2025-08-01 11:40 | PM.CN.IH.1 ---
History of Present Illness Consult details Date Patient Seen: 08/01/25 Time Patient Seen: 10:00 Chief complaint: HS Chronic skin condition inflamed. Reason for consult: Scrotal involvement of HS Narrative: 35 y/o M w/ long-standing history of HS that is typically managed w/ topical and oral Clindamycin presented to ER for evaluation of a flare up of his typical symptoms. He underwent a debridement of several abscesses in his perineum as well as the base of his right scrotum in January of 2025. He typically lives in [place] and is in the [facility] secondary to his occupation. He admits that his scrotum is now more involved as well as his bilateral groin by his disease. He otherwise denies any fevers, chills, nausea or vomiting. He is simply concerned because his wounds are draining more extensively than normal. His evaluation in the ER was notable for AFVSS, a WBC of 13.7, sCr of 1.[address] Abd/Pel that noted moderate skint hickening of his bilateral buttocks and perineal region with likely overlying cellulitis, although tiny punctate of gas was noted in the medial left buttocks region. Urology was consulted regarding further management of his scrotum. Meds Home Medications and Allergies Home Medications ?Medication ?Instructions ?Recorded ?Confirmed ?Type acetaminophen 325 mg tablet 975 mg (3 x 325 mg) PO Q8H #30 tabs 02/15/25 07/31/25 Rx clindamycin HCl 300 mg capsule 300 mg PO Q12H 07/31/25 07/31/25 History Allergies Allergy/AdvReac Type Severity Reaction Status Date / Time Penicillins Allergy Severe Hives Verified 07/31/25 17:02 Review of Systems Review of Systems Narrative: A complete ROS was completed with all pertinent positives and negatives documented in HPI. All other systems were reviewed and are negative. Exam Vital Signs (past 8 hours): - 08/01/25 11:00 Temperature 99.6 F Pulse Rate 74 Respiratory Rate 16 Blood Pressure 114/73 Pulse Oximetry 96 Oxygen Flow Rate 0 Oxygen Delivery Method Room Air Oxygen Flow Rate 0 Narrative Exam Narrative: GEN: Alert and oriented X3. No acute distress. Well-nourished. EYES: PERRLA, EOMI. HENT: Moist mucus membranes, no scleral icterus, normal neck ROM. RESP: Unlabored breathing, equal rise and fall of chest bilaterally, no cyanosis appreciated. CV: No peripheral edema, unremarkable heart rate. ABD: Soft, non-tender, non-distended, no palpable masses. : Unremarkable penis, no urethral discharge, no meatal stenosis. Bilaterally descended testicles, firm, no testicular masses, no intrascrotal fluid collections concerning for crepitus or abscesses. Changes consistent with HS as well as draining wounds along his lateral scrotum and groin region bilaterally. EXT: No edema, clubbing or cyanosis. SKIN: No rashes or lesions. NEURO: No focal neurologic deficits, CN II-XII grossly intact. PSYCH: Cooperative, appropriate mood and affect. Objective Labs 08/01/25 06:08 08/01/25 06:08 Labs: Laboratory Results - last 24 hr 07/31/25 08/01/25 18:30 06:08 WBC 13.7 H 11.8 H RBC 3.84 L 3.26 L Hgb 11.7 L 10.1 L Hct 34.8 L 29.8 L MCV 90.7 91.3 MCH 30.4 31.0 MCHC 33.5 33.9 RDW 13.7 13.7 Plt Count 593 H 467 H Neut % (Auto) 73.5 64.6 Lymph % (Auto) 19.2 L 25.9 [place] % (Auto) 5.5 6.5 Eos % (Auto) 0.9 L 1.8 L Baso % (Auto) 0.9 1.2 Neut # (Auto) 70272 H 7600 H Lymph # (Auto) 2600 3100 [place] # (Auto) 800 800 Eos # (Auto) 100 200 Baso # (Auto) 100 100 ESR 102 H Sodium 140 137 Potassium 4.1 4.2 Chloride 105 106 Carbon Dioxide 25 23 BUN 11 11 Creatinine 1.06 1.05 Estimated GFR > 60 > 60 BUN/Creatinine Ratio 10.4 10.5 Glucose 87 90 Lactate 1.1 Calcium 9.3 8.3 L Total Bilirubin 0.3 AST 25 ALT 13 Alkaline Phosphatase 92 C-Reactive Protein 4.7 H Total Protein 10.2 H Albumin 4.2 Globulin 6.0 H Albumin/Globulin Ratio 0.7 L [facility] Medical History Suppurative hidradenitis Social History household members: family Tobacco & Substance Use Smoking Status: Unknown if ever smoked alcohol intake: current Assessment & Plan Assessment and plan (1) Hidradenitis suppurativa of anogenital region: Status: Acute Plan: 35 y/o M w/ long-standing HS that is managed w/ topical and oral Clindamycin who was noted to have a flare-up of his disease over the last week. Exam notable for changes consistent with his HS along lateral scrotal edges and bilateral groin region with open wounds, however, no concern for Yobany's gangrene, crepitus or abscess formation. Recommend conservative management at this time. Appreciate assistance of the hospitalist team. No urgent Urological intervention necessary at this time. Time-Based Coding :: [TOTAL MINUTES] spent with patient and on the chart (including review of chart, obtaining history, exam, reviewing outside data, placing orders, documenting exam and treatment plan, and counseling patient) on [DATE]. PROFEE Charge Codes Inpatient or Observation consultation: [id number]
--- NOTE | 2025-08-01 14:51 | PM.CN.IH.1 ---
History of Present Illness Consult details Date Patient Seen: 08/01/25 Time Patient Seen: 14:30 Chief complaint: HS Chronic skin condition inflamed. Reason for consult: wound care Requesting provider: Carloz Ann Narrative: 35 y/o M w/ long-standing history of HS that is typically managed w/ topical and oral Clindamycin presented to ER for evaluation of a flare up of his typical symptoms. Past history is significant for a debridement of several abscesses in his perineum as well as the base of his right scrotum in January of 2025. 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 He admits that his scrotum is now more involved as well as his bilateral groin. He otherwise denies any fevers, chills, nausea or vomiting. He is simply concerned because his wounds are draining more extensively than normal. His evaluation in the ER was notable for AFVSS, a WBC of 13.7, sCr of 1.[address] Abd/Pel that noted moderate skin thickening of his bilateral buttocks and perineal region with likely overlying cellulitis, although tiny punctate of gas was noted in the medial left buttocks region. Urology was consulted regarding further management of his scrotum and no intervention deemed necessary for scrotal masses. At this time there is milky and purulent drainage from a large 5-6cm HS in the left medial perineal region that is tender to touch. The patient is trying to schedule out patient surgery with dermatology upon return to [place] and is also trying to get on biologic medication upon return. Pain is intermittent and often severe. Meds Home Medications and Allergies Home Medications ?Medication ?Instructions ?Recorded ?Confirmed ?Type acetaminophen 325 mg tablet 975 mg (3 x 325 mg) PO Q8H #30 tabs 02/15/25 07/31/25 Rx clindamycin HCl 300 mg capsule 300 mg PO Q12H 07/31/25 07/31/25 History Allergies Allergy/AdvReac Type Severity Reaction Status Date / Time Penicillins Allergy Severe Hives Verified 07/31/25 17:02 Exam Vital Signs (past 8 hours): - 08/01/25 11:00 Temperature 99.6 F Pulse Rate 74 Respiratory Rate 16 Blood Pressure 114/73 Pulse Oximetry 96 Oxygen Flow Rate 0 Oxygen Delivery Method Room Air Oxygen Flow Rate 0 Narrative Exam Narrative: GEN: Alert and oriented X3. No acute distress. Well-nourished. EYES: PERRLA, EOMI. HENT: Moist mucus membranes, no scleral icterus, normal neck ROM. RESP: Unlabored breathing, equal rise and fall of chest bilaterally, no cyanosis appreciated. CV: No peripheral edema, unremarkable heart rate. : Unremarkable penis, no urethral discharge, no meatal stenosis. Bilaterally descended testicles, firm, no testicular masses, no intrascrotal fluid collections concerning for crepitus or abscesses. Changes consistent with HS as well as draining wounds along his lateral scrotum and groin region bilaterally, largest of which is @ 5-6 cm along left medial perineal region with significant milky purulent drainage and tender on palpation EXT: No edema, clubbing or cyanosis. SKIN: No rashes or lesions. PSYCH: Cooperative, appropriate mood and affect. Objective Labs 08/01/25 06:08 08/01/25 06:08 Labs: Laboratory Results - last 24 hr 07/31/25 08/01/25 18:30 06:08 WBC 13.7 H 11.8 H RBC 3.84 L 3.26 L Hgb 11.7 L 10.1 L Hct 34.8 L 29.8 L MCV 90.7 91.3 MCH 30.4 31.0 MCHC 33.5 33.9 RDW 13.7 13.7 Plt Count 593 H 467 H Neut % (Auto) 73.5 64.6 Lymph % (Auto) 19.2 L 25.9 [place] % (Auto) 5.5 6.5 Eos % (Auto) 0.9 L 1.8 L Baso % (Auto) 0.9 1.2 Neut # (Auto) 36565 H 7600 H Lymph # (Auto) 2600 3100 [place] # (Auto) 800 800 Eos # (Auto) 100 200 Baso # (Auto) 100 100 ESR 102 H Sodium 140 137 Potassium 4.1 4.2 Chloride 105 106 Carbon Dioxide 25 23 BUN 11 11 Creatinine 1.06 1.05 Estimated GFR > 60 > 60 BUN/Creatinine Ratio 10.4 10.5 Glucose 87 90 Lactate 1.1 Calcium 9.3 8.3 L Total Bilirubin 0.3 AST 25 ALT 13 Alkaline Phosphatase 92 C-Reactive Protein 4.7 H Total Protein 10.2 H Albumin 4.2 Globulin 6.0 H Albumin/Globulin Ratio 0.7 L [facility] Medical History Suppurative hidradenitis Social History household members: family Tobacco & Substance Use Smoking Status: Unknown if ever smoked alcohol intake: current Assessment & Plan Assessment and plan (1) Unspecified open wound of left buttock, initial encounter: Status: Acute (2) Hidradenitis suppurativa of anogenital region: Status: Acute (3) Abscess of skin or subcutaneous tissue: Qualifiers: Site of cutaneous abscess: buttock Qualified Code(s): L02.31 - Cutaneous abscess of buttock Status: Acute (4) Cellulitis: Qualifiers: Site of cellulitis: buttock Qualified Code(s): L03.317 - Cellulitis of buttock Status: Acute Plan Recommend surgical consult to address largest HS as patient would likely benefit from surgical intervention at this time in 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 PROFEE Charge Codes Inpatient or Observation consultation: [id number]
[2025-08-01] MEDS: VANCOMYCIN 1,000 MG/200 ML PIGGYBACK 200 MG IV ×2 (14:56→23:55)
--- NOTE | 2025-08-01 15:01 | DI.US.S_ITS ---
PROCEDURE: US ABDOMEN LIMITED INDICATIONS: LEFT buttocks crease-- fluid collection? TECHNIQUE: Real-time focused scanning was performed of the abdomen, with image documentation. Color Doppler was also utilized. COMPARISON: [facility], CT, CT ABDOMEN PELVIS W CON, 07/31/2025, 18:46. FINDINGS: Scan is performed at the area of clinical concern involving the left buttock. At this site, there is a mild degree of fluid and gas seen. No drainable fluid collection is seen. Generalized skin thickening can be seen. Mildly increased vascularity is seen. IMPRESSION: Generalized skin thickening can be seen at the area of clinical concern of the left buttock, yet without a drainable abscess. Dictated by: Yandel Garcia M.D. on 08/01/2025 at 17:28 Approved by: Yandel Garcia M.D. on 08/01/2025 at 17:29
--- NOTE | 2025-08-01 15:05 | P.CONS_ITS ---
History of Present Illness Consult details Date Patient Seen: 08/01/25 Time Patient Seen: 15:05 Chief complaint: HS Chronic skin condition inflamed. Reason for consult: Hidradenitis suppurativa flare Narrative: Called by Dr. Meza to evaluate this very pleasant 35-year-old gentleman who presented to the emergency room with a flare of his chronic hidradenitis suppurativa. This gentleman reports that he has suffered with this condition for a number of years, and has recently over the last 4 years been placed on multiple suppressive antibiotics without success. He notes his neck skewer in [place] wish to place him on Humira or a similar medication, but he could not do so due to a lack of insurance at that time. He now thankfully is insured and plans on following up with the neck skewer. However he developed several lesions within the perineum and buttock crease that began draining. He was admitted to the hospitalist service. He reports no significant pain at this time and states that he has been primarily afebrile. His white blood cell count is slightly over 12. He is without additional complaints and appears to be an otherwise healthy young man. Meds Home Medications and Allergies Home Medications ?Medication ?Instructions ?Recorded ?Confirmed ?Type acetaminophen 325 mg tablet 975 mg (3 x 325 mg) PO Q8H #30 tabs 02/15/25 07/31/25 Rx clindamycin HCl 300 mg capsule 300 mg PO Q12H 07/31/25 07/31/25 History Allergies Allergy/AdvReac Type Severity Reaction Status Date / Time Penicillins Allergy Severe Hives Verified 07/31/25 17:02 Exam Vital Signs (past 8 hours): - 08/01/25 11:00 Temperature 99.6 F Pulse Rate 74 Respiratory Rate 16 Blood Pressure 114/73 Pulse Oximetry 96 Oxygen Flow Rate 0 Oxygen Delivery Method Room Air Oxygen Flow Rate 0 Narrative Exam Narrative: Afebrile; vital signs stable Alert and oriented x4 No scleral injection. Notable lesions on the mandibular ridge without current drainage Regular rate and rhythm without murmur Respirations clear to auscultation bilaterally; no wheezes, rales, or rhonchi Abdomen scaphoid, nondistended, nontender. Good bowel sounds Multiple wounds noted within the perineal crease and along bilateral buttock creases. There is a rather large indurated area in the left buttock crease measuring 5 x 5-1/2 cm. I am unable to express drainage in it is nontender at this time. It feels as if it is a chronically indurated area and I am unable to appreciate fluctuance. There are multiple lesions along his groin crease bilaterally and bilateral axilla as well, but none are currently draining Moves all extremities x4 Objective Labs 08/01/25 06:08 08/01/25 06:08 Labs: Laboratory Results - last 24 hr 07/31/25 08/01/25 18:30 06:08 WBC 13.7 H 11.8 H RBC 3.84 L 3.26 L Hgb 11.7 L 10.1 L Hct 34.8 L 29.8 L MCV 90.7 91.3 MCH 30.4 31.0 MCHC 33.5 33.9 RDW 13.7 13.7 Plt Count 593 H 467 H Neut % (Auto) 73.5 64.6 Lymph % (Auto) 19.2 L 25.9 Fannin % (Auto) 5.5 6.5 Eos % (Auto) 0.9 L 1.8 L Baso % (Auto) 0.9 1.2 Neut # (Auto) 26997 H 7600 H Lymph # (Auto) 2600 3100 [place] # (Auto) 800 800 Eos # (Auto) 100 200 Baso # (Auto) 100 100 ESR 102 H Sodium 140 137 Potassium 4.1 4.2 Chloride 105 106 Carbon Dioxide 25 23 BUN 11 11 Creatinine 1.06 1.05 Estimated GFR > 60 > 60 BUN/Creatinine Ratio 10.4 10.5 Glucose 87 90 Lactate 1.1 Calcium 9.3 8.3 L Total Bilirubin 0.3 AST 25 ALT 13 Alkaline Phosphatase 92 C-Reactive Protein 4.7 H Total Protein 10.2 H Albumin 4.2 Globulin 6.0 H Albumin/Globulin Ratio 0.7 L [facility] Medical History Suppurative hidradenitis Social History household members: family Tobacco & Substance Use Smoking Status: Unknown if ever smoked alcohol intake: current Assessment & Plan Assessment & Plan narrative: 35-year-old gentleman with chronic hidradenitis suppurativa admitted with an acute flare -will obtain an ultrasound of the lesion in his left buttock crease. Given that the patient has just eaten, and should there prove to be a fluid collection, we will make him NPO after midnight and proceed to the OR in the morning for drainage. Otherwise I would recommend Sitz baths and antimicrobials. We will recommend a bath with Hibiclens this p.m.. -many thanks to Dr. Meza for the opportunity to participate in the care of this very pleasant young man -the patient notes that after discharge she will return to [place] to again be evaluated by his neck skewer Time-Based Coding :: [TOTAL MINUTES] spent with patient and on the chart (including review of chart, obtaining history, exam, reviewing outside data, placing orders, documenting exam and treatment plan, and counseling patient) on [DATE]. PROFEE Charge Codes Inpatient or Observation consultation: [id number]
--- NOTE | 2025-08-01 18:46 | P.PN_ITS ---
Subjective Subjective Date Patient Seen: 08/01/25 Interval history: Chief complaint burning: Worsening of hidradenitis suppurativa in the perianal scrotal area as well as in bilateral axillae History of present illness: 07/31: (per nocturnal hospitalist) 35-year-old male with past medical history of hidradenitis suppurativa that affects multiple area on his body and most recently January 2025 the patient required surgical intervention by surgeon presents today with recurrent lesion in his bilateral groin area and buttocks. Per the patient's report, over the last week, he noticed new lesions on his groin area and there is increased pain and induration on his left buttocks. The patient states that chronically his scrotal area also has some drainage. The patient however denies any fever or chills. Denies any nausea, vomiting, diarrhea, chest pain or shortness of breath. The patient gets concerned of worsening infection and hence presents to our ER today. In the emergency room, the patient was hemodynamically stable without sepsis. Labs were relatively benign except for WBC of 13 with normal lactic acid of 1.1. CT scan of the abdomen and pelvics shows moderate skin thickening of the bilateral buttocks and perineal region which is severe on the left side finding may represent cellulitis with tiny punctate of gas noted on the medial left buttocks region infection from gas-forming organism versus early 40 years gangrene cannot be excluded. ER physician did discuss the finding with Dr. Parkinson our general surgeon who knows the patient well from last January who recommend that we can admit the patient here for IV antibiotics. Dr. Parkinson does not think it is gas gangrene at this point. IV vancomycin, clindamycin and meropenem started Patient's personal computer network analyst in [place] wish to placed him on Humira but it could not due to the lack of insurance of the time but now he has insurance and we will be following up with his urologist Hospital course: 08/01: No fevers or chills overnight patient was evaluated by Urology for possible Yobany's gangrene however there does not seem to be any evidence of this. Was also evaluated by General surgery and Wound Care [facility] Blood cell count elevated at 12 antibiotics have been continued except clindamycin Area of the buttocks was evaluated with ultrasound IMPRESSION: Generalized skin thickening can be seen at the area of clinical concern of the left buttock, yet without a drainable abscess. Review of systems: No fever or chills rigors No chest pain shortness for breath Nausea vomiting Physical exam: Pleasant gentleman no acute distress Various stages of drainage inflammation abscess or seen in axillae groin around the scrotum in the cleavage of the buttocks Assessment and plan: Hidradenitis suppurativa with inflammation and work worsening. * Continue vancomycin and meropenem * Appreciate expertise of Urology and General surgery * No indication for surgical intervention * Appreciate wound care recommendations for management: * ok to apply iodoflex to open areas QD, otherwise clean area daily with dakins or vashe and cover with mepilex or ABD pads dependent on drainage DVT prophylaxis: * Not indicated patient is ambulatory Code status: * Full code Disposition: * Continue antibiotics for another 48 hours then discharge to [place] to follow up with personal computer network analyst and place on definitive disease modifying therapy with Humira Time based billing: * 35 minutes were involved in evaluation of the patient including [id number] physical patient evaluation physical examination discussion with multiple consultants review of objective laboratory findings Exam Vital Signs (past 8 hours): - 08/01/25 11:00 Temperature 99.6 F Pulse Rate 74 Respiratory Rate 16 Blood Pressure 114/73 Pulse Oximetry 96 Oxygen Flow Rate 0 Oxygen Delivery Method Room Air Oxygen Flow Rate 0 Objective Labs 08/01/25 06:08 08/01/25 06:08 Labs: Laboratory Results - last 24 hr 07/31/25 08/01/25 18:30 06:08 WBC 13.7 H 11.8 H RBC 3.84 L 3.26 L Hgb 11.7 L 10.1 L Hct 34.8 L 29.8 L MCV 90.7 91.3 MCH 30.4 31.0 MCHC 33.5 33.9 RDW 13.7 13.7 Plt Count 593 H 467 H Neut % (Auto) 73.5 64.6 Lymph % (Auto) 19.2 L 25.9 [place] % (Auto) 5.5 6.5 Eos % (Auto) 0.9 L 1.8 L Baso % (Auto) 0.9 1.2 Neut # (Auto) 41687 H 7600 H Lymph # (Auto) 2600 3100 [place] # (Auto) 800 800 Eos # (Auto) 100 200 Baso # (Auto) 100 100 ESR 102 H Sodium 140 137 Potassium 4.1 4.2 Chloride 105 106 Carbon Dioxide 25 23 BUN 11 11 Creatinine 1.06 1.05 Estimated GFR > 60 > 60 BUN/Creatinine Ratio 10.4 10.5 Glucose 87 90 Lactate 1.1 Calcium 9.3 8.3 L Total Bilirubin 0.3 AST 25 ALT 13 Alkaline Phosphatase 92 C-Reactive Protein 4.7 H Total Protein 10.2 H Albumin 4.2 Globulin 6.0 H Albumin/Globulin Ratio 0.7 L PFSH Medical History Suppurative hidradenitis Social History household members: family Smoking Status: Unknown if ever smoked alcohol intake: current Assessment & Plan Time-Based Coding :: [TOTAL MINUTES] spent with patient and on the chart (including review of chart, obtaining history, exam, reviewing outside data, placing orders, documenting exam and treatment plan, and counseling patient) on [DATE].
[2025-08-01 19:00] VITALS: BP 109/67; PULSE 73; RESP 18; TEMP 37.2; O2SAT 100
[2025-08-02] MEDS: MEROPENEM 1 GM in SODIUM CHLORIDE 0.9% 100 ML IV ×3 (05:08→21:46)
[2025-08-02 05:15] LABS: Blood Urea Nitrogen 12 mg/dL (9-20); Calcium 9.0 mg/dL (8.4-10.2); Carbon Dioxide 25 mmol/L (22-32); Chloride 107 mmol/L (98-107); Estimated Glomerular Filt Rate > 60 mL/min (>60); Glucose 107 mg/dL (70-99); HEMOLYSIS < 15 (0-50); Potassium 4.2 mmol/L (3.4-5.1); Sodium 138 mmol/L (137-145)
[2025-08-02] MEDS: VANCOMYCIN 1,000 MG/200 ML PIGGYBACK 200 MG IV (06:04)
--- NOTE | 2025-08-02 08:04 | PM.PN.1 ---
Subjective Subjective Interval history: Course: 07/31: (per nocturnal hospitalist) 35-year-old male with past medical history of hidradenitis suppurativa that affects multiple area on his body and most recently January 2025 the patient required surgical intervention by surgeon presents today with recurrent lesion in his bilateral groin area and buttocks. Per the patient's report, over the last week, he noticed new lesions on his groin area and there is increased pain and induration on his left buttocks. The patient states that chronically his scrotal area also has some drainage. The patient however denies any fever or chills. Denies any nausea, vomiting, diarrhea, chest pain or shortness of breath. The patient gets concerned of worsening infection and hence presents to our ER today. In the emergency room, the patient was hemodynamically stable without sepsis. Labs were relatively benign except for WBC of 13 with normal lactic acid of 1.1. CT scan of the abdomen and pelvics shows moderate skin thickening of the bilateral buttocks and perineal region which is severe on the left side finding may represent cellulitis with tiny punctate of gas noted on the medial left buttocks region infection from gas-forming organism versus early 40 years gangrene cannot be excluded. ER physician did discuss the finding with Dr. Parkinson our general surgeon who knows the patient well from last January who recommend that we can admit the patient here for IV antibiotics. Dr. Parkinson does not think it is gas gangrene at this point. IV vancomycin, clindamycin and meropenem started Patient's product introduction manager in [place] wish to placed him on Humira but it could not due to the lack of insurance of the time but now he has insurance and we will be following up with his urologist Hospital course: 08/01: No fevers or chills overnight patient was evaluated by Urology for possible Yobany's gangrene however there does not seem to be any evidence of this. Was also evaluated by General surgery and Wound Care [facility] Blood cell count elevated at 12 antibiotics have been continued except clindamycin Area of the buttocks was evaluated with ultrasound IMPRESSION: Generalized skin thickening can be seen at the area of clinical concern of the left buttock, yet without a drainable abscess. S: He was improving, strainer tender in all affected areas. Less drainage. O: NAD, alert and oriented. Fluent speech. Lungs are clear, normal rate and effort. Heart is regular, no murmur gallop or rub. Abdomen is soft, non distended. Extremities are free of edema. Wounds: not indurated and draining. IMAGING: US: IMPRESSION: Generalized skin thickening can be seen at the area of clinical concern of the left buttock, yet without a drainable abscess. CTAP: Moderate skin thickening of the bilateral buttocks and perineal region which is more severe on the left side. Findings may represent cellulitis although tiny punctate of gas noted in the medial left buttocks region. Infection from gas-forming organism versus early Yobany's gangrene not excluded. A/P: 1. Hidradenitis suppurativa with cellulitis, active. PLAN: -Continue Abx. Exam Vital Signs (past 8 hours): Oxygen Delivery Method Room Air Oxygen Flow Rate 0 Objective Labs 08/01/25 06:08 08/02/25 04:20 Labs: Laboratory Results - last 24 hr 08/02/25 04:20 Sodium 138 Potassium 4.2 Chloride 107 Carbon Dioxide 25 BUN 12 Creatinine 1.10 Estimated GFR > 60 BUN/Creatinine Ratio 10.9 Glucose 107 H Calcium 9.0 [facility] Medical History Suppurative hidradenitis Social History household members: family Smoking Status: Unknown if ever smoked alcohol intake: current Assessment & Plan Time-Based Coding :: [TOTAL MINUTES] spent with patient and on the chart (including review of chart, obtaining history, exam, reviewing outside data, placing orders, documenting exam and treatment plan, and counseling patient) on [DATE].
[2025-08-02 08:23] VITALS: BP 114/74; PULSE 78; RESP 17; TEMP 36.3; O2SAT 100
[2025-08-02] MEDS: SODIUM CHLORIDE 0.9% FLUSH 10 ML IV ×2 (08:31→21:11)
--- NOTE | 2025-08-02 09:57 | P.PN_ITS ---
Subjective Subjective Date Patient Seen: 08/02/25 Time Patient Seen: 09:57 Interval history: Ultrasound of left buttock crease performed last p.m. without drainable fluid collection. Patient reports ?I feel much better?. Has remained afebrile. Tolerance of a diet. Ambulating about the room. Exam Vital Signs (past 8 hours): - 08/02/25 08:23 Temperature 97.3 F L Pulse Rate 78 Respiratory Rate 17 Blood Pressure 114/74 Pulse Oximetry 100 Oxygen Flow Rate 0 Oxygen Delivery Method Room Air Oxygen Flow Rate 0 Narrative Exam Narrative: Afebrile; vital signs stable Regular rate and rhythm without murmur Respirations clear to auscultation bilaterally; normal chest wall excursion Abdomen is scaphoid and nontender Wounds with moderate improvement since yesterday. Area in question in the left buttock crease is without significant change, but remains without fluctuance or obvious drainage. Erythematous areas have appeared to improve. Move all extremities x4 Objective Labs 08/01/25 06:08 08/02/25 04:20 Labs: Laboratory Results - last 24 hr 08/02/25 04:20 Sodium 138 Potassium 4.2 Chloride 107 Carbon Dioxide 25 BUN 12 Creatinine 1.10 Estimated GFR > 60 BUN/Creatinine Ratio 10.9 Glucose 107 H Calcium 9.0 PFSH Medical History Suppurative hidradenitis Social History household members: family Smoking Status: Unknown if ever smoked alcohol intake: current Assessment & Plan Assessment & Plan narrative: 35-year-old gentleman with chronic hidradenitis suppurativa, admitted with flare -continuing to improve. Would recommend continuation of IV antibiotics. Repeat CBC in a.m. -continue current wound management -no need for surgical intervention at this time -we will continue to follow Time-Based Coding :: [TOTAL MINUTES] spent with patient and on the chart (including review of chart, obtaining history, exam, reviewing outside data, placing orders, documenting exam and treatment plan, and counseling patient) on [DATE]. PROFEE [employer] Member Document charge(s): No Charge Codes Subsequent inpatient/observation care: 90098
[2025-08-02] MEDS: VANCOMYCIN TROUGH 1 REQUEST MISC (15:09)
--- NOTE | 2025-08-02 15:55 | CM.DPC ---
DCP Note TECHNICAL TRAINING COORDINATOR reviewed EMR received fax from pts employer agency, [employer]. RN PARUL La. spoke with Bessie (p and f [phone]). Asked for clinicals. TECHNICAL TRAINING COORDINATOR faxed requested clinicals. report the fax she sent included the necessary documents for provider to complete and for us to fax back, rec doing it day of dc so it is the most accurate. per provider in morning rounds, anticipate another day or so at least of IV abx. P: dc back home to [place], transport coordinated by agency, need to complete employer pwk. will continue to follow closely for DCP Coordination MATHEUS Camacho
[2025-08-02] MEDS: VANCOMYCIN 750 MG/150 ML PIGGYBACK 150 MG IV (18:10)
[2025-08-02 20:00] VITALS: BP 114/75; PULSE 77; RESP 18; TEMP 36.9; O2SAT 100
[2025-08-03] MEDS: VANCOMYCIN 750 MG/150 ML PIGGYBACK 150 MG IV ×2 (02:38→10:20)
[2025-08-03] MEDS: MEROPENEM 1 GM in SODIUM CHLORIDE 0.9% 100 ML IV ×2 (05:41→13:09)
[2025-08-03 08:39] VITALS: BP 110/62; PULSE 73; RESP 19; TEMP 36.6; O2SAT 99
[2025-08-03] MEDS: SODIUM CHLORIDE 0.9% FLUSH 10 ML IV (10:21)
--- NOTE | 2025-08-03 14:46 | CM.DPNOTE ---
Addendum entered by MATHEUS Camacho 08/03/25 16:14: [employer]ER M[employer] emailed completed dc summary to Bessie. no further CM needs at this time SL Original Note: DCP Note DUMPER MOLD CLEANER reviewed EMR per provider cleared to dc. completed forms for work. [employer] faxed completed forms to Bessie LALA CM at [phone] dc summ needed when complete, emailed to [employer] coordinated with Bessie (p [phone]). report they are working on transport, have a hotel for him for the night, and will pay for transport from . provided [place] taxi number if cannot get Uber. agreed to help pt pay for transport to [facility] to moss picker PO abx. DUMPER MOLD CLEANER updated pt on the plan. appreciated updates. pt denies any additional DCP concerns from this DUMPER MOLD CLEANER at this time. P: dc to hotel for night, company to arrange transport home tomorrow. will moss picker meds tonight. no further needs at this time. will continue to follow as needed in case additional needs arise MATHEUS Camacho
--- NOTE | 2025-08-03 15:27 | PC.NURSE ---
1520: discharge instructions given and understood by patient. PIV removed. Pt transported to private vehicle at ED entrance.
--- NOTE | 2025-08-03 15:45 | PM.DS.1 ---
History of Present Illness History of Present Illness Chief complaint: HS Chronic skin condition inflamed. Narrative: From H&P: 35-year-old male with past medical history of hidradenitis suppurativa that affects multiple area on his body and most recently January 2025 the patient required surgical intervention by surgeon presents today with recurrent lesion in his bilateral groin area and buttocks. Per the patient's report, over the last week, he noticed new lesions on his groin area and there is increased pain and induration on his left buttocks. The patient states that chronically his scrotal area also has some drainage. The patient however denies any fever or chills. Denies any nausea, vomiting, diarrhea, chest pain or shortness of breath. The patient gets concerned of worsening infection and hence presents to our ER today. In the emergency room, the patient was hemodynamically stable without sepsis. Labs were relatively benign except for WBC of 13 with normal lactic acid of 1.1. CT scan of the abdomen and pelvics shows moderate skin thickening of the bilateral buttocks and perineal region which is severe on the left side finding may represent cellulitis with tiny punctate of gas noted on the medial left buttocks region infection from gas-forming organism versus early 40 years gangrene cannot be excluded. ER physician did discuss the finding with Dr. Parkinson our general surgeon who knows the patient well from last January who recommend that we can admit the patient here for IV antibiotics. Dr. Parkinson does not think it is gas gangrene at this point. IV vancomycin, clindamycin and meropenem started. Discharge Providers Provider Date of admission: 07/31/25 21:39 Discharge Date: 08/03/25 Primary care physician: Doctor Tanya MD Consults: 08/01/25 12:52 Consult to Wound Care Routine Comment: Hidradenitis suppurativa Consulting Provider: Ashkan- Wound Care 08/01/25 15:03 Consult to General Surgery Routine Comment: Dr. Casey Ferrell general surgery Consulting Provider: Amalia Ferrell Reason for consultation: Hidradenitis suppurativa Discharge provider: John Ramirez MD Summary Hospital Course Discharge Diagnosis: 1. Hidradenitis suppurativa with cellulitis, improving. Hospital Course: Hospital course: 08/01: No fevers or chills overnight patient was evaluated by Urology for possible Yobany's gangrene however there does not seem to be any evidence of this. Was also evaluated by General surgery and Wound Care [facility] Blood cell count elevated at 12 antibiotics have been continued except clindamycin Area of the buttocks was evaluated with ultrasound 08/02: Improved symptoms of pain and improved appearance of skin, No drainage or Abscess. 08/03: Stable for discharge on oral antibiotics. Status at Discharge Cognitive/behavioral status at discharge: oriented Functional status at discharge: independent ambulation Overall status at discharge: patient is back to baseline Time Spent with Patient Time spent: Greater than 30 minutes Exam Vital Signs (past 8 hours): - 08/03/25 08:39 Temperature 97.8 F Pulse Rate 73 Respiratory Rate 19 Blood Pressure 110/62 Pulse Oximetry 99 Oxygen Flow Rate 0 Oxygen Delivery Method Room Air Oxygen Flow Rate 0 Narrative Exam Narrative: NAD, alert and oriented. Fluent speech. Lungs are clear, normal rate and effort. Heart is regular, no murmur gallop or rub. Abdomen is soft, non distended. Extremities are free of edema. Objective Imaging Multiple studies: : Radiologist's impression: US: IMPRESSION: Generalized skin thickening can be seen at the area of clinical concern of the left buttock, yet without a drainable abscess. CTAP: Moderate skin thickening of the bilateral buttocks and perineal region which is more severe on the left side. Findings may represent cellulitis although tiny punctate of gas noted in the medial left buttocks region. Infection from gas-forming organism versus early Yobany's gangrene not excluded. Labs 08/01/25 06:08 08/02/25 04:20 [facility] Medical History Suppurative hidradenitis Social History household members: family Smoking Status: Unknown if ever smoked alcohol intake: current Discharge Assessment & Plan Assessment and Plan Assessment: 1. Hidradenitis suppurativa with cellulitis, improving. Plan of Treatment: Stable for discharge on oral buttocks. Levofloxacin 500 days. In which him to 7 days. Discharge Plan Discharge Plan Patient Disposition: Home Provider Discharge Comment: Stable for discharge on oral antibiotics. Discharge orders & Medications Prescriptions: New levofloxacin 500 mg tablet 500 mg PO DAILY Qty: 7 0RF Continued acetaminophen 325 mg Tablet 975 mg PO Q8H Qty: 30 0RF Discontinued clindamycin HCl 300 mg capsule 300 mg PO Q12H Follow up/Referrals: Tanya,MD Eduardo [Primary Care Provider, Medical] Discharge Health Status Multidrug resistant organism: MRSA Diet/Activity/Treatments Diet: Regular Activity: As tolerated. Visit Report/Discharge Packet Instructions: DI for Cellulitis -- Adult Stand Alone Forms: Patient Portal/API Discharge Data Primary Care Provider: Doctor Tanya
== END 2025-08-03 15:20 | disposition home or self-care (01) | DRG 385 ==
LOC: ED 18:39 → AC 21:39
PROVIDERS: Physician Assistant; Admitting Provider Internal Medicine; Emergency Provider Emergency Medicine; Referring Provider Emergency Medicine; Visit Provider Internal Medicine
DX: L73.2 Hidradenitis suppurativa (principal); L03.317 Cellulitis of buttock; S31.829A Unspecified open wound of left buttock, initial encounter; X58.XXXA Exposure to other specified factors, initial encounter
CPT/HCPCS: 36415; 71045; 74177; 76705; 80048; 80053; 80202; 83605; 85025; 85651; 86140; 87040; 87070; 87075; 87077; 87205; 96365; 96366; 96367; 99284; J0696; J2185; J3375; J7030; J7050; Q9967